=== PATIENT | female | born 1950 | race Caucasian/White ===

== ENCOUNTER 2017-01-15 17:04 | Inpatient (IN) | payer MEDICARE ==
[~2017-01-15] VITALS: Ht 152.4 cm; Wt 102.1 kg
[~2017-01-15 17:04] MED LIST: ALBU0.632 IH; ALPR0.5T PO; ASPI81TA57 PO; CALC-671 PO; CARV6.252 PO; CITA20TA12 PO; CRAN250C PO; ENAL20TA PO; FURO40TA PO; HYDR-3720 PO; INSU100I14 SQ; INSU100V5 SQ; MAGN400T6 PO; MELO-195 PO; METF-380 PO; MONT10TA21 PO; MULT-166 PO; NITR-65 PO; OMEG-12 PO; OMEG1CAP PO; POTA10TA36 PO; POTASSIUM GLUCONATE PO; RT-ALBUINH IH; SENN-75 PO; SIMV40TA PO
--- OUTSIDE RECORDS SUMMARY | 2017-01-15 17:08 | XMS REPORT ---
Author Author HERACLIO MCBRIDE [facility] eClinicalWorks Address Unknown Phone Unavailable Care Team Providers Care Power Equipment Technology Instructor Name Role Phone HERACLIO MCBRIDE CP Unavailable Allergies No Known Allergies Problems Problem Type Condition ICD-9 Code Onset Dates Condition Status Problem Memory loss 780.93 Active Problem Depressive disorder, not elsewhere classified 311 Active Problem Other and unspecified hyperlipidemia 272.4 Active Problem Hyperlipemia 272.4 Active Problem Diabetes mellitus 250.00 Active Problem Hypertension 401.9 Active Problem Essential hypertension, benign 401.1 Active Problem Diabetes mellitus without mention of complication, type II or unspecified type, not stated as uncontrolled 250.00 Active Problem Need for prophylactic vaccination and inoculation, Influenza V04.81 Active Problem Routine general medical examination at health care facility V70.0 Active Assessment Hyperthyroidism, subclinical 242.90 Active Problem Unspecified vitamin D deficiency 268.9 Active Problem Anxiety state, unspecified 300.00 Active Problem Obstructive sleep apnea (adult) (pediatric) 327.23 Active Problem Asthma, unspecified, unspecified status 493.90 Active Problem Thyrotoxicosis without mention of goiter or other cause, without mention of thyrotoxic crisis or storm 242.90 Active Problem Unspecified myalgia and myositis 729.1 Active Medications No Known Medications Procedures Procedure Coding System Code Date VENIPUNCT, ROUTINE* CPT-4 68986 Feb 21, 2015 [facility] NOBLL Feb 21, 2015 Results Name Result Date Reference Range Unit Abnormality Flag ROUTINE VENIPUNCTURE TSH Summary Purpose eClinicalWorks Submission
--- OUTSIDE RECORDS SUMMARY | 2017-01-15 17:08 | XMS REPORT ---
Author Author HERACLIO MCBRIDE [facility] eClinicalWorks Address Unknown Phone Unavailable Care Team Providers Care Parts Salesman Name Role Phone HERACLIO MCBRIDE Unavailable Allergies No Known Allergies Problems Problem [...] Coding System Code Date VENIPUNCT, ROUTINE* CPT-4 16861 Mar 23, 2015 [facility] NOBLL Mar 23, 2015 Results No Known Results Summary Purpose Career ElementinicalWorks Submission
--- OUTSIDE RECORDS SUMMARY | 2017-01-15 17:09 | XMS REPORT ---
Author Author HERACLIO MCBRIDE eClinicalWorks Address Unknown Phone Unavailable Care Team Providers Care Primer And Powder Canning Leader Name Role Phone HERACLIO MCBRIDE CP Unavailable Allergies No Known Allergies Problems Problem Type Condition Code Onset Dates Condition Status Problem Vitamin D deficiency E55.9 Active Problem Moderate persistent asthma without complication J45.40 Active Problem Anxiety F41.9 Active Problem Chronic prescription opiate use Z79.899 Active Problem Chronic prescription benzodiazepine use Z79.899 Active Problem Chronic pain syndrome G89.4 Active Problem Major depressive disorder, recurrent episode, unspecified severity F33.9 Active Problem Hyperlipidemia, unspecified hyperlipidemia E78.5 Active Problem Type 2 diabetes mellitus with peripheral neuropathy E11.42 Active Problem Essential hypertension I10 Active Problem Takotsubo cardiomyopathy I51.81 Active Problem Obstructive sleep apnea G47.33 Active Problem Other specified hypothyroidism E03.8 Active Medications No Known Medications Results No Known Results Summary Purpose eClinicalWorks Submission
--- OUTSIDE RECORDS SUMMARY | 2017-01-15 17:09 | XMS REPORT ---
Author Author HERACLIO MCBRIDE [facility] [place] eClinicalWorks Address Unknown Phone Unavailable Care Team Providers Care Rice Field Worker Name Role Phone HERACLIO MCBRIDE CP Unavailable Allergies No Known Allergies Problems Problem Type Condition Code Onset Dates Condition Status Problem Anxiety F41.9 Active Problem Hyperlipidemia, unspecified hyperlipidemia E78.5 Active Problem Moderate persistent asthma without complication J45.40 Active Problem Chronic prescription opiate use Z79.899 Active Problem Chronic prescription benzodiazepine use Z79.899 Active Problem Chronic pain syndrome G89.4 Active Problem Type 2 diabetes mellitus without complication E11.9 Active Problem Major depressive disorder, recurrent episode, unspecified severity F33.9 Active Problem Type 2 diabetes mellitus with peripheral neuropathy E11.42 Active Problem Essential hypertension I10 Active Problem Takotsubo cardiomyopathy I51.81 Active Problem Obstructive sleep apnea G47.33 Active Assessment Hyperlipidemia, unspecified hyperlipidemia E78.5 Active Problem Other specified hypothyroidism E03.8 Active Assessment History of radioactive iodine thyroid ablation Z92.3 Active Problem Vitamin D deficiency E55.9 Active Medications No Known Medications Procedures Procedure Coding System Code Date VENIPUNCT, ROUTINE* CPT-4 72455 Mar 05, 2016 [facility] NOBLL Mar 05, 2016 Results No Known Results Summary Purpose eClinicalWorks Submission
--- OUTSIDE RECORDS SUMMARY | 2017-01-15 17:09 | XMS REPORT ---
Author Author HERACLIO MCBRIDE eClinicalWorks Address Unknown Phone Unavailable Care Team Providers Care Milieu Counselor Name Role Phone HERACLIO MCBRIDE Unavailable Allergies No Known Allergies Problems Problem Type Condition Code Onset Dates Condition Status Problem Takotsubo cardiomyopathy I51.81 Active Problem Other specified hypothyroidism E03.8 Active Problem Obstructive sleep apnea G47.33 Active Problem Type 2 diabetes mellitus without complication E11.9 Active Problem Major depressive disorder, recurrent episode, unspecified severity F33.9 Active Problem Essential hypertension I10 Active Problem Anxiety F41.9 Active Problem Vitamin D deficiency E55.9 Active Problem Hyperlipidemia, unspecified hyperlipidemia E78.5 Active Problem Moderate persistent asthma without complication J45.40 Active Medications No Known Medications Results No Known Results Summary Purpose eClinicalWorks Submission
--- OUTSIDE RECORDS SUMMARY | 2017-01-15 17:09 | XMS REPORT ---
Author Author HERACLIO MCBRIDE eClinicalWorks Address Unknown Phone Unavailable Care Team Providers Care Animal Trainer Supervisor Name Role Phone HERACLIO MCBRIDE Unavailable Allergies [...]
--- OUTSIDE RECORDS SUMMARY | 2017-01-15 17:09 | XMS REPORT ---
Author Author HERACLIO MCBRIDE eClinicalWorks Address Unknown Phone Unavailable Care Team Providers Care Transmission Superintendent Name Role Phone HERACLIO MCBRIDE Unavailable Allergies [...] persistent asthma without complication J45.40 Active Medications Medication Code System Code Instructions Start Date End Date Status Dosage Hydrocodone-Acetaminophen [facility] [address]-49 10-325 MG September 14, 2014 take 1 tablet by Oral route every 6 hours as needed for pain PRN Results No Known Results Summary Purpose eClinicalWorks Submission
--- OUTSIDE RECORDS SUMMARY | 2017-01-15 17:09 | XMS REPORT ---
Author Author HERACLIO MCBRIDE eClinicalWorks Address Unknown Phone Unavailable Care Team Providers Care Directory Compiler Name Role Phone HERACLIO MCBRIDE Unavailable Allergies [...]
--- OUTSIDE RECORDS SUMMARY | 2017-01-15 17:09 | XMS REPORT ---
Author Author HERACLIO MCBRIDE eClinicalWorks Address Unknown Phone Unavailable Care Team Providers Care Gas Leak Inspector Name Role Phone HERACLIO MCBRIDE Unavailable Allergies, Adverse Reactions, Alerts Substance Reaction Event Type Erythromycin Base Info Not Available Drug Allergy Problems Problem Type Condition Code Onset Dates [...] Moderate persistent asthma without complication J45.40 Active Assessment Hyperlipidemia, unspecified hyperlipidemia E78.5 Active Assessment Osteoarthritis 715.90 Active Assessment Hyperthyroidism, subclinical 242.90 Active Assessment Anxiety F41.9 Active Assessment Moderate persistent asthma without complication J45.40 Active Assessment Encounter for immunization Z23 Active Assessment Essential hypertension I10 Active Assessment Takotsubo cardiomyopathy I51.81 Active Assessment Type 2 diabetes mellitus without complication E11.9 Active Medications Medication Code System Code Instructions Start Date End Date Status Dosage Qvar [facility] [address]-32 40 mcg/actuation Inhalation Twice daily October 21, 2013 2 puffs Xanax [facility] [address]-93 0.5 MG September 14, 2014 take 1 tablet by Oral route 3 times per day PRN Klor-Con M10 [facility] [address]-46 10 MEQ Orally Twice a day 1 tablet Calcium ND 0 Oral 1 tab Atorvastatin Calcium [facility] 93055737602 80 MG oral daily 1 tablet at bedtime [place]-3 [facility] [address] 1,050-1,200 mg Jun 14, 2013 2 Capsule 1 time per day Carvedilol [facility] [address]-68 25 MG oral twice daily one tablet Citalopram Hydrobromide [facility] 42845427274 40 MG oral daily 1 tablet Ventolin HFA [facility] 66748865604 108 (90 Base) MCG/ACT inhalation q4 hours prn shortness of breath 1 puff Vitamin D (Cholecalciferol) [facility] [address]-64 1000 UNIT Orally Once a day 1 tablet Metamucil [facility] [address]36 0.52 gram Jun 14, 2013 1 Capsule 1 time per day Nystatin [facility] [address]-25 100,000 unit/gram Jun 14, 2013 apply to the affected area(s) by Topical route 1 time per day Albuterol Sulfate [facility] [address]-68 2.5 mg /3 mL (0.083 %) Jun 14, 2013 inhale 3 milliliters (2.5 mg) by nebulization route 4 times per day as needed Enalapril Maleate [facility] 08975182173 20 MG oral daily one tablet Vitamin B-12 [facility] [address] 1,000 mcg December 27, 2013 1 Tablet every day Cinnamon [facility] [address]-57 500 MG Orally not defined Aspirin [facility] [address]-38 81 mg Jun 14, 2013 take 1 tablet (81 mg ) by oral route once daily Levemir Flexpen [facility] 0 100 UNIT/ML Subcutaneous 2 times a day 20 units Hydrocodone-Acetaminophen [facility] [address]-75 10-325 MG September 14, 2014 take 1 tablet by Oral route every 6 hours as needed for pain PRN Furosemide [facility] [address]-13 40 MG Orally Once a day Apr 25, 2015 1 tablet NovoLog Flexpen [facility] [address]-99 100 UNIT/ML Subcutaneous 3 times a day 20 units plus sliding scale Procedures Procedure Coding System Code Date FLUZONE TRIV HIGH DOSE (65 & UP)-SANOFI PASTEUR-2014 CPT-4 54926 Apr 25, 2015 SINGLE IMMUNIZATION ADMIN CPT-4 77614 Apr 25, 2015 GLYCATED HEMOGLOBIN TEST CPT-4 79823 Apr 25, 2015 [facility] VISIT ESTABLISHED PATIENT CPT-4 G0467 Apr 25, 2015 [facility] NOBLL Apr 25, 2015 VENIPUNCT, ROUTINE* CPT-4 34852 Apr 25, 2015 Office Visit, Est Pt., Level 4 CPT-4 03202 Apr 25, 2015 Vital Signs Date/Time: Apr 25, 2015 Temperature 97.8 F Weight 208.3 lbs Height 61 in BMI 39.35 Index Blood Pressure Diastolic 80 mmHg Blood Pressure Systolic 126 mmHg Cardiac Monitoring Heart Rate 86 bpm Results Name Result Date Reference Range Unit Abnormality Flag A1C (IN HOUSE) Immunizations Vaccine Administration Date FLUZONE TRIV HIGH DOSE (65 & UP)-SANOFI PASTEUR-2014Apr 25, 2015 Summary Purpose eClinicalWorks Submission
--- OUTSIDE RECORDS SUMMARY | 2017-01-15 17:09 | XMS REPORT ---
Author Author HERACLIO MCBRIDE eClinicalWorks Address Unknown Phone Unavailable Care Team Providers Care Us Marketing Director Name Role Phone HERACLIO MCBRIDE CP Unavailable [...] Problem Other specified hypothyroidism E03.8 Active Problem Vitamin D deficiency E55.9 Active Medications No Known Medications Results No Known Results Summary Purpose eClinicalWorks Submission
--- OUTSIDE RECORDS SUMMARY | 2017-01-15 17:09 | XMS REPORT ---
Author Author HERACLIO MCBRIDE [facility] eClinicalWorks Address Unknown Phone Unavailable Care Team Providers Care Underwriter Solicitation Director Name Role Phone HERACLIO MCBRIDE Unavailable Allergies [...] examination at health care facility V70.0 Active Problem Unspecified vitamin D deficiency 268.9 Active Problem Anxiety state, unspecified 300.00 Active Problem Obstructive sleep apnea (adult) (pediatric) 327.23 Active Problem Asthma, unspecified, unspecified status 493.90 Active Problem Thyrotoxicosis without mention of goiter or other cause, without mention of thyrotoxic crisis or storm 242.90 Active Problem Unspecified myalgia and myositis 729.1 Active Medications No Known Medications Results No Known Results Summary Purpose eClinicalWorks Submission
--- OUTSIDE RECORDS SUMMARY | 2017-01-15 17:09 | XMS REPORT ---
Author Author CHARLY TEE [facility] eClinicalWorks Address Unknown Phone Unavailable Care Team Providers Care Professor Sculpture Name Role Phone CHARLY TEE CP Unavailable Allergies, Adverse Reactions, Alerts Substance Reaction [...] Problem Obstructive sleep apnea G47.33 Active Assessment Pharyngitis J02.9 Active Problem Other specified hypothyroidism E03.8 Active Assessment Sore throat J02.9 Active Problem Vitamin D deficiency E55.9 Active Medications Medication Code System Code Instructions Start Date End Date Status Dosage Cinnamon [facility] [address]-11 500 MG Orally not defined Levemir Flexpen [facility] 0 100 UNIT/ML Subcutaneous 2 times a day 20 units Amoxicillin [facility] [address]-33 500 MG Orally Three times a day October 17, 2015 October 27, 2015 1 capsule Metamucil [facility] [address]406 0.52 gram Jun 14, 2013 1 Capsule 1 time per day Atorvastatin Calcium [facility] [address]-40 80 MG oral daily 1 tablet at bedtime Accu-Chek Jodee SmartView [facility] [address]-67 w/Device Jun 15, 2015 as directed Albuterol Sulfate [facility] [address]-13 2.5 mg /3 mL (0.083 %) Jun 14, 2013 inhale 3 milliliters (2.5 mg) by nebulization route 4 times per day as needed NovoLog Flexpen [facility] [address]-15 100 UNIT/ML Subcutaneous 3 times a day 20 units plus sliding scale Vitamin B-12 [facility] [address] 1,000 mcg December 27, 2013 1 Tablet every day Qvar [facility] [address]-43 40 mcg/actuation Inhalation Twice daily October 21, 2013 2 puffs Furosemide [facility] [address]-50 40 MG Orally Once a day Apr 25, 2015 1 tablet Carvedilol [facility] [address]-22 25 MG oral 2 times a day one tablet Accu-Chek SmartView ND 0 Test Strips 4 times a day Jun 15, 2015 as directed Citalopram Hydrobromide [facility] 94479128175 40 MG oral daily 1 tablet Vitamin D (Cholecalciferol) [facility] [address]-46 1000 UNIT Orally Once a day 1 tablet Calcium ND 0 Oral 1 tab Montelukast Sodium [facility] [address]-69 10 MG Orally Once a day September 17, 2015 1 tablet in the evening [place]-3 [facility] [address] 1,050-1,200 mg Jun 14, 2013 2 Capsule 1 time per day Nystatin [facility] [address]-88 100,000 unit/gram Jun 14, 2013 apply to the affected area(s) by Topical route 1 time per day Gabapentin [facility] [address]-68 300 MG Orally Three times a day (start once daily at nightx 1wk, then twice pubbwu1rq, then 3x daily) October 12, 2015 1 capsule Xanax [facility] [address]-98 0.5 MG September 14, 2014 take 1 tablet by Oral route 3 times per day PRN Aspirin [facility] [address]-14 81 mg Jun 14, 2013 take 1 tablet (81 mg ) by oral route once daily Klor-Con M10 [facility] [address]-95 10 MEQ Orally Twice a day December 12, 2015 1 tablet Ventolin HFA [facility] 83530184030 108 (90 Base) MCG/ACT inhalation q4 hours prn shortness of breath 1 puff Hydrocodone-Acetaminophen [facility] [address]-96 10-325 MG September 14, 2014 take 1 tablet by Oral route every 6 hours as needed for pain PRN Enalapril Maleate [facility] [address]-17 20 mg oral daily one tablet Procedures Procedure Coding System Code Date Office Visit, Est Pt., Level 3 CPT-4 43190 October 17, 2015 STREP A ASSAY W/OPTIC CPT-4 62581 October 17, 2015 Vital Signs Date/Time: October 17, 2015 Temperature 97.3 F Weight 223.6 lbs Height 61 in BMI 42.24 Index Cardiac Monitoring Heart Rate 62 bpm Results Name Result Date Reference Range Unit Abnormality Flag STREP A (IN HOUSE) ----STREP A positive [id number] ----Control + [id number] ----Lot # [id number] ----Exp date [id number] Summary Purpose eClinicalWorks Submission
--- OUTSIDE RECORDS SUMMARY | 2017-01-15 17:10 | XMS REPORT ---
Author Author HERACLIO MCBRIDE [facility] eClinicalWorks Address Unknown Phone Unavailable Care Team Providers Care Civil Engineering Director Name Role Phone HERACLIO MCBRIDE Unavailable [...] Unspecified myalgia and myositis 729.1 Active Medications Medication Code System Code Instructions Start Date End Date Status Dosage Carvedilol [facility] [address]-00 25 MG TAKE ONE TABLET BY MOUTH TWICE DAILY Results No Known Results Summary Purpose eClinicalWorks Submission
--- OUTSIDE RECORDS SUMMARY | 2017-01-15 17:10 | XMS REPORT ---
Author Author HERACLIO MCBRIDE eClinicalWorks Address Unknown Phone Unavailable Care Team Providers Care Huc Name Role Phone HERACLIO MCBRIDE Unavailable Allergies [...] Instructions Start Date End Date Status Dosage Atorvastatin Calcium [facility] [address]-01 80 MG oral daily 1 tablet at bedtime Furosemide [facility] [address]-68 40 MG Orally Once a day Apr 25, 2015 1 tablet Accu-Chek Jodee SmartView [facility] [address]-03 w/Device Jun 15, 2015 as directed Carvedilol [facility] [address]-37 25 MG oral 2 times a day one tablet Xanax [facility] [address]-13 0.5 MG September 14, 2014 take 1 tablet by Oral route 3 times per day PRN Accu-Chek SmartView NDC 0 Test Strips 4 times a day Jun 15, 2015 as directed Klor-Con M10 [facility] [address]-34 10 MEQ Orally Twice a day December 12, 2015 1 tablet Results No Known Results Summary Purpose eClinicalWorks Submission
--- OUTSIDE RECORDS SUMMARY | 2017-01-15 17:10 | XMS REPORT ---
Author Author HERACLIO MCBRIDE eClinicalWorks Address Unknown Phone Unavailable Care Team Providers Care Electron Beam Photo Mask Technician Name Role Phone HERACLIO MCBRIDE Unavailable Allergies [...] Instructions Start Date End Date Status Dosage Furosemide [facility] [address]-14 40 MG Orally Once a day Apr 25, 2015 1 tablet Results No Known Results Summary Purpose eClinicalWorks Submission
--- OUTSIDE RECORDS SUMMARY | 2017-01-15 17:10 | XMS REPORT ---
Author Author HERACLIO MCBRIDE eClinicalWorks Address Unknown Phone Unavailable Care Team Providers Care Cooker Sulfate Name Role Phone HERACLIO MCBRIDE Unavailable Allergies [...]
--- OUTSIDE RECORDS SUMMARY | 2017-01-15 17:10 | XMS REPORT ---
Author Author HERACLIO MCBRIDE eClinicalWorks Address Unknown Phone Unavailable Care Team Providers Care Automatic Buffer Name Role Phone HERACLIO MCBRIDE Unavailable Allergies [...]
--- OUTSIDE RECORDS SUMMARY | 2017-01-15 17:10 | XMS REPORT ---
Author Author RAE HERACLIO Organization [facility] Address [address] [place] [address] Care Team Providers Care Cast Iron Dipper Name Role Phone LOUISE MCBRIDEHANY Unavailable PROBLEMS Type Condition ICD9-CM Code KXY81-LF Code Onset Dates Condition Status SNOMED Code Problem Anxiety F41.9 Active 13542180 Problem Hyperlipidemia, unspecified hyperlipidemia E78.5 Active 19759170 Problem Moderate persistent asthma without complication J45.40 Active 864268203 Problem Chronic pain syndrome G89.4 Active 287738566 Problem Chronic prescription opiate use Z79.899 Active 118941491 Problem Essential hypertension I10 Active 23122928 Problem Major depressive disorder, recurrent episode, unspecified severity F33.9 Active 60304844 Problem Chronic prescription benzodiazepine use Z79.899 Active 034634692 Problem Type 2 diabetes mellitus with peripheral neuropathy E11.42 Active 9146615687399 Assessment Bradycardia R00.1 Mar, Active 38647581 Assessment Memory loss R41.3 Mar, Active 85763336 Assessment Decreased GFR R94.4 Mar, Active 30601339 Problem Takotsubo cardiomyopathy I51.81 Active 669305856 Problem Obstructive sleep apnea G47.33 Active 88768463 Assessment Chest pain, unspecified type R07.9 Mar, Active 57088836 Problem Other specified hypothyroidism E03.8 Active 135379014 Assessment Type 2 diabetes mellitus with peripheral neuropathy E11.42 Mar, Active 4748202740788 Problem Vitamin D deficiency E55.9 Active 09081184 ALLERGIES Substance Reaction Event Type Date Status Erythromycin Base Unknown Drug Allergy Mar, Active SOCIAL HISTORY No smoking Hx information available PLAN OF CARE VITAL SIGNS Height 61 in 2016-03-18 Weight 229.0 lbs 2016-03-18 Heart Rate 44 bpm 2016-03-18 BMI 43.26 kg/m2 2016-03-18 Blood pressure systolic 140 mmHg 2016-03-18 Blood pressure diastolic 78 mmHg 2016-03-18 MEDICATIONS Medication Instructions Dosage Frequency Start Date End Date Duration Status Vitamin B-12 1,000 mcg 1 Tablet every day 24 Dec, 2013 Active Enalapril Maleate 20 mg Orally Once a day 1 tablet 24h 90 days Active Citalopram Hydrobromide 40 MG Orally Once a day 1 tablet 24h 90 days Active Qvar 40 mcg/actuation Inhalation Twice daily 2 puffs Oct, Active Accu-Chek Jodee SmartView w/Device as directed Jun, Active Vitamin D (Cholecalciferol) 1000 UNIT Orally Once a day 1 tablet 24h Active Calcium 1 tab Active Xanax 0.5 MG take 1 tablet by Oral route 3 times per day PRN Sep, Active [place]-3 1,050-1,200 mg 2 Capsule 1 time per day Jun, Active NovoLog Flexpen 100 UNIT/ML Subcutaneous 3 times a day 20 units plus sliding scale 8h Active Albuterol Sulfate 2.5 mg /3 mL (0.083 %) inhale 3 milliliters (2.5 mg) by nebulization route 4 times per day as needed Jun, Active Levemir Flexpen 100 UNIT/ML Subcutaneous 2 times a day 20 units 12h Active Furosemide 40 mg Orally Once a day 1 tablet 24h 90 days Active Montelukast Sodium 10 mg Orally Once a day 1 tablet in the evening 24h Sep, 90 days Active Accu-Chek SmartView Test Strips as directed 6h Jun, 90 days Active Aspirin 81 mg take 1 tablet (81 mg) by oral route once daily Jun, Active Levothyroxine Sodium 150 MCG Orally Once a day 1 tablet on an empty stomach in the morning 24h 13 Mar, 2016 90 days Active Ventolin HFA 108 (90 Base) MCG/ACT inhalation q4 hours prn shortness of breath 1 puff Active Metamucil 0.52 gram 1 Capsule 1 time per day Jun, Active Potassium Chloride Lela ER 10 MEQ Orally Twice a day 1 tablet with food 12h Sep, 90 days Active Carvedilol 25 MG Orally 2 times a day 1/2 tablet 12h 90 days Active Atorvastatin Calcium 80 MG Orally Once a day 1 tablet 24h 90 days Active Lyrica 50 mg Orally Three times a day 1 capsule 8h 15 Mar, 2016 30 days Active Hydrocodone-Acetaminophen 10-325 MG take 1 tablet by Oral route every 6 hours as needed for pain PRN Sep, Active RESULTS Name Result Date Reference Range A1C (IN HOUSE) 2016-03-18 A1C IN HOUSE 6.6 4.3 - 5.6 % Previous A1c 6.3 Lot 0620 Exp date PROCEDURES Procedure Date Ordered Related Diagnosis Body Site EKG, TRACING (IN-HOUSE) 2016-03-18 N/A GLYCATED HEMOGLOBIN TEST Mar 18, 2016 [facility] VISIT ESTABLISHED PATIENT Mar 18, 2016 ELECTROCARDIOGRAM, TRACING Mar 18, 2016 Office Visit, Est Pt., Level 4 Mar 18, 2016 IMMUNIZATIONS No Known Immunizations
--- OUTSIDE RECORDS SUMMARY | 2017-01-15 17:10 | XMS REPORT ---
Author Author HERACLIO MCBRIDE [facility] eClinicalWorks Address Unknown Phone Unavailable Care Team Providers Care Living Advisor Name Role Phone HERACLIO MCBRIDE Unavailable Allergies [...]
--- OUTSIDE RECORDS SUMMARY | 2017-01-15 17:10 | XMS REPORT ---
Author Author HERACLIO MCBRIDE [facility] eClinicalWorks Address Unknown Phone Unavailable Care Team Providers Care Residential Aide Name Role Phone HERACLIO MCBRIDE Unavailable Allergies [...]
--- OUTSIDE RECORDS SUMMARY | 2017-01-15 17:10 | XMS REPORT ---
Author Author HERACLIO MCBRIDE [employer] Address Unknown Phone Unavailable Care Team Providers Care Fire Eater Name Role Phone HERACLIO MCBRIDE Unavailable Allergies [...]
--- OUTSIDE RECORDS SUMMARY | 2017-01-15 17:10 | XMS REPORT ---
Author Author HERACLIO MCBRIDE [employer] Address Unknown Phone Unavailable Care Team Providers Care Seeing Eye Dog Trainer Name Role Phone HERACLIO MCBRIDE Unavailable Allergies [...]
--- OUTSIDE RECORDS SUMMARY | 2017-01-15 17:11 | XMS REPORT ---
Author Author HERACLIO MCBRIDE [employer] Address Unknown Phone Unavailable Care Team Providers Care Theater Education Teacher Name Role Phone HERACLIO MCBRIDE Unavailable Allergies [...]
--- OUTSIDE RECORDS SUMMARY | 2017-01-15 17:11 | XMS REPORT | Continuity of Care Document ---
Author Author [facility] Address Unknown Phone Unavailable Allergies Active Description Code Type Severity Reaction Onset Reported/Identified Relationship to Patient Clinical Status Yes Erythromycin Base Drug Allergy N/A N/A 06/14/2013 Yes amoxicillin [id number] Drug Allergy Unknown N/A 10/03/2014 Yes erythromycin base [id number] Drug Allergy Severe RASH 10/03/2014 Medications Problems Date Dx Coded Attending Type Code Diagnosis Diagnosed By 06/14/2013 HERACLIO MCBRIDE MD N 250.00 DIABETES II CONTROLLED (UNCOMPLICATED) 06/14/2013 HERACLIO MCBRIDE MD N 272.4 HYPERLIPIDEMIA 06/14/2013 HERACLIO MCBRIDE MD N 300.00 AN ANXIETY UNSPEC 06/14/2013 HERACLIO MCBRIDE MD N 311 DEPRESSIVE DISORDER NOT ELSEWHERE CLASSIFIED 06/14/2013 HERACLIO MCBRIDE MD N 401.1 HYPERTENSION, BENIGN ESSENTIAL 06/14/2013 HERACLIO MCBRIDE MD N 493.90 ASTHMA UNSPECIFIED 06/14/2013 HERACLIO MCBRIDE MD N 729.1 MYALGIA AND MYOSITIS UNSPECIFIED 06/14/2013 HERACLIO MCBRIDE MD N 780.93 MEMORY LOSS 06/14/2013 HERACLIO MCBRIDE MD N V04.81 FLU SHOT 06/14/2013 HERACLIO MCBRIDE MD N V70.0 EXAM - ROUTINE H&P 06/14/2013 HERACLIO MCBRIDE MD N 250.00 DIABETES II CONTROLLED (UNCOMPLICATED) 06/14/2013 HERACLIO MCBRIDE MD N 272.4 HYPERLIPIDEMIA 06/14/2013 HERACLIO MCBRIDE MD N 300.00 AN ANXIETY UNSPEC 06/14/2013 HERACLIO MCBRIDE MD N 311 DEPRESSIVE DISORDER NOT ELSEWHERE CLASSIFIED 06/14/2013 HERACLIO MCBRIDE MD N 401.1 HYPERTENSION, BENIGN ESSENTIAL 06/14/2013 HERACLIO MCBRIDE MD N 493.90 ASTHMA UNSPECIFIED 06/14/2013 HERACLIO MCBRIDE MD N 729.1 MYALGIA AND MYOSITIS UNSPECIFIED 06/14/2013 HERACLIO MCBRIDE MD N 780.93 MEMORY LOSS 06/14/2013 HERACLIO MCBRIDE MD N V04.81 FLU SHOT 06/14/2013 HERACLIO MCBRIDE MD V70.0 EXAM - ROUTINE H&P 06/14/2013 HERACLIO MCBRIDE MD N 250.00 DIABETES II CONTROLLED (UNCOMPLICATED) 06/14/2013 HERACLIO MCBRIDE MD N 272.4 HYPERLIPIDEMIA 06/14/2013 HERACLIO MCBRIDE MD N 300.00 AN ANXIETY UNSPEC 06/14/2013 HERACLIO MCBRIDE MD N 311 DEPRESSIVE DISORDER NOT ELSEWHERE CLASSIFIED 06/14/2013 HERACLIO MCBRIDE MD N 401.1 HYPERTENSION, BENIGN ESSENTIAL 06/14/2013 HERACLIO MCBRIDE MD N 493.90 ASTHMA UNSPECIFIED 06/14/2013 HERACLIO MCBRIDE MD N 729.1 MYALGIA AND MYOSITIS UNSPECIFIED 06/14/2013 HERACLIO MCBRIDE MD N 780.93 MEMORY LOSS 06/14/2013 HERACLIO MCBRIDE MD N V04.81 FLU SHOT 06/14/2013 HERACLIO MCBRIDE MD N V70.0 EXAM - ROUTINE H&P 06/14/2013 HERACLIO MCBRIDE MD N 250.00 DIABETES II CONTROLLED (UNCOMPLICATED) 06/14/2013 HERACLIO MCBRIDE MD N 272.4 HYPERLIPIDEMIA 06/14/2013 HERACLIO MCBRIDE MD N 300.00 AN ANXIETY UNSPEC 06/14/2013 HERACLIO MCBRIDE MD N 311 DEPRESSIVE DISORDER NOT ELSEWHERE CLASSIFIED 06/14/2013 HERACLIO MCBRIDE MD N 401.1 HYPERTENSION, BENIGN ESSENTIAL 06/14/2013 HERACLIO MCBRIDE MD N 493.90 ASTHMA UNSPECIFIED 06/14/2013 HERACLIO MCBRIDE MD N 729.1 MYALGIA AND MYOSITIS UNSPECIFIED 06/14/2013 HERACLIO MCBRIDE MD N 780.93 MEMORY LOSS 06/14/2013 HERACLIO MCBRIDE MD N V04.81 FLU SHOT 06/14/2013 HERACLIO MCBRIDE MD N V70.0 EXAM - ROUTINE H&P 06/14/2013 HERACLIO MCBRIDE MD N 250.00 DIABETES II CONTROLLED (UNCOMPLICATED) 06/14/2013 HERACLIO MCBRIDE MD N 272.4 HYPERLIPIDEMIA 06/14/2013 HERACLIO MCBRIDE MD N 300.00 AN ANXIETY UNSPEC 06/14/2013 HERACLIO MCBRIDE MD N 311 DEPRESSIVE DISORDER NOT ELSEWHERE CLASSIFIED 06/14/2013 HERACLIO MCBRIDE MD N 401.1 HYPERTENSION, BENIGN ESSENTIAL 06/14/2013 HERACLIO MCBRIDE MD N 493.90 ASTHMA UNSPECIFIED 06/14/2013 HERACLIO MCBRIDE MD N 729.1 MYALGIA AND MYOSITIS UNSPECIFIED 06/14/2013 HERACLIO MCBRIDE MD N 780.93 MEMORY LOSS 06/14/2013 HERACLIO MCBRIDE MD N V04.81 FLU SHOT 06/14/2013 HERACLIO MCBRIDE MD N V70.0 EXAM - ROUTINE H&P 06/14/2013 HERACLIO MCBRIDE MD N 250.00 DIABETES II CONTROLLED (UNCOMPLICATED) 06/14/2013 HERACLIO MCBRIDE MD N 272.4 HYPERLIPIDEMIA 06/14/2013 HERACLIO MCBRIDE MD N 300.00 AN ANXIETY UNSPEC 06/14/2013 HERACLIO MCBRIDE MD N 311 DEPRESSIVE DISORDER NOT ELSEWHERE CLASSIFIED 06/14/2013 HERACLIO MCBRIDE MD N 401.1 HYPERTENSION, BENIGN ESSENTIAL 06/14/2013 HERACLIO MCBRIDE MD N 493.90 ASTHMA UNSPECIFIED 06/14/2013 HERACLIO MCBRIDE MD N 729.1 MYALGIA AND MYOSITIS UNSPECIFIED 06/14/2013 HERACLIO MCBRIDE MD N 780.93 MEMORY LOSS 06/14/2013 HERACLIO MCBRIDE MD N V04.81 FLU SHOT 06/14/2013 HERACLIO MCBRIDE MD N V70.0 EXAM - ROUTINE H&P 06/14/2013 HERACLIO MCBRIDE MD N 250.00 DIABETES II CONTROLLED (UNCOMPLICATED) 06/14/2013 HERACLIO MCBRIDE MD N 272.4 HYPERLIPIDEMIA 06/14/2013 HERACLIO MCBRIDE MD N 300.00 AN ANXIETY UNSPEC 06/14/2013 HERACLIO MCBRIDE MD N 311 DEPRESSIVE DISORDER NOT ELSEWHERE CLASSIFIED 06/14/2013 HERACLIO MCBRIDE MD N 401.1 HYPERTENSION, BENIGN ESSENTIAL 06/14/2013 HERACLIO MCBRIDE MD N 493.90 ASTHMA UNSPECIFIED 06/14/2013 HERACLIO MCBRIDE MD N 729.1 MYALGIA AND MYOSITIS UNSPECIFIED 06/14/2013 HERACLIO MCBRIDE MD N 780.93 MEMORY LOSS 06/14/2013 HERACLIO MCBRIDE MD N V04.81 FLU SHOT 06/14/2013 HERACLIO MCBRIDE MD N V70.0 EXAM - ROUTINE H&P 06/14/2013 HERACLIO MCBRIDE MD N 250.00 DIABETES II CONTROLLED (UNCOMPLICATED) 06/14/2013 HERACLIO MCBRIDE MD N 272.4 HYPERLIPIDEMIA 06/14/2013 HERACLIO MCBRIDE MD N 300.00 AN ANXIETY UNSPEC 06/14/2013 HERACLIO MCBRIDE MD N 311 DEPRESSIVE DISORDER NOT ELSEWHERE CLASSIFIED 06/14/2013 HERACLIO MCBRIDE MD 401.1 HYPERTENSION, BENIGN ESSENTIAL 06/14/2013 HERACLIO MCBRIDE MD N 493.90 ASTHMA UNSPECIFIED 06/14/2013 HERACLIO MCBRIDE MD N 729.1 MYALGIA AND MYOSITIS UNSPECIFIED 06/14/2013 HERACLIO MCBRIDE MD N 780.93 MEMORY LOSS 06/14/2013 HERACLIO MCBRIDE MD N V04.81 FLU SHOT 06/14/2013 HERACLIO MCBRIDE MD V70.0 EXAM - ROUTINE H&P 06/14/2013 ROXANA NORRIS MD 250.00 DIABETES II CONTROLLED (UNCOMPLICATED) 06/14/2013 ROXANA NORRIS MD 272.4 HYPERLIPIDEMIA 06/14/2013 ROXANA NORRIS MD 300.00 AN ANXIETY UNSPEC 06/14/2013 ROXANA NORRIS MD 311 DEPRESSIVE DISORDER NOT ELSEWHERE CLASSIFIED 06/14/2013 ROXANA NORRIS MD 401.1 HYPERTENSION, BENIGN ESSENTIAL 06/14/2013 ROXANA NORRIS MD 493.90 ASTHMA UNSPECIFIED 06/14/2013 ROXANA NORRIS MD 729.1 MYALGIA AND MYOSITIS UNSPECIFIED 06/14/2013 ROXANA NORRIS MD 780.93 MEMORY LOSS 06/14/2013 ROXANA NORRIS MD V04.81 FLU SHOT 06/14/2013 ROXANA NORRIS MD V70.0 EXAM - ROUTINE H&P 06/14/2013 HERACLIO MCBRIDE MD N 250.00 DIABETES II CONTROLLED (UNCOMPLICATED) 06/14/2013 RAE MD, HERACLIO N 272.4 HYPERLIPIDEMIA 06/14/2013 HERACLIO MCBRIDE MD N 300.00 AN ANXIETY UNSPEC 06/14/2013 HERACLIO MCBRIDE MD N 311 DEPRESSIVE DISORDER NOT ELSEWHERE CLASSIFIED 06/14/2013 HERACLIO MCBRIDE MD N 401.1 HYPERTENSION, BENIGN ESSENTIAL 06/14/2013 HERACLIO MCBRIDE MD N 493.90 ASTHMA UNSPECIFIED 06/14/2013 HERACLIO MCBRIDE MD 729.1 MYALGIA AND MYOSITIS UNSPECIFIED 06/14/2013 HERACLIO MCBRIDE MD N 780.93 MEMORY LOSS 06/14/2013 HERACLIO MCBRIDE MD N V04.81 FLU SHOT 06/14/2013 HERACLIO MCBRIDE MD V70.0 EXAM - ROUTINE H&P 09/14/2013 HERACLIO MCBRIDE MD N 268.9 VITAMIN D DEFICIENCY 09/14/2013 HERACLIO MCBRIDE MD N 268.9 VITAMIN D DEFICIENCY 09/14/2013 HERACLIO MCBRIDE MD N 268.9 VITAMIN D DEFICIENCY 09/14/2013 HERACLIO MCBRIDE MD N 268.9 VITAMIN D DEFICIENCY 09/14/2013 HERACLIO MCBRIDE MD N 268.9 VITAMIN D DEFICIENCY 09/14/2013 HERACLIO MCBRIDE MD N 268.9 VITAMIN D DEFICIENCY 09/14/2013 HERACLIO MCBRIDE MD N 268.9 VITAMIN D DEFICIENCY 09/14/2013 ROXANA NORRIS MD 268.9 VITAMIN D DEFICIENCY 09/14/2013 HERACLIO MCBRIDE MD N 268.9 VITAMIN D DEFICIENCY 09/22/2013 HERACLIO MCBRIDE MD N 242.90 HYPERTHYROIDISM 09/22/2013 HERACLIO MCBRIDE MD N 242.90 HYPERTHYROIDISM 09/22/2013 HERACLIO MCBRIDE MD N 242.90 HYPERTHYROIDISM 09/22/2013 HERACLIO MCBRIDE MD N 242.90 HYPERTHYROIDISM 09/22/2013 HERACLIO MCBRIDE MD N 242.90 HYPERTHYROIDISM 09/22/2013 HERACLIO MCBRIDE MD N 242.90 HYPERTHYROIDISM 09/22/2013 HERACLIO MCBRIDE MD N 242.90 HYPERTHYROIDISM 09/22/2013 ROXANA NORRIS MD 242.90 HYPERTHYROIDISM 09/22/2013 HERACLIO MCBRIDE MD N 242.90 HYPERTHYROIDISM 12/27/2013 RAE MD, HERACLIO N 327.23 OBSTRUCTIVE SLEEP APNEA (ADULT) (PEDIATRIC ) 12/27/2013 HERACLIO MCBRIDE MD N 327.23 OBSTRUCTIVE SLEEP APNEA (ADULT) (PEDIATRIC ) 12/27/2013 HERACLIO MCBRIDE MD N 327.23 OBSTRUCTIVE SLEEP APNEA (ADULT) (PEDIATRIC ) 12/27/2013 HERACLIO MCBRIDE MD N 327.23 OBSTRUCTIVE SLEEP APNEA (ADULT) (PEDIATRIC ) 12/27/2013 HERACLIO MCBRIDE MD N 327.23 OBSTRUCTIVE SLEEP APNEA (ADULT) (PEDIATRIC ) 12/27/2013 ROXANA NORRIS MD 327.23 OBSTRUCTIVE SLEEP APNEA (ADULT) (PEDIATRIC) 12/27/2013 HERACLIO MCBRIDE MD 327.23 OBSTRUCTIVE SLEEP APNEA (ADULT) (PEDIATRIC ) 08/04/2014 HERACLIO MCBRIDE MD N Ot 242.90 08/04/2014 HERACLIO MCBRIDE MD N Ot 733.90 08/04/2014 HERACLIO MCBRIDE MD N Ot V82.81 08/15/2014 HERACLIO MCBRIDE MD N Ot 242.90 08/15/2014 UVALDO MCBRIDE MDY N Ot 733.90 08/15/2014 UVALDO MCBRIDE MDY N Ot V82.81 08/15/2014 HERACLIO MCBRIDE MD N Ot 242.90 10/03/2014 HERACLIO MCBRIDE MD N 429.83 TAKOTSUBO SYNDROME 10/03/2014 ROXANA NORRIS MD 429.83 TAKOTSUBO SYNDROME 10/03/2014 HERACLIO MCBRIDE MD N 429.83 TAKOTSUBO SYNDROME 10/03/2014 KERA ALVES L Ot 250.80 10/03/2014 KERA ALVES L Ot 275.2 10/03/2014 KERA ALVES L Ot 276.8 10/03/2014 KERA ALVES L Ot 599.0 10/03/2014 KERA ALVES L Ot 780.79 10/03/2014 KERA ALVES L Ot V58.67 10/03/2014 KERA ALVES L Ot V58.69 10/13/2014 ROXANA NORRIS MD 410.90 MO, UNSPECIFIED 10/13/2014 ROXANA NORRIS MD 428.0 CONGESTIVE HEART FAILURE, UNSPECIFIED 10/13/2014 RAE BYRNE, HERACLIO N 410.90 MO, UNSPECIFIED 10/13/2014 RAE BYRNE, HERACLIO N 428.0 CONGESTIVE HEART FAILURE, UNSPECIFIED 10/25/2014 RAE BYRNE, HERACLIO N Ot 242.90 10/25/2014 RAE BYRNE, HERACLIO Napoles Ot 242.90 10/25/2014 RAE BYRNE, HERACLIO N Ot 733.90 10/25/2014 RAE BYRNE, HERACLIO [place] Ot V82.81 10/27/2014 BAER-DINORAH PA, LEANNE K Ot 272.4 10/27/2014 BAER-DINORAH PA, LEANNE K Ot 401.1 10/27/2014 BAER-DINORAH PA, LEANNE K Ot 410.90 10/27/2014 BAER-DINORAH PA, LEANNE K Ot 428.0 12/18/2014 BAER-DINORAH PA, LEANNE K Ot 272.4 12/18/2014 BAER-DINORAH PA, LEANNE K Ot 401.1 12/18/2014 BAER-DINORAH PA, LEANNE K Ot 410.90 12/18/2014 BAER-DINORAH PA, LEANNE K Ot 428.0 01/01/2015 BAER-DINORAH PA, LEANNE K Ot 272.4 01/01/2015 BAER-DINORAH PA, LEANNE K Ot 401.9 01/01/2015 BAER-DINORAH PA, LEANNE K Ot 429.83 01/10/2015 MAGO DELEON DO Ot 242.90 01/10/2015 BAER-DINORAH PA, LEANNE K Ot 272.4 01/10/2015 BAER-DINORAH PA, LEANNE K Ot 401.9 01/10/2015 BAER-DINORAH PA, LEANNE K Ot 429.83 01/15/2016 RAE BYRNE, HERACLIO [place] Ot G47.33 OBSTRUCTIVE SLEEP APNEA (ADULT) (PEDIATR 01/15/2016 RAE BYRNE, HERACLIO Napoles Ot G47.33 OBSTRUCTIVE SLEEP APNEA (ADULT) (PEDIATR 01/16/2016 RAE BYRNE, HERACLIO Napoles Ot G47.10 HYPERSOMNIA, UNSPECIFIED 01/16/2016 RAE BYRNE, HERACLIO Napoles Ot G47.33 OBSTRUCTIVE SLEEP APNEA (ADULT) (PEDIATR 01/16/2016 HERACLIO MCBRIDE MD Ot R06.83 SNORING 01/23/2016 HERACLIO MCBRIDE MD Ot G47.10 HYPERSOMNIA, UNSPECIFIED 01/23/2016 HERACLIO MCBRIDE MD Ot R06.83 SNORING Procedures Code Description [place] [address] ROUTINE VENIPUNCTURE 09/14/2013 20797 LIPID PANEL 09/14 95575 VITAMIN D I-25 DIHYDROXY 09/14/2013 79926 TSH 09/14/2013 33811 A1C (IN-HOUSE) 35693 ROUTINE VENIPUNCTURE 09/27/2013 18834 T4 FREE 2013 63350 T3 TOTAL 2013 16101 ROUTINE VENIPUNCTURE 12/27/2013 35368 A1C (IN-HOUSE) 92654 MICRO ALBUMIN-IN HOUSE 12/27/2013 15854 CMP 12/27/2013 51635 LIPID PANEL 12/27 56576 VITAMIN D 25-HYDROXY (D2,D3, TOTAL) 12/27/2013 76755 TSH 12/27/2013 66939 SLEEP STUDY ([facility]) 12/27/2013 82577 ROUTINE VENIPUNCTURE 05/24/2014 81764 T4 FREE 2013 06209 TSH 05/24/2014 64725 T3 TOTAL 2013 82710 BONE DENSITY, DEXA 05/24/2014 54807 THYROID IMAGING WITH UPTAKE 05/24/2014 09543 A1C (IN-HOUSE) 8313415 GFR CALC (RESULT ONLY) 05/24/2014 57112 CMP 05/24/2014 02677 ROUTINE VENIPUNCTURE 10/03/2014 24384 T4 FREE 2014 81005 TSH 10/03/2014 44784 T3 TOTAL 2014 Cardiolog Roxana Norris 10/03/2014 Endocrino Mago Deleon 10/03/2014 04393 A1C (IN-HOUSE) 43283 LIPID PANEL 10/03 06207 ECHO 2D 2014 Results Encounters ACCT No. Visit Date/Time Discharge Status Pt. Type Provider Facility Loc./Unit Complaint [id number] 10/13/2014 07:36:00 10/13/2014 23: 59:59 CLS Outpatient ROXANA NORRIS MD [id number] 10/03/2014 07:37:00 10/03/2014 23: 59:59 CLS Outpatient HERACLIO MCBRIDE MD [id number] 10/03/2014 07:37:00 10/03/2014 23: 59:59 CLS Outpatient HERACLIO MCBRIDE MD [id number] 05/24/2014 11:03:00 05/24/2014 23: 59:59 CLS Outpatient HERACLIO MCBRIDE MD [id number] 05/24/2014 11:03:00 05/24/2014 23: 59:59 CLS Outpatient HERACLIO MCBRIDE MD [id number] 12/27/2013 10:15:00 12/27/2013 23: 59:59 CLS Outpatient HERACLIO MCBRIDE MD [id number] 12/27/2013 10:15:00 12/27/2013 23: 59:59 CLS Outpatient HERACLIO MCBRIDE MD [id number] 09/27/2013 15:21:00 09/27/2013 23: 59:59 CLS Outpatient HERACLIO MCBRIDE MD [id number] 09/14/2013 09:09:00 09/14/2013 23: 59:59 CLS Outpatient HERACLIO MCBRIDE MD [id number] 06/14/2013 08:27:00 06/14/2013 23: 59:59 CLS Outpatient HERACLIO MCBRIDE MD
--- OUTSIDE RECORDS SUMMARY | 2017-01-15 17:11 | XMS REPORT ---
Author Author HERACLIO MCBRIDE [facility] eClinicalWorks Address Unknown Phone Unavailable Care Team Providers Care Ingredient Scaler Name Role Phone HERACLIO MCBRIDE Unavailable Allergies [...] Start Date End Date Status Dosage Hydrocodone-Acetaminophen [facility] [address]-44 10-325 MG September 14, 2014 take 1 tablet by Oral route every 6 hours as needed for pain PRN Results No Known Results Summary Purpose eClinicalWorks Submission
[2017-01-15 17:36] LABS: BASOPHILS # (AUTO) 0.1 10^3/uL (0.0-0.1); BASOPHILS % (AUTO) 1 % (0-10); EOSINOPHILS # (AUTO) 0.1 10^3/uL (0.0-0.3); EOSINOPHILS % (AUTO) 1 % (0-10); LYMPHOCYTES # (AUTO) 1.2 X 10^3 (1.0-4.0); LYMPHOCYTES % (AUTO) 13 % (12-44); MEAN CORPUSCULAR HEMOGLOBIN 32 PG (25-34); MEAN CORPUSCULAR HGB CONC 33 G/DL (32-36); MEAN CORPUSCULAR VOLUME 95 FL (80-99); MEAN PLATELET VOLUME 10.3 FL (7.4-10.4); MONOCYTES # (AUTO) 0.8 X 10^3 (0.0-1.0); MONOCYTES % (AUTO) 9 % (0-12); NEUTROPHILS # (AUTO) 7.4 X 10^3 (1.8-7.8); NEUTROPHILS % (AUTO) 78 % (42-75); PLATELET COUNT 254 10^3/uL (130-400); RED CELL DISTRIBUTION WIDTH 13.4 % (10.0-14.5); WHITE BLOOD COUNT 9.6 10^3/uL (4.3-11.0)
--- NOTE | 2017-01-15 17:40 | ED Respiratory ---
General Chief Complaint: Respiratory Problems Stated Complaint: SOA Nursing Triage Note: PT STATES CHEST PAIN EARLIER, SOB "PROBLEMS WITH BREATHING THIS MORNING." Source: patient, family Exam Limitations: no limitations History of Present Illness Time seen by provider: 17:35 Initial Comments The patient is a 66-year-old white female who presents with complaints of shortness of breath. Initial respiratory rate was reported at 50. Her son states that she has asthma. She is also stated to have had a myocardial infarct 3 years ago. She has not been seen by a local health support specialist. She states that she was sent to [place] was not happy about that. She does not know her ejection fraction. She states that she is not particularly physically active. She is also known to be a diabetic. She is a nonsmoker. Timing/Duration: this afternoon Prior Episodes/Possible Cause: occasional episodes Associated Symptoms: chest pain/soreness, shortness of breath Allergies and Home Medications Allergies Coded Allergies: erythromycin base (Unverified Allergy, Severe, RASH, 10/03/14) Home Medications Albuterol Sulfate 0.63 Mg/3 Ml Vial.neb, 1 EACH IH Q 4 - 6 HRS PRN PRN for SHORTNESS OF BREATH, (Reported) Albuterol Sulfate 1 Puff Puff, 2 PUFF IH, (Reported) MDI Alprazolam 0.5 Mg Tablet, 0.5 MG PO TID PRN for ANXIETY, (Reported) Aspirin 81 Mg Tablet.dr, 81 MG PO DAILY, (Reported) Calcium Carbonate/Vitamin D3 1 Each Tablet, 1 EACH PO DAILY, (Reported) Carvedilol 6.25 Mg Tablet, 6.25 MG PO BID, (Reported) Citalopram Hydrobromide 20 Mg Tablet, 20 MG PO DAILY, (Reported) Cranberry Extract 250 Mg Capsule, 250 MG PO DAILY, (Reported) Enalapril Maleate 20 Mg Tablet, 20 MG PO DAILY, (Reported) Furosemide 40 Mg Tablet, 40 MG PO DAILY, (Reported) Hydrocodone Bit/Acetaminophen 1 Tab Tablet, 1 TAB PO Q4H PRN for PAIN, (Reported ) Insulin Aspart 100 Unit/1 Ml Insuln.pen, 25 UNITS SQ BID, (Reported) Insulin Detemir 100 U/Ml Vial, 20 U SQ BID, (Reported) Magnesium Oxide 400 Mg Tablet, 400 MG PO BID, #10 Ref 0 Prescribed by: KERA BRAVO on 10/03/142040 Meloxicam 15 Mg Tablet, 15 MG PO DAILY, (Reported) Metformin Hcl 1,000 Mg Tablet, 1,000 MG PO BID WITH MEALS, (Reported) Montelukast Sodium 10 Mg Tablet, 10 MG PO HS, (Reported) Multivitamins W-Minerals 1 Each Tablet, 1 EACH PO DAILY, (Reported) Nitrofurantoin/Nitrofuran Mac 100 Mg Capsule, 1 EACH PO BID, #20 Ref 0 Prescribed by: KERA BRAVO on 10/03/142040 [place]-3 Acid Ethyl Esters 1 Gm Capsule, 2 GM PO BID, (Reported) [place]-3/Dha/Epa/Fish Oil 1 Each Capsule.dr, 2,000 MG PO BID, (Reported) Potassium Chloride 10 Meq Tab.prt.sr, 20 MEQ PO DAILY, (Reported) Sennosides/Docusate Sodium 1 Each Tablet, 1 EACH PO DAILY, (Reported) Simvastatin 40 Mg Tablet, 80 MG PO DAILY, (Reported) [Potassium Gluconate] , 595 MG PO DAILY, (Reported) Constitutional: see HPI EENTM: no symptoms reported Respiratory: short of breath, wheezing Cardiovascular: no symptoms reported Gastrointestinal: no symptoms reported Genitourinary: no symptoms reported Musculoskeletal: no symptoms reported Skin: no symptoms reported Psychiatric/Neurological: No Symptoms Reported Hematologic/Lymphatic: No Symptoms Reported Immunological/Allergic: no symptoms reported Past Izlyicl-Aidpfu-Uyqtyl Hx Patient Social History Alcohol Use: Denies Use Recreational Drug Use: No Smoking Status: Former Smoker Type Used: Cigarettes Recent Foreign Travel: No Contact w/Someone Who Travel: No Recent Infectious Disease Expo: No Recent Hopitalizations: No Immunizations Up To Date Tetanus Booster (TDap): Unknown Date of Influenza Vaccine: Jun 05, 2014 Seasonal Allergies Seasonal Allergies: Yes Surgeries HX Surgeries: Yes Surgeries: Gallbladder, Hysterectomy, Oophorectomy, Tubal Ligation Respiratory Hx Respiratory Disorders: Yes Respiratory Disorders: Asthma, Pneumonia Cardiovascular Hx Cardiac Disorders: Yes (HEART CATH) Cardiac Disorders: Heart Attack, Hypertension Genitourinary Hx Genitourinary Disorders: Yes Genitourinary Disorders: UTI-Chronic Gastrointestinal Hx Gastrointestinal Disorders: No Musculoskeletal Hx Musculoskeletal Disorders: Yes Musculoskeletal Disorders: Arthritis Endocrine Hx Endocrine Disorders: Yes Endocrine Disorders: Diabetes, Insulin dep Cancer Hx Cancer: No Psychosocial Hx Psychiatric Problems: Yes Behavioral Health Disorders: Anxiety, Depression Physical Exam Vital Signs Vital Sign - Last 12Hours 01/15/17 17:07 Temp 100.0 Pulse 50 Resp 20 Pulse Ox 97 O2 Delivery Nasal Cannula O2 Flow Rate 2.00 Capillary Refill : Less Than 3 Seconds General Appearance: mild distress, moderate distress HEENT: normal ENT inspection Neck: non-tender, full range of motion, supple, normal inspection, carotid bruit Respiratory: chest non-tender, lungs clear, no respiratory distress, no accessory muscle use, decreased breath sounds ( distant distant) Cardiovascular: normal peripheral pulses, regular rate, rhythm, no edema, no gallop, no JVD, no murmur Gastrointestinal: normal bowel sounds, non tender, soft, no organomegaly, no pulsatile mass, other (obese) Extremities: swelling (2+ pretibial edema) Neurologic/Psychiatric: chancellor II-XII nml as tested Lymphatic: no adenopathy, axilla node tender (R), axilla node tender (L), inguinal node tender (R), inguinal node tender (L) Progress/Results/Core Measures Results/Orders Lab Results Laboratory Tests Test 01/15/17 17:25 Range/Units White Blood Count 9.6 4.3-11.0 10^3/uL Red Blood Count 4.40 4.35-5.85 10^6/uL Hemoglobin 13.9 11.5-16.0 G/DL Hematocrit 42 35-52 % Mean Corpuscular Volume 95 80-99 FL Mean Corpuscular Hemoglobin 32 25-34 PG Mean Corpuscular Hemoglobin Concent 33 32-36 G/DL Red Cell Distribution Width 13.4 10.0-14.5 % Platelet Count 254 130-400 10^3/uL Mean Platelet Volume 10.3 7.4-10.4 FL Neutrophils (%) (Auto) 78 H 42-75 % Lymphocytes (%) (Auto) 13 12-44 % Monocytes (%) (Auto) 9 0-12 % Eosinophils (%) (Auto) 1 0-10 % Basophils (%) (Auto) 1 0-10 % Neutrophils # (Auto) 7.4 1.8-7.8 X 10^3 Lymphocytes # (Auto) 1.2 1.0-4.0 X 10^3 Monocytes # (Auto) 0.8 0.0-1.0 X 10^3 Eosinophils # (Auto) 0.1 0.0-0.3 10^3/uL Basophils # (Auto) 0.1 0.0-0.1 10^3/uL Sodium Level 137 135-145 MMOL/L Potassium Level 4.6 3.6-5.0 MMOL/L Chloride Level 101 98-107 MMOL/L Carbon Dioxide Level 25 21-32 MMOL/L Anion Gap 11 5-14 MMOL/L Blood Urea Nitrogen 23 H 7-18 MG/DL Creatinine 1.17 0.60-1.30 MG/DL Estimat Glomerular Filtration Rate 46 BUN/Creatinine Ratio 20 Glucose Level 129 H 70-105 MG/DL Calcium Level 9.0 8.5-10.1 MG/DL Total Bilirubin 0.6 0.1-1.0 MG/DL Aspartate Amino Transf (AST/SGOT) 16 5-34 U/L Alanine Aminotransferase (ALT/SGPT) 18 0-55 U/L Alkaline Phosphatase 93 40-136 U/L Troponin I < 0.30 <0.30 NG/ML Total Protein 7.2 6.4-8.2 GM/DL Albumin 3.7 3.2-4.5 GM/DL My Orders Orders - MARYSOL SNOW MD Cbc With Automated Diff (01/15/17 17:26) Comprehensive Metabolic Panel (01/15/17 17:26) Troponin I (01/15/17 17:26) Ekg Tracing (01/15/17 17:26) Chest 1 View, Ap/Pa Only (01/15/17 17:26) BNP (01/15/17 18:17) Vital Signs/I&O Vital Sign - Last 12Hours 01/15/17 17:07 Temp 100.0 Pulse 50 Resp 20 B/P (MAP) Pulse Ox 97 O2 Delivery Nasal Cannula O2 Flow Rate 2.00 Departure Impression Impression: Primary Impression: CHF Disposition: ADMITTED INPATIENT Condition: Stable/Unchanged Decision to Admit/Date: Jan 15, 2017 Time/Decision to Admit Time: 18:19 Departure-Patient Inst. Referrals: HERACLIO MCBRIDE MD (PCP/Family) Primary Care Physician MARYSOL SNOW MD Jan 15, 2017 17:40
[2017-01-15 17:55] LABS: ALANINE AMINOTRANSFERASE 18 U/L (0-55); ALBUMIN 3.7 GM/DL (3.2-4.5); ANION GAP 11 MMOL/L (5-14); ASPARTATE AMINO TRANSFERASE 16 U/L (5-34); BILIRUBIN,TOTAL 0.6 MG/DL (0.1-1.0); BLOOD UREA NITROGEN 23 MG/DL (7-18); BUN/CREATININE RATIO 20; CARBON DIOXIDE 25 MMOL/L (21-32); CHLORIDE 101 MMOL/L (98-107); CREATININE SERUM 1.17 MG/DL (0.60-1.30); GFR ESTIMATED 46; GLUCOSE 129 MG/DL (70-105); POTASSIUM 4.6 MMOL/L (3.6-5.0); SODIUM 137 MMOL/L (135-145); TOTAL PROTEIN 7.2 GM/DL (6.4-8.2)
[2017-01-15 18:01] LABS: TROPONIN I < 0.30 NG/ML (<0.30)
--- NOTE | 2017-01-15 18:05 | Diagnostic Imaging Report ---
INDICATION: Chest pain and short of breath. COMPARISON: Prior examination from 10/03/14. FINDINGS: There is cardiomegaly. There is some venous congestion. There is no pleural effusion or pneumothorax. The mediastinum is unremarkable. IMPRESSION: Cardiomegaly and mild central pulmonary venous congestion. Dictated by: Dictated on workstation # [id number]
--- OUTSIDE RECORDS SUMMARY | 2017-01-15 19:06 | XMS REPORT | Continuity of Care Document ---
Author Author [facility] Address Unknown Phone Unavailable Allergies Active Description Code Type Severity Reaction Onset Reported/Identified Relationship to Patient Clinical Status Yes Erythromycin Base Drug Allergy N/A N/A 06/14/2013 Yes amoxicillin [id number] Drug Allergy Unknown N/A 10/03/2014 Yes erythromycin base [id number] Drug Allergy Severe RASH 10/03/2014 Medications Problems [...] DEPRESSIVE DISORDER NOT ELSEWHERE CLASSIFIED 06/14/2013 HERACLIO CMBRIDE MD N 401.1 HYPERTENSION, BENIGN ESSENTIAL 06/14/2013 [...] N 268.9 VITAMIN D DEFICIENCY 09/14/2013 HERACLIO CMBRIDE MD N 268.9 VITAMIN D DEFICIENCY 09/14/2013 [...] Ot V58.69 10/13/2014 ROXANA NORRIS MD 410.90 MD, UNSPECIFIED 10/13/2014 ROXANA NORRIS MD 428.0 CONGESTIVE HEART FAILURE, UNSPECIFIED 10/13/2014 RAE BYRNE, HERACLIO N 410.90 MD, UNSPECIFIED 10/13/2014 RAE BYRNE, HERACLIO N 428.0 [...] 01/10/2015 MAGO DELEON DO Ot 242.90 01/10/2015 BAER-IDNORAH PA, LEANNE K Ot 272.4 01/10/2015 BAER-DINORAH [...] Procedures Code [place] [address] ROUTINE VENIPUNCTURE 09/14/2013 37726 LIPID PANEL 09/14 72781 VITAMIN D I-25 DIHYDROXY 09/14/2013 87378 TSH 09/14/2013 73698 A1C (IN-HOUSE) 74475 ROUTINE VENIPUNCTURE 09/27/2013 45281 T4 FREE 2013 64452 T3 TOTAL 2013 39051 ROUTINE VENIPUNCTURE 12/27/2013 97866 A1C (IN-HOUSE) 66707 MICRO ALBUMIN-IN HOUSE 12/27/2013 94372 CMP 12/27/2013 62036 LIPID PANEL 12/27 32721 VITAMIN D 25-HYDROXY (D2,D3, TOTAL) 12/27/2013 02192 TSH 12/27/2013 04199 SLEEP STUDY ([facility]- SLEEP STUDY) 12/27/2013 56855 ROUTINE VENIPUNCTURE 05/24/2014 25093 T4 FREE 2013 29262 TSH 05/24/2014 80712 T3 TOTAL 2013 88361 BONE DENSITY, DEXA 05/24/2014 83145 THYROID IMAGING WITH UPTAKE 05/24/2014 11984 A1C (IN-HOUSE) [id number] GFR CALC (RESULT ONLY) 05/24/2014 37836 CMP 05/24/2014 36270 ROUTINE VENIPUNCTURE 10/03/2014 83021 T4 FREE 2014 44944 TSH 10/03/2014 91495 T3 TOTAL 2014 Cardiolog Roxana Norris 10/03/2014 Endocrino Mago Deleon 10/03/2014 37623 A1C (IN-HOUSE) 24909 LIPID PANEL 10/03 58444 ECHO 2D 2014 Results Test Result Range Complete blood count (CBC) with automated white blood cell (WBC) differential - 01/15/17 17:25 Blood leukocytes automated count (number/volume) 9.6 10*3/ uL 4.3-11.0 Blood erythrocytes automated count (number/volume) 4.40 10*6 /uL 4.35-5.85 Venous blood hemoglobin measurement (mass/volume) 13.9 g/dL 11.5-16.0 Blood hematocrit (volume fraction) 42 % 35-52 Automated erythrocyte mean corpuscular volume 95 [foz_us] 80-99 Automated erythrocyte mean corpuscular hemoglobin (mass per erythrocyte) 32 pg 25-34 Automated erythrocyte mean corpuscular hemoglobin concentration measurement ( mass/volume) 33 g/dL 32-36 Automated erythrocyte distribution width ratio 13.4 % 10.0-14.5 Automated blood platelet count (count/volume) 254 10*3/uL 130-400 Automated blood platelet mean volume measurement 10.3 [foz_ us] 7.4-10.4 Automated blood neutrophils/100 leukocytes 78 % 42-75 Automated blood lymphocytes/100 leukocytes 13 % 12-44 Blood monocytes/100 leukocytes 9 % 0-12 Automated blood eosinophils/100 leukocytes 1 % 0-10 Automated blood basophils/100 leukocytes 1 % 0-10 Blood neutrophils automated count (number/volume) 7.4 10*3 1.8-7.8 Blood lymphocytes automated count (number/volume) 1.2 10*3 1.0-4.0 Blood monocytes automated count (number/volume) 0.8 10*3 0.0-1.0 Automated eosinophil count 0.1 10*3/uL 0.0-0.3 Automated blood basophil count (count/volume) 0.1 10*3/uL 0.0-0.1 Comprehensive metabolic panel - 01/15/17 17:25 Serum or plasma sodium measurement (moles/volume) 137 mmol/ L 135-145 Serum or plasma potassium measurement (moles/volume) 4.6 mmol/L 3.6-5.0 Serum or plasma chloride measurement (moles/volume) 101 mmol /L 98-107 Carbon dioxide 25 mmol/L 21-32 Serum or plasma anion gap determination (moles/volume) 11 mmol/L 5-14 Serum or plasma urea nitrogen measurement (mass/volume) 23 mg/dL 7-18 Serum or plasma creatinine measurement (mass/volume) 1.17 mg /dL 0.60-1.30 Serum or plasma urea nitrogen/creatinine mass ratio 20 NRG Serum or plasma creatinine measurement with calculation of estimated glomerular filtration rate 46 NRG Serum or plasma glucose measurement (mass/volume) 129 mg/dL 70-105 Serum or plasma calcium measurement (mass/volume) 9.0 mg/dL 8.5-10.1 Serum or plasma total bilirubin measurement (mass/volume) 0.6 mg/dL 0.1-1.0 Serum or plasma alkaline phosphatase measurement (enzymatic activity/volume) 93 U/L 40-136 Serum or plasma aspartate aminotransferase measurement (enzymatic activity/ volume) 16 U/L 5-34 Serum or plasma alanine aminotransferase measurement (enzymatic activity/volume ) 18 U/L 0-55 Serum or plasma protein measurement (mass/volume) 7.2 g/dL 6.4-8.2 Serum or plasma albumin measurement (mass/volume) 3.7 g/dL 3.2-4.5 Serum or plasma troponin i.cardiac measurement (mass/volume) - 01/15/17 17:25 Serum or plasma troponin i.cardiac measurement (mass/volume) < ng/mL <0.30 Serum or plasma lithium measurement (moles/volume) - 01/15/17 17:25 BNP level 389.0 pg/mL <100.0 Encounters ACCT No. Visit Date/Time Discharge Status Pt. Type Provider Facility Loc./Unit Complaint [id number] 10/13/2014 07:36:00 10/13/2014 23: 59:59 CLS Outpatient ROXANA NORRIS MD [id number] 10/03/2014 07:37:00 10/03/2014 23: 59:59 CLS Outpatient HERACLIO MCBRIDE MD N [id number] 10/03/2014 07:37:00 10/03/2014 23: 59:59 CLS Outpatient HERACLIO MCBRIDE MD [id number] 05/24/2014 11:03:00 05/24/2014 23: 59:59 CLS Outpatient HERACLIO MCBRIDE MD [id number] 05/24/2014 11:03:00 05/24/2014 23: 59:59 CLS Outpatient HERACLIO MCBRIDE MD [id number] 12/27/2013 10:15:00 12/27/2013 23: 59:59 CLS Outpatient HERACLIO MCBRIDE MD [id number] 12/27/2013 10:15:00 12/27/2013 23: 59:59 CLS Outpatient HEARCLIO MCBRIDE MD [id number] 09/27/2013 15:21:00 09/27/2013 23: 59:59 CLS Outpatient HERACLIO MCBRIDE MD [id number] 09/14/2013 09:09:00 09/14/2013 23: 59:59 CLS Outpatient HERACLIO MCBRIDE MD [id number] 06/14/2013 08:27:00 06/14/2013 23: 59:59 CLS Outpatient HERACLIO MCBRIDE MD
[2017-01-15 19:30] VITALS: BP 102/58
[2017-01-15] MEDS ORDERED: FUROSEMIDE 40 MG/4 ML INJ (LASIX) IV NR (19:34)
[2017-01-15] MEDS ORDERED: CATHETER FLUSH 10 ML SYR IV PRN (19:45)
[2017-01-15 19:48] LABS: BILIRUBIN,URINE NEGATIVE (NEGATIVE); KETONES,URINE NEGATIVE (NEGATIVE); LEUKOCYTE ESTERASE ,URINE 1+ (NEGATIVE); NITRITE,URINE NEGATIVE (NEGATIVE); PH,URINE 6.5 (5-9); PROTEIN,URINE NEGATIVE (NEGATIVE); UROBILINOGEN,URINE NORMAL (NORMAL)
[2017-01-15 20:04] LABS: WBC,URINE 0-2 /HPF
[2017-01-15] MEDS: CATHETER FLUSH 10 ML SYR IV SCH (21:13)
[2017-01-15] MEDS ORDERED: inSUlin (REGULAR) HUMAN 1 UNIT/0.01 ML (CHARGE PER UNIT) ONE (21:32)
[2017-01-15] MEDS ORDERED: inSUlin DETERMIR 1 UNIT/0.01 ML (LEVEMIR) CHARGE PER UNIT SQ ONE (22:26)
[2017-01-16] VITALS (7 sets, daily range): BP systolic 107–147; BP diastolic 56–79
[2017-01-16 05:22] LABS: CALCIUM 8.8 MG/DL (8.5-10.1); CREATININE SERUM 1.12 MG/DL (0.60-1.30); POTASSIUM 3.9 MMOL/L (3.6-5.0)
[2017-01-16] MEDS: LEVOTHYROXINE 25 MCG (LEVOTHROID) TAB PO SCH (06:14)
[2017-01-16] MEDS: CATHETER FLUSH 10 ML SYR IV SCH ×3 (06:14→22:50)
[2017-01-16] MEDS: inSUlin (REGULAR) HUMAN 1 UNIT/0.01 ML (CHARGE PER UNIT) SC SCH ×4 (06:14→22:35)
[2017-01-16] MEDS ORDERED: FUROSEMIDE 40 MG/4 ML INJ (LASIX) IV SCH (07:00)
[2017-01-16] MEDS: inSUlin DETERMIR 1 UNIT/0.01 ML (LEVEMIR) CHARGE PER UNIT SQ SCH ×2 (10:39→22:44)
[2017-01-16] MEDS ORDERED: VITA1TAB17 PO (11:08)
[2017-01-16] MEDS ORDERED: ENAL20TA PO (11:08)
[2017-01-16] MEDS ORDERED: ALBU2.5V4 IH (11:08)
[2017-01-16] MEDS ORDERED: MONT10TA24 PO (11:08)
[2017-01-16] MEDS ORDERED: FURO40TA4 PO (11:08)
[2017-01-16] MEDS ORDERED: CINNAMON PO (11:08)
[2017-01-16] MEDS ORDERED: INSU100I29 SQ (11:08)
[2017-01-16] MEDS ORDERED: UBID30CA9 PO (11:08)
[2017-01-16] MEDS ORDERED: CALC625T14 PO (11:08)
[2017-01-16] MEDS ORDERED: CARV6.252 PO (11:08)
[2017-01-16] MEDS ORDERED: LEVO125T6 PO (11:08)
[2017-01-16] MEDS ORDERED: CITA40TA11 PO (11:08)
[2017-01-16] MEDS ORDERED: INSU100I14 SQ (11:08)
[2017-01-16] MEDS ORDERED: PREG50CA2 PO (11:08)
[2017-01-16] MEDS ORDERED: ATOR80TA76 PO (11:08)
[2017-01-16] MEDS ORDERED: POTA10TA36 PO (11:08)
[2017-01-16 11:16] LABS: BASOPHILS % (AUTO) 0 % (0-10); EOSINOPHILS % (AUTO) 0 % (0-10); LYMPHOCYTES # (AUTO) 1.1 X 10^3 (1.0-4.0); LYMPHOCYTES % (AUTO) 9 % (12-44); MEAN CORPUSCULAR HEMOGLOBIN 32 PG (25-34); MEAN CORPUSCULAR HGB CONC 33 G/DL (32-36); MEAN CORPUSCULAR VOLUME 95 FL (80-99); MEAN PLATELET VOLUME 10.4 FL (7.4-10.4); MONOCYTES % (AUTO) 9 % (0-12); NEUTROPHILS % (AUTO) 83 % (42-75); PLATELET COUNT 240 10^3/uL (130-400); RED BLOOD COUNT 4.16 10^6/uL (4.35-5.85); RED CELL DISTRIBUTION WIDTH 13.1 % (10.0-14.5); WHITE BLOOD COUNT 12.1 10^3/uL (4.3-11.0)
[2017-01-16 11:39] LABS: BAND NEUTROPHILS 1 %; LYMPHOCYTES % (MANUAL) 7 %; NEUTROPHILS % (MANUAL) 87 %
[2017-01-16 11:40] LABS: BASOPHILS % (MANUAL) 0 %; EOSINOPHILS % (MANUAL) 0 %
[2017-01-16 11:41] LABS: CALCIUM 8.7 MG/DL (8.5-10.1); CREATININE SERUM 1.14 MG/DL (0.60-1.30)
[2017-01-16] MEDS: inSUlin ASPART (NovoLOG) 1 UNIT/0.01 ML (CHARGE PER UNIT) SC SCH ×2 (13:00→17:34)
[2017-01-16] MEDS: PREGABALIN 50 MG (LYRICA) CAP PO SCH ×2 (13:00→22:43)
--- NOTE | 2017-01-16 16:13 | Consultation-Cardiology ---
HPI-Cardiology Cardiology Consultation: Date of Consultation 01/16/17 Date of Admission Attending Physician Yessi Vigil MD Admitting Physician Valerie Blancas MD Consulting Physician Karla SÁNCHEZ MD HPI: Time Seen by Provider: 16:13 Chief Complaint: Shortness of breath This is a 66-year-old lady with history of hypertension. She presents with shortness of breath and lower extremity swelling. Worsening for the last one month. She does take by mouth Lasix at home. She was admitted yesterday and received IV Lasix 40 mg with significant improvement in lower extremity swelling as well as shortness of breath. She denies any chest pain. Review of Systems-Cardiology Review of Systems Constitutional: No As described under HPI, No no symptoms reported, No chills, No fever, No lightheadedness, No malaise, No tiredness, No weight loss, No weight gain, No other Eyes: No As described under HPI, No no symptoms reported, No blindness, No blurred vision, No contact lenses, No drainage, No decreased acuity, No foreign body sensation, No glasses, No inflammation, No pain, No photophobia, No previous injury, No shadows, No tunnel vision, No other, No vision change Ears/Nose/Throat: No As described under HPI, No no symptoms reported, No chronic hearing loss, No epistaxis, No ear discharge, No ear pain, No loose teeth, No mouth pain, No mouth swelling, No nasal drainage, No nose pain, No recent hearing loss, No throat pain, No throat swelling, No ulcerations, No other Respiratory: shortness of breath Cardiovascular: edema Gastrointestinal: No no symptoms reported, No As described under HPI, No abdomen distended, No abdominal pain, No blood streaked bowels, No constipation , No diarrhea, No difficulty swallowing, No nausea, No poor appetite, No poor fluid intake, No rectal bleeding, No vomiting, No other, No nausea/vomiting/ diarrhea, No stool coloration changes Genitourinary: No no symptoms reported, No As described under HPI, No burning, No dysuria, No discharge, No frequency, No flank pain, No hematuria, No incontinence, No pain, No urgency, No other, No urine frequency changes, No urine coloration changes Musculoskeletal: No no symptoms reported, No As describe under HPI, No back pain, No gout, No joint pain, No joint swelling, No muscle pain, No muscle stiffness, No neck pain, No other Skin: No no symptoms reported, No As described under HPI, No change in color, No change in hair/nails, No dryness, No lesions, No lumps, No rash, No other, No skin related problems, No ulcerations, No rash on exposed areas, No ulcerations on exposed areas Psychiatric/Neurological: No As described under HPI, No anxiety, No depression , No emotional problems, No focal weakness, No headache, No no symptoms reported , No numbness, No other, No pre-existing deficit, No seizure, No syncope, No tingling, No tremors, No weakness Hematologic: No no symptoms reported, No As described under HPI, No anemia, No blood clots, No easy bleeding, No easy bruising, No swollen glands, No other, No bleeding abnormalities JUK-Ynlpqo-Uyapya Hx Patient Social History Alcohol Use: Denies Use Recreational Drug Use: No Smoking Status: Former Smoker Type Used: Cigarettes Recent Foreign Travel: No Recent Infectious Disease Expo: No Physical Abuse Screen: No Sexual Abuse: No Immunizations Up To Date Tetanus Booster (TDap): Unknown Date of Pneumonia Vaccine: Sep 15, 2016 Date of Influenza Vaccine: Jun 05, 2014 Past Medical History PMH As described under Assessment. Family Medical History Family History: CVA 19 FATHER, Onset:Unknown FH: breast cancer 19 FATHER, Onset:Unknown FH: colon cancer 19 MOTHER, Onset:Unknown FHx: irritable bowel syndrome 19 MOTHER, Onset:Unknown Kidney stone 19 FATHER, Onset:Unknown Allergies and Home Medications Allergies Coded Allergies: erythromycin base (Unverified Allergy, Severe, RASH, 10/03/14) Home Medications Albuterol Sulfate 2.5 Mg/3 Ml Vial.neb, 2.5 MG IH Q6H PRN for SHORTNESS OF BREATH, (Reported) Aspirin 81 Mg Tablet.dr, 81 MG PO DAILY, (Reported) Atorvastatin Calcium 80 Mg Tablet, 80 MG PO HS, (Reported) LAST FILLED 08/26/16 #90 Calcium Carbonate/Vitamin D3 1 Each Tablet, 1 TAB PO DAILY, (Reported) Calcium Polycarbophil 625 Mg Tablet, 625 MG PO DAILY, (Reported) Carvedilol 6.25 Mg Tablet, 6.25 MG PO BID, (Reported) Citalopram Hydrobromide 40 Mg Tablet, 40 MG PO DAILY, (Reported) Enalapril Maleate 20 Mg Tablet, 20 MG PO DAILY, (Reported) Furosemide 40 Mg Tablet, 40 MG PO DAILY, (Reported) Insulin Aspart 300 Units/3 Ml Solution, 20 UNITS SQ AC, (Reported) Insulin Detemir 100 Unit/1 Ml Insuln.pen, 20 UNITS SQ BID, (Reported) Levothyroxine Sodium 125 Mcg Tablet, 125 MCG PO DAILY, (Reported) Montelukast Sodium 10 Mg Tablet, 10 MG PO HS, (Reported) Multivitamins W-Minerals 1 Each Tablet, 1 TAB PO DAILY, (Reported) [place]-3/Dha/Epa/Fish Oil 1 Each Capsule.dr, 2,000 MG PO DAILY, (Reported) TAKES 2 (1,000 MG) CAPSULES Potassium Chloride 10 Meq Tab.er.prt, 20 MEQ PO DAILY, (Reported) Pregabalin 50 Mg Capsule, 50 MG PO TID, (Reported) Sennosides/Docusate Sodium 1 Each Tablet, 1 TAB PO DAILY, (Reported) Ubidecarenone 30 Mg Capsule, 30 MG PO DAILY, (Reported) Vitamin B Complex 1 Each Tablet, 1 TAB PO DAILY, (Reported) [Cinnamon 1000] , 2,000 MG PO DAILY, (Reported) Physical Exam-Cardiology Physical Exam Vital Signs/I&O Vital Sign - Last 12Hours 01/16/17 01/16/17 01/16/17 01/16/17 07:00 08:45 09:00 12:50 Temp 96.6 96.9 Pulse 62 57 62 Resp 18 18 B/P (MAP) 128/79 132/76 Pulse Ox 96 96 96 O2 Delivery Nasal Cannula Nasal Cannula Nasal Cannula O2 Flow Rate 3.00 3.00 3.00 01/16/17 01/16/17 13:00 16:25 Pulse 58 O2 Delivery Nasal Cannula O2 Flow Rate 2.00 Intake and Output 01/16/17 00:00 Intake Total 740 ml Output Total 900 ml Balance -160 ml Capillary Refill : Less Than 3 Seconds Constitutional: No appears stated age, No AAO x 3, No apparent distress, No PERRL, No well-developed, No well-nourished, No other HEENT: No PERRL, No normal ENT inspection, No TMs normal, No pharynx normal, No scleral icterus (R), No scleral icterus (L), No pale conjunctivae (R), No pale conjunctivae (L), No photophobia, No TM abnormal (R), No TM abnormal (L), No pharyngeal erythema, No tonsillar exudate, No other, No discharge, No EOMI, No hearing is well preserved, No hard of hearing, No oral hygience is good, No ulceration, No xanthelasmas are seen Neck: No non-tender, No full range of motion, No supple, No normal inspection, No carotid bruit, No limited range of motion, No lymphadenopathy (R), No lymphadenopathy (L), No tender lateral, No tender midline, No thyromegaly, No other, No carotid pulses are 2 + bilaterally, No with good upstrokes Respiratory: No accessory muscle use, No respiratory distress, No chest tender , No chest expansion is symmetric, No chest is bilaterally symmetric, No lungs clear to percussion, No lungs clear to auscultation, No crackles, No rhonchi, No rales, No stridor, No wheezing, No pleural rub, No other Cardiovascular: No regular rate-rhythm, No irregularly irregular, No extra beats, No parasternal heave is noted, No JVD, edema, No bradycardia, No tachycardia, No point of maximal impulse, No cardiac thrills are palpable, No S1 and S2, No gallop/S3, No gallop/S4, No diastolic murmur, No systolic murmur, No friction rub, No click, No other Gastrointestinal: No tender, No soft, No round, No distended, No pulsatile mass , No organomegaly, No guarding, No rebound, No tenderness, No hernia, No mass, No audible bowel sounds, No abnormal bowel sounds, No abdominal bruits, No spleenomegaly, No other Rectal: deferred Extremities: No normal range of motion, No non-tender, No normal inspection, pedal edema, No calf tenderness, No normal capillary refill, No pelvis stable, No calf tenderness, No inflammation, No pedal edema, No slow capillary refill, No swelling, No other, No abrasion, No clubbing, No cyanosis, No ecchymosis, No laceration, No no lower extremity edema bilateral, No significant edema, No tenderness, No wound Neurologic/Psychiatric: No coal or ore controller II-XII nml as tested, No no motor/sensory deficits, No alert, No normal mood/affect, No oriented x 3, No abnormal cerebellar tests, No abnormal coal or ore controller II-XII, No abnormal gait, No aphasia, No EOM palsy, No facial droop, No motor weakness, No sensory deficit, No depressed affect, No disoriented x 3, No other, No grossly intact, No power is 5/5 both on sides Skin: No normal color, No warm/dry, No cyanosis, No cool, No diaphoresis, No damp, No ecchymosis, No jaundice, No mottled, No pallor, No rash, No tattoos/ piercings, No ulcerations, No rash on exposed areas, No ulcerations on exposed areas, No other Lymphatic: no adenopathy, axilla node tender (R), axilla node tender (L), inguinal node tender (R), inguinal node tender (L) Data Review Labs Laboratory Tests 01/15/17 17:25: White Blood Count 9.6, Red Blood Count 4.40, Hemoglobin 13.9, Hematocrit 42, Mean Corpuscular Volume 95, Mean Corpuscular Hemoglobin 32, Mean Corpuscular Hemoglobin Concent 33, Red Cell Distribution Width 13.4, Platelet Count 254, Mean Platelet Volume 10.3, Neutrophils (%) (Auto) 78H, Lymphocytes (%) (Auto) 13 , Monocytes (%) (Auto) 9, Eosinophils (%) (Auto) 1, Basophils (%) (Auto) 1, Neutrophils # (Auto) 7.4, Lymphocytes # (Auto) 1.2, Monocytes # (Auto) 0.8, Eosinophils # (Auto) 0.1, Basophils # (Auto) 0.1, Sodium Level 137, Potassium Level 4.6, Chloride Level 101, Carbon Dioxide Level 25, Anion Gap 11, Blood Urea Nitrogen 23H, Creatinine 1.17, Estimat Glomerular Filtration Rate 46, BUN/ Creatinine Ratio 20, Glucose Level 129H, Calcium Level 9.0, Total Bilirubin 0.6 , Aspartate Amino Transf (AST/SGOT) 16, Alanine Aminotransferase (ALT/SGPT) 18, Alkaline Phosphatase 93, Troponin I < 0.30, B-Type Natriuretic Peptide 389.0H, Total Protein 7.2, Albumin 3.7 01/15/17 18:25: Urine Color YELLOW, Urine Clarity CLEAR, Urine pH 6.5, Urine Specific [place] 1.010L, Urine Protein NEGATIVE, Urine Glucose (UA) NEGATIVE, Urine Ketones NEGATIVE, Urine Nitrite NEGATIVE, Urine Bilirubin NEGATIVE, Urine Urobilinogen NORMAL, Urine Leukocyte Esterase 1+H, Urine RBC (Auto) NEGATIVE, Urine RBC NONE , Urine WBC 0-2, Urine Squamous Epithelial Cells 5-10, Urine Crystals NONE, Urine Bacteria TRACE, Urine Casts NONE, Urine Mucus NEGATIVE, Urine Culture Indicated NO 01/15/17 21:26: Glucometer 227H 01/15/17 23:18: Troponin I < 0.30 01/16/17 04:37: Sodium Level 137, Potassium Level 3.9, Chloride Level 101, Carbon Dioxide Level 22, Anion Gap 14, Blood Urea Nitrogen 29H, Creatinine 1.12, Estimat Glomerular Filtration Rate 48, BUN/Creatinine Ratio 26, Glucose Level 246H, Calcium Level 8.8 01/16/17 10:26: Glucometer 362H 01/16/17 11:07: Sodium Level 135, Potassium Level 4.0, Chloride Level 99, Carbon Dioxide Level 26, Anion Gap 10, Blood Urea Nitrogen 30H, Creatinine 1.14, Estimat Glomerular Filtration Rate 47, BUN/Creatinine Ratio 26, Glucose Level 348H, Calcium Level 8.7, White Blood Count 12.1H, Red Blood Count 4.16L, Hemoglobin 13.1, Hematocrit 39, Mean Corpuscular Volume 95, Mean Corpuscular Hemoglobin 32, Mean Corpuscular Hemoglobin Concent 33, Red Cell Distribution Width 13.1, Platelet Count 240, Mean Platelet Volume 10.4, Neutrophils (%) (Auto) 83H, Lymphocytes (% ) (Auto) 9L, Monocytes (%) (Auto) 9, Eosinophils (%) (Auto) 0, Basophils (%) ( Auto) 0, Neutrophils # (Auto) 10.0H, Lymphocytes # (Auto) 1.1, Monocytes # (Auto ) 1.0, Eosinophils # (Auto) 0.0, Basophils # (Auto) 0.0, Neutrophils % (Manual) 87, Lymphocytes % (Manual) 7, Monocytes % (Manual) 5, Eosinophils % (Manual) 0, Basophils % (Manual) 0, Band Neutrophils 1, Blood Morphology Comment NORMAL 01/16/17 14:06: Glucometer 267H A/P-Cardiology Assessment/Admission Diagnosis Shortness of breath, lower extremity swelling, Acute on chronic Diastolic heart failure Plan Hypertensive heart disease with acute on chronic diastolic heart failure. Agree with IV Lasix 40 mg every day. On discharge she should go home on 80 mg Lasix in the morning. Potassium supplementation as well. The patient is already on SUZY inhibitor and beta juanis. Vitals are well controlled. Salt restriction is recommended. She'll follow-up with Dr. Norris as an outpatient. Thank you for your consultation. Please call me if you have any questions. Katelyn Sánchez MD, FACP, FACC, FSCAI, FHRS, CCDS Interventional Cardiology Cardiac Electrophysiology Vascular Medicine and Endovascular Interventions Clinical Quality Measures DVT/VTE Risk/Contraindication: Risk Factor Score Per Nursin RFS Level Per Nursing on Admit: 4+=Very High Karla SÁNCHEZ MD Jan 16, 2017 4:13 pm
[2017-01-16] MEDS: RT-ALBUTEROL SULF 2.5 MG/3 ML PRE-MIX VIAL IH PRN (18:17)
[2017-01-16] MEDS ORDERED: inSUlin (REGULAR) HUMAN 1 UNIT/0.01 ML (CHARGE PER UNIT) SC SCH (19:30)
[2017-01-16] MEDS ORDERED: inSUlin DETERMIR 1 UNIT/0.01 ML (LEVEMIR) CHARGE PER UNIT SQ SCH (21:00)
--- NOTE | 2017-01-16 21:06 | History & Physicial (CHS) ---
HPI History of Present Illness: 66yo woman presented to clinic yesterday with complaints of increasing swelling and fatigue for the past week. She states her legs were much more swollen than usual despite taking her usual regimen of medicaiton. Slight cough, no fever. No chest pain, some SOB when moving around. In clinic, she was found to have a RA O2 sat of 90% and a left sided pleural effusion, so she was sent for evaluation in the ER where it was determined that she did have volume overload. Source: patient, family Exam Limitations: no limitations Date seen by provider: Jan 16, 2017 Time Seen by Provider: 11:30 Attending Physician Yessi Vigil MD PCP Heraclio Blancas MD Consult Date of Admission Jan 16, 2017 at 12:04 pm Home Medications Home Medications Reviewed patient Home Medication Reconciliation Form Allergies Coded Allergies: erythromycin base (Unverified Allergy, Severe, RASH, 10/03/14) ZZA-Cwtuog-Gzacgx Hx Patient Social History Alcohol Use: Denies Use Recreational Drug Use: No Smoking Status: Former Smoker Type Used: Cigarettes Recent Foreign Travel: No Contact w/other who traveled: No Recent Hopitalizations: No Recent Infectious Disease Expo: No Physical Abuse Screen: No Sexual Abuse: No Immunizations Up To Date Tetanus Booster (TDap): Unknown Date of Pneumonia Vaccine: Sep 15, 2016 Date of Influenza Vaccine: Jun 05, 2014 Family Medical History Family History: CVA 19 FATHER, Onset:Unknown FH: breast cancer 19 FATHER, Onset:Unknown FH: colon cancer 19 MOTHER, Onset:Unknown FHx: irritable bowel syndrome 19 MOTHER, Onset:Unknown Kidney stone 19 FATHER, Onset:Unknown Review of Systems (CHC) Constitutional: no symptoms reported All Other Systems Reviewed Negative Unless Noted: Yes (Negative excepted noted.) Reviewed Test Results Reviewed Test Results Lab Laboratory Tests Test 01/15/17 17:25 01/15/17 18:25 01/15/17 21:26 01/15/17 23:18 Range/Units White Blood Count 9.6 4.3-11.0 10^3/uL Red Blood Count 4.40 4.35-5.85 10^6/uL Hemoglobin 13.9 11.5-16.0 G/DL Hematocrit 42 35-52 % Mean Corpuscular Volume 95 80-99 FL Mean Corpuscular Hemoglobin 32 25-34 PG Mean Corpuscular Hemoglobin Concent 33 32-36 G/DL Red Cell Distribution Width 13.4 10.0-14.5 % Platelet Count 254 130-400 10^3/uL Mean Platelet Volume 10.3 7.4-10.4 FL Neutrophils (%) (Auto) 78 H 42-75 % Lymphocytes (%) (Auto) 13 12-44 % Monocytes (%) (Auto) 9 0-12 % Eosinophils (%) (Auto) 1 0-10 % Basophils (%) (Auto) 1 0-10 % Neutrophils # (Auto) 7.4 1.8-7.8 X 10^3 Lymphocytes # (Auto) 1.2 1.0-4.0 X 10^3 Monocytes # (Auto) 0.8 0.0-1.0 X 10^3 Eosinophils # (Auto) 0.1 0.0-0.3 10^3/uL Basophils # (Auto) 0.1 0.0-0.1 10^3/uL Sodium Level 137 135-145 MMOL/L Potassium Level 4.6 3.6-5.0 MMOL/L Chloride Level 101 98-107 MMOL/L Carbon Dioxide Level 25 21-32 MMOL/L Anion Gap 11 5-14 MMOL/L Blood Urea Nitrogen 23 H 7-18 MG/DL Creatinine 1.17 0.60-1.30 MG/DL Estimat Glomerular Filtration Rate 46 BUN/Creatinine Ratio 20 Glucose Level 129 H 70-105 MG/DL Calcium Level 9.0 8.5-10.1 MG/DL Total Bilirubin 0.6 0.1-1.0 MG/DL Aspartate Amino Transf (AST/SGOT) 16 5-34 U/L Alanine Aminotransferase (ALT/SGPT) 18 0-55 U/L Alkaline Phosphatase 93 40-136 U/L Troponin I < 0.30 < 0.30 <0.30 NG/ML B-Type Natriuretic Peptide 389.0 H <100.0 PG/ML Total Protein 7.2 6.4-8.2 GM/DL Albumin 3.7 3.2-4.5 GM/DL Urine Color YELLOW Urine Clarity CLEAR Urine pH 6.5 5-9 Urine Specific [place] 1.010 L 1.016-1.022 Urine Protein NEGATIVE NEGATIVE Urine Glucose (UA) NEGATIVE NEGATIVE Urine Ketones NEGATIVE NEGATIVE Urine Nitrite NEGATIVE NEGATIVE Urine Bilirubin NEGATIVE NEGATIVE Urine Urobilinogen NORMAL NORMAL MG/DL Urine Leukocyte Esterase 1+ H NEGATIVE Urine RBC (Auto) NEGATIVE NEGATIVE Urine RBC NONE /HPF Urine WBC 0-2 /HPF Urine Squamous Epithelial Cells 5-10 /HPF Urine Crystals NONE /LPF Urine Bacteria TRACE /HPF Urine Casts NONE /LPF Urine Mucus NEGATIVE /LPF Urine Culture Indicated NO Glucometer 227 H 70-110 MG/DL Test 01/16/17 04:37 01/16/17 10:26 01/16/17 11:07 01/16/17 14:06 Range/Units Sodium Level 137 135 135-145 MMOL/L Potassium Level 3.9 4.0 3.6-5.0 MMOL/L Chloride Level 101 99 98-107 MMOL/L Carbon Dioxide Level 22 26 21-32 MMOL/L Anion Gap 14 10 5-14 MMOL/L Blood Urea Nitrogen 29 H 30 H 7-18 MG/DL Creatinine 1.12 1.14 0.60-1.30 MG/DL Estimat Glomerular Filtration Rate 48 47 BUN/Creatinine Ratio 26 26 Glucose Level 246 H 348 H 70-105 MG/DL Calcium Level 8.8 8.7 8.5-10.1 MG/DL Glucometer 362 H 267 H 70-110 MG/DL White Blood Count 12.1 H 4.3-11.0 10^3/uL Red Blood Count 4.16 L 4.35-5.85 10^6/uL Hemoglobin 13.1 11.5-16.0 G/DL Hematocrit 39 35-52 % Mean Corpuscular Volume 95 80-99 FL Mean Corpuscular Hemoglobin 32 25-34 PG Mean Corpuscular Hemoglobin Concent 33 32-36 G/DL Red Cell Distribution Width 13.1 10.0-14.5 % Platelet Count 240 130-400 10^3/uL Mean Platelet Volume 10.4 7.4-10.4 FL Neutrophils (%) (Auto) 83 H 42-75 % Lymphocytes (%) (Auto) 9 L 12-44 % Monocytes (%) (Auto) 9 0-12 % Eosinophils (%) (Auto) 0 0-10 % Basophils (%) (Auto) 0 0-10 % Neutrophils # (Auto) 10.0 H 1.8-7.8 X 10^3 Lymphocytes # (Auto) 1.1 1.0-4.0 X 10^3 Monocytes # (Auto) 1.0 0.0-1.0 X 10^3 Eosinophils # (Auto) 0.0 0.0-0.3 10^3/uL Basophils # (Auto) 0.0 0.0-0.1 10^3/uL Neutrophils % (Manual) 87 % Lymphocytes % (Manual) 7 % Monocytes % (Manual) 5 % Eosinophils % (Manual) 0 % Basophils % (Manual) 0 % Band Neutrophils 1 % Blood Morphology Comment NORMAL Radiology Date of Exam: 01/15/17 CHEST 1 VIEW, AP/PA ONLY INDICATION: Chest pain and short of breath. COMPARISON: Prior examination from 10/03/14. FINDINGS: There is cardiomegaly. There is some venous congestion. There is no pleural effusion or pneumothorax. The mediastinum is unremarkable. IMPRESSION: Cardiomegaly and mild central pulmonary venous congestion. Physical Exam-(CHC) Physical Exam Vital Signs VS - Last 72 Hours, by Label 01/15/17 01/15/17 01/15/17 01/15/17 17:07 19:16 19:30 19:30 Temp 100.0 99.6 98.8 Pulse 50 69 63 Resp 20 20 14 B/P (MAP) 102/58 Pulse Ox 97 97 97 97 O2 Delivery Nasal Cannula Nasal Cannula Nasal Cannula Nasal Cannula O2 Flow Rate 2.00 2.00 3.00 3.00 01/15/17 01/15/17 01/16/17 01/16/17 21:19 22:11 00:00 01:00 Temp 97.2 Pulse 65 62 57 Resp 18 B/P (MAP) 121/59 Pulse Ox 95 O2 Delivery Nasal Cannula Nasal Cannula O2 Flow Rate 2.00 2.00 01/16/17 01/16/17 01/16/17 01/16/17 04:50 07:00 08:45 09:00 Temp 96.7 96.6 Pulse 61 62 57 Resp 20 18 B/P (MAP) 107/56 128/79 Pulse Ox 96 96 96 O2 Delivery Nasal Cannula Nasal Cannula Nasal Cannula O2 Flow Rate 3.00 3.00 3.00 01/16/17 01/16/17 01/16/17 01/16/17 12:50 13:00 15:45 16:25 Temp 96.9 97.0 Pulse 62 58 52 Resp 18 20 B/P (MAP) 132/76 123/58 Pulse Ox 96 94 O2 Delivery Nasal Cannula Nasal Cannula Nasal Cannula O2 Flow Rate 3.00 3.00 2.00 01/16/17 01/16/17 18:17 19:00 Pulse 60 O2 Delivery Nasal Cannula O2 Flow Rate 2.00 Capillary Refill : Less Than 3 Seconds General Appearance: WD/WN, no apparent distress HEENT: PERRL/EOMI, normal ENT inspection, pharynx normal Neck: non-tender, full range of motion, supple, normal inspection Respiratory: lungs clear, normal breath sounds, no respiratory distress, no accessory muscle use Cardiovascular: regular rate, rhythm, no edema, no gallop, no JVD, no murmur Gastrointestinal: normal bowel sounds, non tender, soft, no organomegaly Extremities: normal range of motion, non-tender, normal inspection, no pedal edema, no calf tenderness, normal capillary refill 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 states she wants to stay one additional day which is reasonable as she is still on oxygen this morning as I round. she does nto have any edema this morning, which is encouraging. will plan for dc tomorrow. already on appropriate medical regimen - acei, BB. echo results pending. Dr Sánchez kindly consulted and recommended lasix 80mg po daily and potassium supplementation at discharge. TYPE 2 DIABETES MELLITUS MCFP INSULIN USE ADM - restart home insulin regimen, 1800kcal diet. HTN ADM - restart home regimen. DVT PROPH: encourage ambulation, SCDs while in bed Diagnosis/Problems: Clinical Quality Measures DVT/VTE Risk/Contraindication: Risk Factor Score Per Nursin RFS Level Per Nursing on Admit: 4+=Very High Copy Copies To 1: HERACLIO BLANCAS MD, JULIE A MD Jan 16, 2017 9:06 pm
[2017-01-16] MEDS ORDERED: CHLORASEPTIC SPRAY 177 ML LIQUID MC ONE (22:20)
[2017-01-16] MEDS: MONTELUKAST 10 MG (SINGULAIR) TAB PO SCH (22:43)
[2017-01-16] MEDS: ATORVASTATIN 80 MG (LIPITOR) TABLET PO SCH (22:43)
[2017-01-16] MEDS: CHLORASEPTIC SPRAY 177 ML LIQUID MC PRN (22:46)
[2017-01-16] MEDS: CARVEDILOL 6.25 MG (COREG) TAB PO SCH (22:48)
[2017-01-17] VITALS (8 sets, daily range): BP systolic 82–132; BP diastolic 48–80
[2017-01-17] MEDS: inSUlin (REGULAR) HUMAN 1 UNIT/0.01 ML (CHARGE PER UNIT) SC SCH ×4 (06:17→19:23)
[2017-01-17] MEDS: MULTIVIT W/MINERALS TAB (THERAGRAN M) PO SCH (06:56)
[2017-01-17] MEDS: OMEGA 3 (FISH OIL) 1000 MG CAP PO SCH (06:56)
[2017-01-17] MEDS: KCL 20 MEQ TAB (K-DUR) PO SCH (06:56)
[2017-01-17] MEDS: CALCIUM CARB + VIT D 600 MG (CALCARB + D) TAB PO SCH (06:57)
[2017-01-17] MEDS: LEVOTHYROXINE 125 MCG (LEVOTHROID) TABLET PO SCH (06:57)
[2017-01-17] MEDS: LEVOTHYROXINE 25 MCG (LEVOTHROID) TAB PO SCH (06:58)
[2017-01-17] MEDS: CATHETER FLUSH 10 ML SYR IV SCH ×3 (06:58→22:03)
[2017-01-17 07:09] LABS: MEAN PLATELET VOLUME 10.8 FL (7.4-10.4); RED BLOOD COUNT 4.39 10^6/uL (4.35-5.85); RED CELL DISTRIBUTION WIDTH 13.4 % (10.0-14.5); WHITE BLOOD COUNT 12.3 10^3/uL (4.3-11.0)
[2017-01-17 07:33] LABS: CALCIUM 8.7 MG/DL (8.5-10.1); CREATININE SERUM 0.95 MG/DL (0.60-1.30); POTASSIUM 3.6 MMOL/L (3.6-5.0)
[2017-01-17] MEDS: CHLORASEPTIC SPRAY 177 ML LIQUID MC PRN (08:09)
[2017-01-17] MEDS: inSUlin ASPART (NovoLOG) 1 UNIT/0.01 ML (CHARGE PER UNIT) SC SCH ×3 (08:16→16:00)
[2017-01-17] MEDS ORDERED: NON-FORMULARY MEDICATION 1 EA EA (Vitamin B Complex 1 TAB) PO SCH (09:00)
[2017-01-17] MEDS ORDERED: UBIDECARENONE 30 MG PO SCH (09:00)
[2017-01-17] MEDS: SENNA W/DOCUSATE (SENOKOT S) TABLET PO SCH (09:20)
[2017-01-17] MEDS: ENALAPRIL 10 MG (VASOTEC) TAB PO SCH (09:21)
[2017-01-17] MEDS: ASPIRIN E.C. 81 MG (ECOTRIN) TAB PO SCH (09:21)
[2017-01-17] MEDS: FUROSEMIDE 40 MG/4 ML INJ (LASIX) IVP SCH (09:23)
[2017-01-17] MEDS: inSUlin DETERMIR 1 UNIT/0.01 ML (LEVEMIR) CHARGE PER UNIT SQ SCH ×2 (09:23→20:34)
[2017-01-17] MEDS: PREGABALIN 50 MG (LYRICA) CAP PO SCH ×3 (09:27→20:34)
[2017-01-17] MEDS: CAL. POLYCARBOPHIL 625 MG (FIBERCON) TAB PO SCH (09:32)
[2017-01-17] MEDS: CARVEDILOL 6.25 MG (COREG) TAB PO SCH (09:33)
--- NOTE | 2017-01-17 12:05 | Cardiology Progress Note ---
Cardiology SOAP Progress Note Subjective: Complained of fever and cough overnight Objective: I&O/Vital Signs Vital Sign - Last 12Hours 01/17/17 01/17/17 01/17/17 01/17/17 01:00 04:00 07:00 08:00 Temp 98.6 100.5 Pulse 55 68 71 68 Resp 18 22 B/P (MAP) 131/79 132/80 Pulse Ox 96 98 O2 Delivery Nasal Cannula Nasal Cannula O2 Flow Rate 3.00 3.00 01/17/17 09:00 O2 Delivery Nasal Cannula O2 Flow Rate 3.00 Intake and Output 01/17/17 00:00 Intake Total 1850 ml Output Total 1565 ml Balance 285 ml Weight (Pounds): 224 Weight (Ounces): 9.0 Weight (Calculated Kilograms): 101.112196 Constitutional: No appears stated age, No AAO x 3, No apparent distress, No PERRL, No well-developed, No well-nourished, No other Respiratory: No accessory muscle use, No respiratory distress, No chest tender , No chest expansion is symmetric, No chest is bilaterally symmetric, No lungs clear to percussion, No lungs clear to auscultation, No crackles, No rhonchi, No rales, No stridor, No wheezing, No pleural rub, No other Cardiovascular: No regular rate-rhythm, No irregularly irregular, No extra beats, No parasternal heave is noted, No JVD, edema, No bradycardia, No tachycardia, No point of maximal impulse, No cardiac thrills are palpable, No S1 and S2, No gallop/S3, No gallop/S4, No diastolic murmur, No systolic murmur, No friction rub, No click, No other Gastrointestional: No tender, No soft, No round, No distended, No pulsatile mass, No organomegaly, No guarding, No rebound, No tenderness, No hernia, No mass, No audible bowel sounds, No abnormal bowel sounds, No abdominal bruits, No spleenomegaly, No other Extremities: No normal range of motion, No non-tender, No normal inspection, pedal edema, No calf tenderness, No normal capillary refill, No pelvis stable, No calf tenderness, No inflammation, No pedal edema, No slow capillary refill, No swelling, No other, No abrasion, No clubbing, No cyanosis, No ecchymosis, No laceration, No no lower extremity edema bilateral, No significant edema, No tenderness, No wound Neurologic/Psychiatric: 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, No no motor/sensory deficits, No alert, No normal mood/affect, No oriented x 3, No abnormal cerebellar tests, No abnormal 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, No abnormal gait, No aphasia, No EOM palsy, No facial droop, No motor weakness, No sensory deficit, No depressed affect, No disoriented x 3, No other, No grossly intact, No power is 5/5 both on sides Skin: No normal color, No warm/dry, No cyanosis, No cool, No diaphoresis, No damp, No ecchymosis, No jaundice, No mottled, No pallor, No rash, No tattoos/ piercings, No ulcerations, No rash on exposed areas, No ulcerations on exposed areas, No other Results/Procedures: Labs Laboratory Tests 01/16/17 14:06: Glucometer 267H 01/16/17 22:01: Glucometer 107 01/17/17 06:10: Glucometer 92 01/17/17 06:11: White Blood Count 12.3H, Red Blood Count 4.39, Hemoglobin 13.7, Hematocrit 42, Mean Corpuscular Volume 95, Mean Corpuscular Hemoglobin 31, Mean Corpuscular Hemoglobin Concent 33, Red Cell Distribution Width 13.4, Platelet Count 245, Mean Platelet Volume 10.8H, Sodium Level 140, Potassium Level 3.6, Chloride Level 101, Carbon Dioxide Level 27, Anion Gap 12, Blood Urea Nitrogen 27H, Creatinine 0.95, Estimat Glomerular Filtration Rate 58, BUN/Creatinine Ratio 28 , Glucose Level 88, Calcium Level 8.7 01/17/17 10:00: Glucometer 153H A/P: Assessment/Dx: Shortness of breath, lower extremity swelling, Acute on chronic Diastolic heart failure Cough and fever overnight Plan: Hypertensive heart disease with acute on chronic diastolic heart failure - much improved. Agree with IV Lasix 40 mg every day. On discharge she should go home on 80 mg Lasix in the morning. Potassium supplementation as well. The patient is already on SUZY inhibitor and beta juanis. Vitals are well controlled. Salt restriction is recommended. Cough and fever overnight: Deferred to primary team for further management. She'll follow-up with Dr. Norris as an outpatient. Thank you for your consultation. Please call me if you have any questions. Katelyn Sánchez MD, FACP, FACC, FSCAI, FHRS, CCDS Interventional Cardiology Cardiac Electrophysiology Vascular Medicine and Endovascular Interventions Karla SÁNCHEZ MD Jan 17, 2017 12:05 pm
--- NOTE | 2017-01-17 15:39 | Progress Note (SOAP) ---
Subjective Subjective/Events-last exam Complains of cough and sore throat overnight. States that overall she is feeling better. Walked with PT this AM and states she is still having shortness of breath with ambulation. Denies chest pain, palpitations, N/V or abd pain. Review of Systems Time Seen by Provider: 10:35 General: No Chills HEENT: Head Aches Pulmonary: Dyspnea, Cough Cardiovascular: No: Chest Pain, Palpitations Gastrointestinal: No: Abdominal Pain, Nausea, Vomiting Objective Exam Last Set of Vital Signs Vital Signs Date Time Temp Pulse Resp B/P (MAP) Pulse Ox O2 Delivery O2 Flow Rate FiO2 01/17/17 13:11 Nasal Cannula 2.00 01/17/17 13:00 57 01/17/17 12:30 98.2 14 113/68 98 Capillary Refill : Less Than 3 Seconds I&O Intake and Output 01/17/17 00:00 Intake Total 2150 ml Output Total 2315 ml Balance -165 ml Intake Oral 2150 ml Output Urine Total 2315 ml # Voids 3 # Bowel Movements 1 General: Alert, Oriented X3, Cooperative, No Acute Distress, Other (Obese adult female) HEENT: Other (dry MM) Lungs: Clear to Auscultation, Normal Air Movement Heart: Regular Rate, No Murmurs Abdomen: Normal Bowel Sounds, Soft, No Tenderness Extremities: Other (1+ pitting edema, no tenderness to palpation) Neuro: Normal Speech, Sensation Intact Results/Procedures Lab Laboratory Tests 01/16/17 22:01: Glucometer 107 01/17/17 06:10: Glucometer 92 01/17/17 06:11: White Blood Count 12.3H, Red Blood Count 4.39, Hemoglobin 13.7, Hematocrit 42, Mean Corpuscular Volume 95, Mean Corpuscular Hemoglobin 31, Mean Corpuscular Hemoglobin Concent 33, Red Cell Distribution Width 13.4, Platelet Count 245, Mean Platelet Volume 10.8H, Sodium Level 140, Potassium Level 3.6, Chloride Level 101, Carbon Dioxide Level 27, Anion Gap 12, Blood Urea Nitrogen 27H, Creatinine 0.95, Estimat Glomerular Filtration Rate 58, BUN/Creatinine Ratio 28 , Glucose Level 88, Calcium Level 8.7 01/17/17 10:00: Glucometer 153H 01/17/17 14:28: Glucometer 53*L 01/17/17 15:15: Glucometer 126H Radiology Date of Exam: 01/15/17 CHEST 1 VIEW, AP/PA ONLY INDICATION: Chest pain and short of breath. COMPARISON: Prior examination from 10/03/14. FINDINGS: There is cardiomegaly. There is some venous congestion. There is no pleural effusion or pneumothorax. The mediastinum is unremarkable. IMPRESSION: Cardiomegaly and mild central pulmonary venous congestion. Assessment/Plan Assessment/Plan Plan ACUTE ON CHRONIC DIASTOLIC HEART FAILURE ADM - pt has responded well to lasix 40mg IV. states she wants to stay one additional day which is reasonable as she is still on oxygen this morning as I round. she does nto have any edema this morning, which is encouraging. will plan for dc tomorrow. already on appropriate medical regimen - acei, BB. echo results pending. Dr Sánchez kindly consulted and recommended lasix 80mg po daily and potassium supplementation at discharge. 01/17 - Not feeling well overall and is concerned about going home too soon, Tolerating diet, remains on oxygen, titrate off today, encouraged patient to ambulated in the halls at least 3 times today TYPE 2 DIABETES MELLITUS INTERMEDIATE INSULIN USE ADM - restart home insulin regimen, 1800kcal diet. 01/17 - Will get A1c, patient does not seem to be eating much and had a low blood sugar today, will continue to monitor closely HTN ADM - restart home regimen. 01/17 - BP well controlled Sore Throat 01/17 - Likely from oxgyen, will get humidified air and titrate patient off oxygen today, Throat spray in room DVT PROPH: encourage ambulation, SCDs while in bed FEN: Low salt, DM diet Dispo: Plan for home tomorrow Diagnosis/Problems: Clinical Quality Measures DVT/VTE Risk/Contraindication: Risk Factor Score Per Nursin RFS Level Per Nursing on Admit: 4+=Very High PILAR PATTERSON MD Jan 17, 2017 15:39
[2017-01-17] MEDS ORDERED: NS IV 500 ML 500 ML IV ONE (16:30)
[2017-01-17] MEDS: ATORVASTATIN 80 MG (LIPITOR) TABLET PO SCH (20:34)
[2017-01-17] MEDS: MONTELUKAST 10 MG (SINGULAIR) TAB PO SCH (20:34)
[2017-01-18] VITALS (7 sets, daily range): BP systolic 109–128; BP diastolic 58–88
[2017-01-18] MEDS: CHLORASEPTIC SPRAY 177 ML LIQUID MC PRN ×3 (00:45→23:41)
[2017-01-18] MEDS: ACETAMINOPHEN 325 MG TABLET/CAPLET (TYLENOL) PO PRN ×4 (04:34→23:39)
[2017-01-18 05:16] LABS: ALBUMIN 3.3 GM/DL (3.2-4.5); BILIRUBIN,TOTAL 0.5 MG/DL (0.1-1.0); CALCIUM 8.7 MG/DL (8.5-10.1); CREATININE SERUM 0.96 MG/DL (0.60-1.30); POTASSIUM 4.3 MMOL/L (3.6-5.0); TOTAL PROTEIN 6.7 GM/DL (6.4-8.2)
[2017-01-18] MEDS: inSUlin (REGULAR) HUMAN 1 UNIT/0.01 ML (CHARGE PER UNIT) SC SCH ×4 (05:27→20:13)
[2017-01-18] MEDS: CATHETER FLUSH 10 ML SYR IV SCH ×3 (05:27→20:41)
[2017-01-18] MEDS: MULTIVIT W/MINERALS TAB (THERAGRAN M) PO SCH (05:36)
[2017-01-18] MEDS: OMEGA 3 (FISH OIL) 1000 MG CAP PO SCH (05:37)
[2017-01-18] MEDS: CALCIUM CARB + VIT D 600 MG (CALCARB + D) TAB PO SCH (05:37)
[2017-01-18] MEDS: LEVOTHYROXINE 125 MCG (LEVOTHROID) TABLET PO SCH (05:37)
[2017-01-18] MEDS: KCL 20 MEQ TAB (K-DUR) PO SCH (05:37)
[2017-01-18] MEDS: ASPIRIN E.C. 81 MG (ECOTRIN) TAB PO SCH (10:04)
[2017-01-18] MEDS: PREGABALIN 50 MG (LYRICA) CAP PO SCH ×3 (10:04→20:40)
[2017-01-18] MEDS: CARVEDILOL 6.25 MG (COREG) TAB PO SCH ×2 (10:04→20:40)
[2017-01-18] MEDS: SENNA W/DOCUSATE (SENOKOT S) TABLET PO SCH (10:05)
[2017-01-18] MEDS: ENALAPRIL 10 MG (VASOTEC) TAB PO SCH (10:05)
[2017-01-18] MEDS: CAL. POLYCARBOPHIL 625 MG (FIBERCON) TAB PO SCH (10:06)
[2017-01-18] MEDS: inSUlin DETERMIR 1 UNIT/0.01 ML (LEVEMIR) CHARGE PER UNIT SQ SCH ×2 (10:06→21:57)
[2017-01-18] MEDS: FUROSEMIDE 40 MG/4 ML INJ (LASIX) IVP SCH (10:06)
[2017-01-18] MEDS: inSUlin ASPART (NovoLOG) 1 UNIT/0.01 ML (CHARGE PER UNIT) SC SCH ×2 (12:56→17:28)
--- NOTE | 2017-01-18 15:16 | Cardiology Progress Note ---
Cardiology SOAP Progress Note Subjective: complains of being feverish and cough Objective: I&O/Vital Signs Vital Sign - Last 12Hours 01/18/17 01/18/17 01/18/17 01/18/17 04:00 07:00 08:00 10:45 Temp 98.4 98.7 98.4 Pulse 72 60 69 Resp 20 20 B/P (MAP) 123/82 128/88 Pulse Ox 95 95 O2 Delivery Nasal Cannula Room Air O2 Flow Rate 2.00 01/18/17 01/18/17 12:00 13:00 Temp 98.4 Pulse 69 61 Resp 20 B/P (MAP) 109/69 Pulse Ox 93 O2 Delivery Room Air Intake and Output 01/18/17 00:00 Intake Total 1340 ml Output Total 1900 ml Balance -560 ml Weight (Pounds): 224 Weight (Ounces): 9.0 Weight (Calculated Kilograms): 101.550688 Constitutional: No appears stated age, No AAO x 3, No apparent distress, No PERRL, No well-developed, No well-nourished, No other Respiratory: No accessory muscle use, No respiratory distress, No chest tender , No chest expansion is symmetric, No chest is bilaterally symmetric, No lungs clear to percussion, No lungs clear to auscultation, No crackles, No rhonchi, No rales, No stridor, No wheezing, No pleural rub, No other Cardiovascular: No regular rate-rhythm, No irregularly irregular, No extra beats, No parasternal heave is noted, No JVD, edema, No bradycardia, No tachycardia, No point of maximal impulse, No cardiac thrills are palpable, No S1 and S2, No gallop/S3, No gallop/S4, No diastolic murmur, No systolic murmur, No friction rub, No click, No other Gastrointestional: No tender, No soft, No round, No distended, No pulsatile mass, No organomegaly, No guarding, No rebound, No tenderness, No hernia, No mass, No audible bowel sounds, No abnormal bowel sounds, No abdominal bruits, No spleenomegaly, No other Extremities: No normal range of motion, No non-tender, No normal inspection, pedal edema, No calf tenderness, No normal capillary refill, No pelvis stable, No calf tenderness, No inflammation, No pedal edema, No slow capillary refill, No swelling, No other, No abrasion, No clubbing, No cyanosis, No ecchymosis, No laceration, No no lower extremity edema bilateral, No significant edema, No tenderness, No wound Neurologic/Psychiatric: 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, No no motor/sensory deficits, No alert, No normal mood/affect, No oriented x 3, No abnormal cerebellar tests, 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, No abnormal gait, No aphasia, No EOM palsy, No facial droop, No motor weakness, No sensory deficit, No depressed affect, No disoriented x 3, No other, No grossly intact, No power is 5/5 both on sides Skin: No normal color, No warm/dry, No cyanosis, No cool, No diaphoresis, No damp, No ecchymosis, No jaundice, No mottled, No pallor, No rash, No tattoos/ piercings, No ulcerations, No rash on exposed areas, No ulcerations on exposed areas, No other Results/Procedures: Labs Laboratory Tests 01/17/17 18:37: Glucometer 282H 01/17/17 20:19: Glucometer 255H 01/18/17 04:18: Sodium Level 136, Potassium Level 4.3, Chloride Level 100, Carbon Dioxide Level 25, Anion Gap 11, Blood Urea Nitrogen 21H, Creatinine 0.96, Estimat Glomerular Filtration Rate 58, BUN/Creatinine Ratio 22, Glucose Level 149H, Hemoglobin A1c 5.8, Calcium Level 8.7, Total Bilirubin 0.5, Aspartate Amino Transf (AST/SGOT) 14, Alanine Aminotransferase (ALT/SGPT) 16, Alkaline Phosphatase 79, Total Protein 6.7, Albumin 3.3 Microbiology 01/17/17 Urine Culture - Preliminary, Resulted A/P: Assessment/Dx: Shortness of breath, lower extremity swelling, Acute on chronic Diastolic heart failure Cough and fever overnight Plan: Hypertensive heart disease with acute on chronic diastolic heart failure - much improved. Agree with IV Lasix 40 mg every day. we can transition to by mouth Lasix. She can go home on 80 mg of Lasix for the first week with potassium supplementation. Hopefully after one week she can go back to her regular dose of 40 mg a day. The patient is already on SUZY inhibitor and beta juanis. Vitals are well controlled. Salt restriction is recommended. Cough and fever overnight: Deferred to primary team for further management. She'll follow-up with Dr. Norris as an outpatient. Thank you for your consultation. Please call me if you have any questions. Katelyn Sánchez MD, FACP, FACC, FSCAI, FHRS, CCDS Interventional Cardiology Cardiac Electrophysiology Vascular Medicine and Endovascular Interventions Karla SÁNCHEZ MD Jan 18, 2017 3:16 pm
--- NOTE | 2017-01-18 16:24 | Progress Note (SOAP) ---
Subjective Subjective/Events-last exam Patient still feels weak and worried about going home as everyone at home is sick. Breathing has improved. Fluid status stable. Tolerating PO diet. Ambulating to bathroom with assistance. States that she has 1 stair in her house. Sore throat has improved but she has lost her voice this AM. Review of Systems Date Seen by Provider: Jan 18, 2017 Time Seen by Provider: 10:05 General: No Chills, Fatigue Pulmonary: Cough Cardiovascular: No: Chest Pain Gastrointestinal: No: Abdominal Pain, Nausea, Vomiting Genitourinary: No Dysuria Neurological: Weakness Objective Exam Last Set of Vital Signs Vital Signs Date Time Temp Pulse Resp B/P (MAP) Pulse Ox O2 Delivery O2 Flow Rate FiO2 01/18/17 13:00 61 01/18/17 12:00 98.4 20 109/69 93 Room Air 01/18/17 09:00 2.00 Capillary Refill : Less Than 3 Seconds I&O Intake and Output 01/18/17 00:00 Intake Total 1640 ml Output Total 2700 ml Balance -1060 ml Intake Oral 1640 ml Output Urine Total 2700 ml # Voids 5 # Bowel Movements 1 General: Alert, Oriented X3, Cooperative, No Acute Distress Lungs: Clear to Auscultation, Normal Air Movement Heart: Regular Rate, No Murmurs Abdomen: Normal Bowel Sounds, Soft, No Tenderness Extremities: No Tenderness/Swelling, Other (trace edema present bilaterally) Neuro: Normal Speech, Strength at 5/5 X4 Ext, Sensation Intact, Cranial Nerves 3-12 NL Psych/Mental Status: Mental Status NL, Mood NL Results/Procedures Lab Laboratory Tests 01/17/17 18:37: Glucometer 282H 01/17/17 20:19: Glucometer 255H 01/18/17 04:18: Sodium Level 136, Potassium Level 4.3, Chloride Level 100, Carbon Dioxide Level 25, Anion Gap 11, Blood Urea Nitrogen 21H, Creatinine 0.96, Estimat Glomerular Filtration Rate 58, BUN/Creatinine Ratio 22, Glucose Level 149H, Hemoglobin A1c 5.8, Calcium Level 8.7, Total Bilirubin 0.5, Aspartate Amino Transf (AST/SGOT) 14, Alanine Aminotransferase (ALT/SGPT) 16, Alkaline Phosphatase 79, Total Protein 6.7, Albumin 3.3 Microbiology 01/17/17 Urine Culture - Preliminary, Resulted Radiology Date of Exam: 01/15/17 CHEST 1 VIEW, AP/PA ONLY INDICATION: Chest pain and short of breath. COMPARISON: Prior examination from 10/03/14. FINDINGS: There is cardiomegaly. There is some venous congestion. There is no pleural effusion or pneumothorax. The mediastinum is unremarkable. IMPRESSION: Cardiomegaly and mild central pulmonary venous congestion. Assessment/Plan Assessment/Plan Plan ACUTE ON CHRONIC DIASTOLIC HEART FAILURE ADM - pt has responded well to lasix 40mg IV. states she wants to stay one additional day which is reasonable as she is still on oxygen this morning as I round. she does nto have any edema this morning, which is encouraging. will plan for dc tomorrow. already on appropriate medical regimen - acei, BB. echo results pending. Dr Sánchez kindly consulted and recommended lasix 80mg po daily and potassium supplementation at discharge. 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 01/17 - Will get A1c, patient does not seem to be eating much and had a low blood sugar today, will continue to monitor closely HTN ADM - restart home regimen. 01/17 - BP well controlled Sore Throat 01/17 - Likely from oxgyen, will get humidified air and titrate patient off oxygen today, Throat spray in room 01/18 - improved some but now lost her voice, likely due to oxygen or viral in nature Debility 01/18 - PT to see patient in AM, evaluate for need for walker at home DVT PROPH: encourage ambulation, SCDs while in bed FEN: Low salt, DM diet Dispo: Plan for home tomorrow Diagnosis/Problems: Clinical Quality Measures DVT/VTE Risk/Contraindication: Risk Factor Score Per Nursin RFS Level Per Nursing on Admit: 4+=Very High PILAR PATTERSON MD Jan 18, 2017 16:24
[2017-01-18] MEDS: ATORVASTATIN 80 MG (LIPITOR) TABLET PO SCH (20:40)
[2017-01-18] MEDS: MONTELUKAST 10 MG (SINGULAIR) TAB PO SCH (20:41)
[2017-01-19] MEDS: RT-ALBUTEROL SULF 2.5 MG/3 ML PRE-MIX VIAL IH PRN (01:53)
[2017-01-19 04:55] VITALS: BP 148/70
[2017-01-19] MEDS: inSUlin (REGULAR) HUMAN 1 UNIT/0.01 ML (CHARGE PER UNIT) SC SCH ×2 (06:03→10:30)
[2017-01-19] MEDS: CATHETER FLUSH 10 ML SYR IV SCH (06:03)
[2017-01-19] MEDS: MULTIVIT W/MINERALS TAB (THERAGRAN M) PO SCH (06:04)
[2017-01-19] MEDS: CALCIUM CARB + VIT D 600 MG (CALCARB + D) TAB PO SCH (06:04)
[2017-01-19] MEDS: OMEGA 3 (FISH OIL) 1000 MG CAP PO SCH (06:04)
[2017-01-19] MEDS: LEVOTHYROXINE 125 MCG (LEVOTHROID) TABLET PO SCH (06:04)
[2017-01-19] MEDS: ACETAMINOPHEN 325 MG TABLET/CAPLET (TYLENOL) PO PRN (06:04)
[2017-01-19] MEDS: KCL 20 MEQ TAB (K-DUR) PO SCH (06:04)
[2017-01-19 06:18] LABS: ANION GAP 11 MMOL/L (5-14); BLOOD UREA NITROGEN 23 MG/DL (7-18); BUN/CREATININE RATIO 25; CALCIUM 8.4 MG/DL (8.5-10.1); CARBON DIOXIDE 27 MMOL/L (21-32); CHLORIDE 98 MMOL/L (98-107); CREATININE SERUM 0.91 MG/DL (0.60-1.30); GFR ESTIMATED > 60; GLUCOSE 135 MG/DL (70-105); POTASSIUM 4.2 MMOL/L (3.6-5.0); SODIUM 136 MMOL/L (135-145)
[2017-01-19] MEDS: FUROSEMIDE 40 MG/4 ML INJ (LASIX) IVP SCH (08:30)
[2017-01-19] MEDS: ENALAPRIL 10 MG (VASOTEC) TAB PO SCH (08:30)
[2017-01-19] MEDS: CARVEDILOL 6.25 MG (COREG) TAB PO SCH (08:30)
[2017-01-19] MEDS: ASPIRIN E.C. 81 MG (ECOTRIN) TAB PO SCH (08:30)
[2017-01-19] MEDS: PREGABALIN 50 MG (LYRICA) CAP PO SCH ×2 (08:30→13:30)
[2017-01-19] MEDS: inSUlin ASPART (NovoLOG) 1 UNIT/0.01 ML (CHARGE PER UNIT) SC SCH ×2 (08:31→13:30)
[2017-01-19] MEDS: inSUlin DETERMIR 1 UNIT/0.01 ML (LEVEMIR) CHARGE PER UNIT SQ SCH (08:31)
[2017-01-19] MEDS: CAL. POLYCARBOPHIL 625 MG (FIBERCON) TAB PO SCH (08:32)
[2017-01-19] MEDS: SENNA W/DOCUSATE (SENOKOT S) TABLET PO SCH (08:33)
[2017-01-19 08:39] VITALS: BP 122/79
--- NOTE | 2017-01-19 09:25 | Physical Therapy Evaluation ---
PT Evaluation-General Medical Diagnosis Admission Date Jan 16, 2017 at 12:04 Medical Diagnosis: CHF Onset Date: Jan 16, 2017 Therapy Diagnosis Therapy Diagnosis: debility Height/Weight Height (Feet): 5 Height (Inches): 0.00 Weight (Pounds): 225 Weight (Ounces): 9.0 Precautions Precautions/Isolations: Fall Prevention, Standard Precautions Referral Physician: Kaden Reason for Referral: Evaluation/Treatment Medical History Pertinent Medical History: DM, HTN, [place] Additional Medical History obesity Current History increase SOA at home with family; inactive PLOF per patient report Reviewed History: Yes Social History Home: Single Level Current Living Status: Children Entry Into Home: Stairs With Railing PT Steps Into Home: 3 Prior/Core FIM Prior Level of Function Functional Early Measure 0=Not Assessed/NA 4=Minimal Assistance 1=Total Assistance 5=Supervision or Setup 2=Maximal Assistance 6=Modified Early 3=Moderate Assistance 7=Complete Early Bed Mobility: 6 Transfers (B,C,W/C) (FIM): 6 Gait: 6 uses cane PRN at home PLOF PT Evaluation-Current Subjective Patient agrees to PT. Pain Numeric Pain Scale: 0-No Pain Location: No Pain Reported Objective Patient Orientation: Normal For Age Problem Solving: Good Attachments: Oxygen ROM/Strength ROM Lower Extremities bilateral LE WNL Strenght Lower Extremities bilateral LE WNL Integumentary/Posture Integumentary refer to nursing notes Bowel Incontinence: No Bladder Incontinence: No Posture WNL Neuromuscular (Tone, Coordination, Reflexes) grossly intact Sensory Vision: Wears Glasses Hearing: Functional Sensation Right Lower Extremit: Impaired Sensation Left Lower Extremity: Impaired Transfers Functional Early Measure 0=Not Assessed/NA 4=Minimal Assistance 1=Total Assistance 5=Supervision or Setup 2=Maximal Assistance 6=Modified Early 3=Moderate Assistance 7=Complete Early Transfers (B, C, W/C) (FIM): 5 Scootin Rollin Supine to/from Sit: 5 Sit to/from Stand: 5 Gait Mode of Locomotion: Walk Anticipated Mode of Locomotion: Walk Gait (FIM): 5 Distance (FIM): 3=150 ft Distance: 150' Gait Level of Assist: 5 Gait Assistive Device: FWW Comments/Gait Description Patient is safe and functional with FWW Balance Sitting Static: Normal Sitting Dynamic: Normal Standing Static: Normal Standing Dynamic: Normal Assessment/Needs 66 y.o. female, will benefit from short term skilled PT to address functional mobility with use of assistive device. Per patient, she is inactive PLOF, however, reports she desires to be out in community. From a PT stand point, patient would benefit from 4WW to allow increase in independence in community with ability to rest PRN with use of 4WW. Rehab Potential: Good PT Senior Care Goals Senior Care Goals PT Senior Care Goals Time Frame: Jan 30, 2017 Transfers (B,C,W/C) (FIM): 6 Gait (FIM): 6 Gait distance (FIM): 3=150 ft Gait Level of Assist: 6 Gait Assistive Device: Walker 4 Wheeled, FWW PT Plan Treatment/Plan Treatment Plan: Continue Plan of Care Treatment Plan: Education, Functional Activity Maxi, Functional Strength, Gait , Safety, Therapeutic Exercise, Transfers Treatment Duration: Jan 30, 2017 Frequency: 6 times per week Estimated Hrs Per Day: .25 hour per day Patient and/or Family Agrees t: Yes Discharge Recommendations Equpiment Recommendations-D/C: Other, Please Explain (4WW) Time/GCodes Time In: 842 Time Out: 857 Total Billed Treatment Time: 15 Total Billed Treatment 1 visit EVLowC 15 min G Codes Necessary: No KERRI GERARD PT Jan 19, 2017 09:25
--- NOTE | 2017-01-19 11:08 | Discharge Summary ---
Diagnosis/Chief Complaint Date of Admission Jan 16, 2017 at 12:04 Date of Discharge January 19, 2017 Admission Diagnosis Admission Diagnosis Acute on Chronic Diastolic CHF with preserved EF IDDM HTN Sore Throat Debility Discharge Diagnosis Acute on Chronic Diastolic CHF with preserved EF: Cardiology was consulted and Echo showed preserved systolic function. Patient was diuresed with IV lasix and fluid status improved. She was continued on BB, ACEI and lasix at this time. Discussed in depth the importance of a low salt diet and daily weights. She was instructed to call the clinic if she noticed >5 lbs weight gain so that adjustments could be made to her medications prior to her ending up in the hospital. IDDM: Home insulin with SSI was continued while admitted. A1c during admission was 5.8 which shows that her DM is well controlled. HTN: Controlled during admission. Home meds were continued. Sore Throat: Likely 2/2 oxygen or viral. Will resolved on its own Debility: Patient was evaluated by PT during admission and it was recommended that she use a walker for ambulation. Encouraged patient to get up and walk around as much as she can to improve her strength. Chief Complaint/HPI Chief Complaint/HPI 66yo woman presented to clinic yesterday with complaints of increasing swelling and fatigue for the past week. She states her legs were much more swollen than usual despite taking her usual regimen of medicaiton. Slight cough, no fever. No chest pain, some SOB when moving around. In clinic, she was found to have a RA O2 sat of 90% and a left sided pleural effusion, so she was sent for evaluation in the ER where it was determined that she did have volume overload. Discharge Summary-Simple/Stand Procedures Echo Consultations Discharge Physical Examination Allergies: Coded Allergies: erythromycin base (Unverified Allergy, Severe, RASH, 10/03/14) Vitals & I&Os Vital Sign - Last 12Hours Date Time Temp Pulse Resp B/P (MAP) Pulse Ox O2 Delivery O2 Flow Rate FiO2 01/19/17 09:00 97 Nasal Cannula 2.00 01/19/17 08:39 98.4 64 20 122/79 Intake and Output 01/19/17 00:00 Intake Total 2280 ml Output Total 1250 ml Balance 1030 ml General Appearance: Alert, Oriented X3, Cooperative, No Acute Distress HEENT: Mucous Memb Moist/Lamy Respiratory: Clear to Auscultation, Normal Air Movement Cardiovascular: Regular Rate, No Murmurs Abdominal: Normal Bowel Sounds, Soft, No Tenderness Extremities: Other (trace swelling present, no ttp) Skin: No Rashes Neuro: Normal Gait, Normal Speech, Strength at 5/5 X4 Ext, Sensation Intact, Cranial Nerves 3-12 NL Psych/Mental Status: Mental Status NL, Mood NL Hospital Course See final discharge diagnosis. Radiology Reviewed Date of Exam: 01/15/17 CHEST 1 VIEW, AP/PA ONLY INDICATION: Chest pain and short of breath. COMPARISON: Prior examination from 10/03/14. FINDINGS: There is cardiomegaly. There is some venous congestion. There is no pleural effusion or pneumothorax. The mediastinum is unremarkable. IMPRESSION: Cardiomegaly and mild central pulmonary venous congestion. Discussion & Recommendations See D/c Diagnosis Discharge Condition at discharge Stable Instructions to patient/family Please see electonic discharge instructions given to patient. Discharge Medications Reviewed and agree with Discharge Medication list on patient's Discharge Instruction sheet Clinical Quality Measures DVT/VTE Risk/Contraindication: Risk Factor Score Per Nursin RFS Level Per Nursing on Admit: 4+=Very High Copy Copies To 1: HERACLIO MCBRIDE MD, HOLLY R MD Jan 19, 2017 11:08
[2017-01-19] MEDS ORDERED: FURO40TA4 PO (11:12)
--- NOTE | 2017-01-19 11:18 | Discharge Instructions ---
Discharge [facility] Discharge Medications New, Converted or Re-Newed RX: Call to Patients Pharmacy Changed Medications: Furosemide (Furosemide) 40 Mg Tablet 80 MG PO DAILY, #30 (Changed from: 40 MG) Take in the AM Continued Medications: Albuterol Sulfate (Albuterol Sulfate) 2.5 Mg/3 Ml Vial.neb 2.5 MG IH Q6H PRN for SHORTNESS OF BREATH Aspirin (Aspir-Low) 81 Mg Tablet.dr 81 MG PO DAILY, TAB Atorvastatin Calcium (Atorvastatin Calcium) 80 Mg Tablet 80 MG PO HS LAST FILLED 08/26/16 #90 Calcium Carbonate/Vitamin D3 (Calcium + D 600 Mg Tablet) 1 Each Tablet 1 TAB PO DAILY, TAB Calcium Polycarbophil (Fiber) 625 Mg Tablet 625 MG PO DAILY, TAB Carvedilol (Carvedilol) 6.25 Mg Tablet 6.25 MG PO BID Citalopram Hydrobromide (Citalopram HBr) 40 Mg Tablet 40 MG PO DAILY Enalapril Maleate (Enalapril Maleate) 20 Mg Tablet 20 MG PO DAILY Insulin Aspart (Novolog Flexpen) 300 Units/3 Ml Solution 20 UNITS SQ AC Insulin Detemir (Levemir Flextouch) 100 Unit/1 Ml Insuln.pen 20 UNITS SQ BID Levothyroxine Sodium (Levothyroxine Sodium) 125 Mcg Tablet 125 MCG PO DAILY Montelukast Sodium (Montelukast Sodium) 10 Mg Tablet 10 MG PO HS Multivitamins W-Minerals (Daily Multivitamin-Minerals) 1 Each Tablet 1 TAB PO DAILY, TAB [place]-3/Dha/Epa/Fish Oil (Fish Oil 1,000 Mg Ec Softgel) 1 Each Capsule.dr 2000 MG PO DAILY, CAP TAKES 2 (1,000 MG) CAPSULES Potassium Chloride (Potassium Chloride) 10 Meq Tab.er.prt 20 MEQ PO DAILY Pregabalin (Lyrica) 50 Mg Capsule 50 MG PO TID Sennosides/Docusate Sodium (Stool Softener Tablet) 1 Each Tablet 1 TAB PO DAILY, TAB Ubidecarenone (Co Q-10) 30 Mg Capsule 30 MG PO DAILY, CAP Vitamin B Complex (Vitamin B Complex) 1 Each Tablet 1 TAB PO DAILY, TAB [Cinnamon 1000] () 2000 MG PO DAILY Patient Instructions Goal/Follow Up Appt: Follow up appt with Dr Foster on January 23 @ 120PM for hospital follow up appt - You will then continue to see Dr Blancas Patient Instructions: - Make sure you weight yourself every morning and keep a log and bring to your appt - Discussed the importance of eating a low sodium diet Return to The [facility] For: - Increasing shortness of breath - Chest pain - Swelling in lower legs Activity & Diet Discharge Diet: Low Sodium Diet, ADA Diet Activity as Tolerated: Yes Copy Copies To 1: HERACLIO BLANCAS MD, HOLLY R MD Jan 19, 2017 11:18
[2017-01-19 12:00] VITALS: BP 98/59
[2017-01-19 14:52] VITALS: BP 98/59
== END 2017-01-19 14:52 | disposition home or self-care (01) | DRG 293 ==
LOC: EDUNIT# 17:04 → ER 17:05 → UNDOADMOB 19:00 → 4TH 19:00 → INTOOBSV 01-16 12:04 → OBSVTOIN 01-16 12:04 → UNDODISIN 01-19 14:52
PROVIDERS: ADMIT Pediatrics; ATTEND Pediatrics
DX: I11.0 Hypertensive heart disease with heart failure (principal); I50.33 Acute on chronic diastolic (congestive) heart failure; E11.9 Type 2 diabetes mellitus without complications; J45.909 Unspecified asthma, uncomplicated; F41.9 Anxiety disorder, unspecified; F32.9 Major depressive disorder, single episode, unspecified; M19.91 Primary osteoarthritis, unspecified site; J02.9 Acute pharyngitis, unspecified; R53.81 Other malaise; I25.2 Old myocardial infarction; Z87.891 Personal history of nicotine dependence; Z79.84 Long term (current) use of oral hypoglycemic drugs; Z79.4 Long term (current) use of insulin
CPT/HCPCS: 36415; 71010; 80048; 80053; 81000; 82962; 83036; 83880; 84484; 85007; 85025; 85027; 87040; 87088; 93005; 93306; 94640; 94760; G0378

== ENCOUNTER → 2017-05-04 | Outpatient (CLI) | payer MEDICARE ==
[~2017-05-04] VITALS: Ht 152.4 cm; Wt 103.4 kg
[~2017-05-04] MED LIST changes: +ALBU2.5V4 IH; +ATOR80TA76 PO; +CALC625T14 PO; +CATHETER FLUSH 10 ML SYR IV PRN; +CINNAMON PO; +CITA40TA11 PO; +FURO40TA4 PO; +INSU100I29 SQ; +LEVO125T6 PO; +MONT10TA24 PO; +PREG50CA2 PO; +REGADENOSON 0.4 MG/5 ML SYR (LEXISCAN) IV ONE; +UBID30CA9 PO; +VITA1TAB17 PO
[2017-05-04 09:48] VITALS: BP 144/73
[2017-05-04 09:50] VITALS: BP 152/72
[2017-05-04 09:52] VITALS: BP 137/71
--- NOTE | 2017-05-04 16:25 | STRESS TEST ---
DATE OF SERVICE: 05/04/2017 LEXISCAN MYOVIEW STRESS TEST REPORT REFERRING PHYSICIAN: Valerie Blancas M.D. Baseline heart rate is 62. Baseline blood pressure 124/73. Baseline EKG is sinus rhythm with no ischemic changes. In summary, the patient was injected with 10.84 mCi of technetium-99 Myoview and the resting images were obtained and the patient received 0.4 mg of Lexiscan followed by 29.9 mCi of technetium-99 Myoview. Throughout the test, there were no EKG changes. The resting and stress images were reviewed and compared in the short axis, horizontal long axis and vertical long axis views. Review of the images showed breast attenuation with typical female pattern, no significant ischemia or infarction was noted. SSS is 4. SDS 2. TID value 1.03. On the gated images, the left ventricle appeared to be normal size with normal contractility. Calculated ejection fraction 82%. CONCLUSION: 1. The patient tolerated Lexiscan well. 2. Breast attenuation with no significant ischemia or infarction on SPECT images. 4. Normal left ventricular size with normal contractility. Calculated ejection fraction 82%. Job ID: [id number] DocumentID: [id number] Dictated Date: 05/04/2017 12:04:21 Ob Gyn Physician Assistant Date: 05/04/2017 15:01:21 Dictated By: GUEVARA GONZALEZ MD
== END ==
LOC: CARD 07:44
PROVIDERS: ATTEND Internal Medicine Cardiovascular Disease
DX: I51.81 Takotsubo syndrome (principal)
CPT/HCPCS: 78452; 93017

== ENCOUNTER 2018-10-13 03:14 | Emergency (ER) | payer MEDICARE ==
[~2018-10-13] VITALS: Ht 152.4 cm; Wt 103.4 kg
[~2018-10-13 03:14] MED LIST changes: -CATHETER FLUSH 10 ML SYR IV PRN; -REGADENOSON 0.4 MG/5 ML SYR (LEXISCAN) IV ONE
[2018-10-13] MEDS ORDERED: RT-ALBUTEROL/IPRATROPIUM 3 ML (DUONEB) VIAL INH ONE (03:45)
[2018-10-13 03:46] LABS: BASOPHILS # (AUTO) 0.1 10^3/uL (0.0-0.1); BASOPHILS % (AUTO) 1 % (0-10); EOSINOPHILS # (AUTO) 0.2 10^3/uL (0.0-0.3); EOSINOPHILS % (AUTO) 3 % (0-10); HEMATOCRIT 41 % (35-52); HEMOGLOBIN 14.1 G/DL (11.5-16.0); LYMPHOCYTES # (AUTO) 2.3 X 10^3 (1.0-4.0); LYMPHOCYTES % (AUTO) 26 % (12-44); MEAN CORPUSCULAR HEMOGLOBIN 33 PG (25-34); MEAN CORPUSCULAR HGB CONC 34 G/DL (32-36); MEAN CORPUSCULAR VOLUME 97 FL (80-99); MEAN PLATELET VOLUME 9.8 FL (7.4-10.4); MONOCYTES # (AUTO) 0.9 X 10^3 (0.0-1.0); MONOCYTES % (AUTO) 10 % (0-12); NEUTROPHILS # (AUTO) 5.3 X 10^3 (1.8-7.8); NEUTROPHILS % (AUTO) 60 % (42-75); PLATELET COUNT 300 10^3/uL (130-400); RED CELL DISTRIBUTION WIDTH 13.2 % (10.0-14.5); WHITE BLOOD COUNT 8.7 10^3/uL (4.3-11.0)
[2018-10-13 04:09] LABS: BILIRUBIN,TOTAL 0.4 MG/DL (0.1-1.0); CALCIUM 9.5 MG/DL (8.5-10.1); CREATININE SERUM 0.94 MG/DL (0.60-1.30); MAGNESIUM 2.2 MG/DL (1.8-2.4); POTASSIUM 4.3 MMOL/L (3.6-5.0); TOTAL PROTEIN 7.3 GM/DL (6.4-8.2)
[2018-10-13] MEDS ORDERED: fentaNYL INJECTION 100 MCG/2 ML AMP IVP ONE ×2 (04:15→05:15)
[2018-10-13 04:26] LABS: BILIRUBIN,URINE NEGATIVE (NEGATIVE); CLARITY,URINE SLIGHTLY CLOUDY; COLOR,URINE YELLOW; GLUCOSE, URINE (UA) NEGATIVE (NEGATIVE); KETONES,URINE NEGATIVE (NEGATIVE); LEUKOCYTE ESTERASE ,URINE 3+ (NEGATIVE); NITRITE,URINE NEGATIVE (NEGATIVE); PH,URINE 5 (5-9); PROTEIN,URINE 1+ (NEGATIVE); UROBILINOGEN,URINE NORMAL (NORMAL)
[2018-10-13 04:36] LABS: BACTERIA,URINE MODERATE /HPF; RBC,URINE 0-2 /HPF; WBC,URINE 50-100 /HPF
[2018-10-13 04:55] LABS: FREE T4 (FREE THYROXINE) 0.97 NG/DL (0.70-1.48)
[2018-10-13] MEDS ORDERED: cefTRIAXone FOR IV USE 1,000 MG in WATER (STERILE) FOR INJECTION 10 ML IV ONE (05:00)
[2018-10-13] MEDS ORDERED: KETOROLAC 30 MG/ML VIAL IVP ONE (05:45)
--- NOTE | 2018-10-13 05:46 | ED Fall/Injury ---
General Chief Complaint: Trauma-Non Activation Stated Complaint: SOB,RT SIDE RIB PAIN,FALL ON 10-11-18 Nursing Triage Note: PT STATES SHE FELL FROM A STANDING POSITION TWO DAYS AGO, STATES SHE HAS HAD INCREASED PAIN AND DIFFICULTY WITH TAKING A DEEP BREATHE SINCE THEN. PT STATES SHE IS UNABLE TO LAY SUPINE AT NIGHT SINCE THE INCIDENT Source: patient Exam Limitations: no limitations History of Present Illness Date Seen by Provider: Oct 13, 2018 Time Seen by Provider: 03:25 Initial Comments This 68-year-old woman presents to the emergency room with complaints of pain in the right chest beneath the right breast. She has had multiple falls recently. Most recently she fell on October 11. She has had escalating pain in the right chest since then. Pain is worse with breathing and with palpation of the chest wall. She has not taken medications for the pain. She has pain radiating into the right shoulder but no tenderness in the shoulder on exam. Allergies and Home Medications Allergies Coded Allergies: erythromycin base (Unverified Allergy, Severe, RASH, 10/03/14) Home Medications Albuterol Sulfate 2.5 Mg/3 Ml Vial.neb, 2.5 MG IH Q6H PRN for SHORTNESS OF BREATH, (Reported) Aspirin 81 Mg Tablet.dr, 81 MG PO DAILY, (Reported) Atorvastatin Calcium 80 Mg Tablet, 80 MG PO HS, (Reported) LAST FILLED 08/26/16 #90 Calcium Carbonate/Vitamin D3 1 Each Tablet, 1 TAB PO DAILY, (Reported) Calcium Polycarbophil 625 Mg Tablet, 625 MG PO DAILY, (Reported) Carvedilol 6.25 Mg Tablet, 6.25 MG PO BID, (Reported) Cephalexin 500 Mg Capsule, 500 MG PO TID Prescribed by: ERIN BHAKTA on 10/13/18 0615 Citalopram Hydrobromide 40 Mg Tablet, 40 MG PO DAILY, (Reported) Enalapril Maleate 20 Mg Tablet, 20 MG PO DAILY, (Reported) Furosemide 40 Mg Tablet, 80 MG PO DAILY Take in the AM Prescribed by: PILAR PATTERSON on 01/19/17 1112 Insulin Aspart 300 Units/3 Ml Solution, 20 UNITS SQ AC, (Reported) Insulin Detemir 100 Unit/1 Ml Insuln.pen, 20 UNITS SQ BID, (Reported) Levothyroxine Sodium 125 Mcg Tablet, 125 MCG PO DAILY, (Reported) Montelukast Sodium 10 Mg Tablet, 10 MG PO HS, (Reported) Multivitamins W-Minerals 1 Each Tablet, 1 TAB PO DAILY, (Reported) [place]-3/Dha/Epa/Fish Oil 1 Each Capsule.dr, 2,000 MG PO DAILY, (Reported) TAKES 2 (1,000 MG) CAPSULES Oxycodone HCl/Acetaminophen 1 Each Tablet, 1-2 TAB PO Q6H Prescribed by: ERIN BHKATA on 10/13/18 0610 Potassium Chloride 10 Meq Tab.er.prt, 20 MEQ PO DAILY, (Reported) Pregabalin 50 Mg Capsule, 50 MG PO TID, (Reported) Sennosides/Docusate Sodium 1 Each Tablet, 1 TAB PO DAILY, (Reported) Ubidecarenone 30 Mg Capsule, 30 MG PO DAILY, (Reported) Vitamin B Complex 1 Each Tablet, 1 TAB PO DAILY, (Reported) [Cinnamon 1000] , 2,000 MG PO DAILY, (Reported) Patient Home Medication List Home Medication List Reviewed: Yes Review of Systems Review of Systems Constitutional: no symptoms reported Eyes: No Symptoms Reported Ears, Nose, Mouth, Throat: no symptoms reported Respiratory: see HPI Cardiovascular: no symptoms reported Gastrointestinal: no symptoms reported Genitourinary: no symptoms reported : No Musculoskeletal: see HPI Skin: no symptoms reported Psychiatric/Neurological: No Symptoms Reported Past Utauqtz-Sklrgs-Toxldj Hx Past Med/Social Hx: Reviewed Nursing Past Med/Soc Hx Patient Social History Type Used: Cigarettes Former Smoker, Quit: Jan 03, 1977 Recent Foreign Travel: No Contact w/Someone Who Travel: No Recent Infectious Disease Expo: No Recent Hopitalizations: No Immunizations Up To Date Tetanus Booster (TDap): Unknown Date of Pneumonia Vaccine: Sep 15, 2016 Date of Influenza Vaccine: Jun 05, 2014 Seasonal Allergies Seasonal Allergies: Yes Past Medical History Surgeries: Yes (tubal preg) Gallbladder, Hysterectomy, Oophorectomy, Tubal Ligation Respiratory: Yes Asthma, Pneumonia Cardiac: Yes (HEART CATH) Heart Attack, Hypertension : No Female Reproductive Disorders: Denies [employer] WORK[employer] History: Hysterectomy Sexually Transmitted Disease: No HIV/AIDS: No Genitourinary: Yes (dribbling) UTI-Chronic Gastrointestinal: Yes Chronic Diarrhea Musculoskeletal: Yes Arthritis, Fibromyalgia Endocrine: Yes Diabetes, Insulin dep, Hypothyroidsim HEENT: Yes Cataract Hearing Impairment: Hard of Hearing Cancer: No Psychosocial: Yes Anxiety, Depression Integumentary: No Blood Disorders: No Adverse Reaction/Blood Tranf: No Family Medical History CVA 19 FATHER, Onset:Unknown FH: breast cancer 19 FATHER, Onset:Unknown FH: colon cancer 19 MOTHER, Onset:Unknown FHx: irritable bowel syndrome 19 MOTHER, Onset:Unknown Kidney stone 19 FATHER, Onset:Unknown Physical Exam Vital Signs Vital Signs - First Documented 10/13/18 03:24 Temp 95.9 Pulse 61 Resp 24 B/P (MAP) 137/116 (123) Pulse Ox 96 O2 Delivery Room Air Capillary Refill : Less Than 3 Seconds Height, Weight, BMI Height: 5'0.00" Weight: 228lbs. 0.0oz. 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, no motor/sensory deficits, alert, normal mood/affect, oriented x 3 Skin: normal color, warm/dry, other (mild intertrigo under the breasts) Pinon Coma Score Best Eye Response: (4) Open Spontaneously Best Verbal Response: (5) Oriented Best Motor Response: (6) Obeys Commands Jd Total: 15 Progress/Results/Core Measures Results/Orders Lab Results Laboratory Tests Test 10/13/18 03:31 10/13/18 04:13 Range/Units White Blood Count 8.7 4.3-11.0 10^3/uL Red Blood Count 4.29 L 4.35-5.85 10^6/uL Hemoglobin 14.1 11.5-16.0 G/DL Hematocrit 41 35-52 % Mean Corpuscular Volume 97 80-99 FL Mean Corpuscular Hemoglobin 33 25-34 PG Mean Corpuscular Hemoglobin Concent 34 32-36 G/DL Red Cell Distribution Width 13.2 10.0-14.5 % Platelet Count 300 130-400 10^3/uL Mean Platelet Volume 9.8 7.4-10.4 FL Neutrophils (%) (Auto) 60 42-75 % Lymphocytes (%) (Auto) 26 12-44 % Monocytes (%) (Auto) 10 0-12 % Eosinophils (%) (Auto) 3 0-10 % Basophils (%) (Auto) 1 0-10 % Neutrophils # (Auto) 5.3 1.8-7.8 X 10^3 Lymphocytes # (Auto) 2.3 1.0-4.0 X 10^3 Monocytes # (Auto) 0.9 0.0-1.0 X 10^3 Eosinophils # (Auto) 0.2 0.0-0.3 10^3/uL Basophils # (Auto) 0.1 0.0-0.1 10^3/uL Sodium Level 136 135-145 MMOL/L Potassium Level 4.3 3.6-5.0 MMOL/L Chloride Level 100 98-107 MMOL/L Carbon Dioxide Level 26 21-32 MMOL/L Anion Gap 10 5-14 MMOL/L Blood Urea Nitrogen 24 H 7-18 MG/DL Creatinine 0.94 0.60-1.30 MG/DL Estimat Glomerular Filtration Rate 59 BUN/Creatinine Ratio 26 Glucose Level 135 H 70-105 MG/DL Calcium Level 9.5 8.5-10.1 MG/DL Corrected Calcium 9.5 8.5-10.1 MG/DL Magnesium Level 2.2 1.8-2.4 MG/DL Total Bilirubin 0.4 0.1-1.0 MG/DL Aspartate Amino Transf (AST/SGOT) 18 5-34 U/L Alanine Aminotransferase (ALT/SGPT) 23 0-55 U/L Alkaline Phosphatase 86 40-136 U/L B-Type Natriuretic Peptide 71.1 <100.0 PG/ML Total Protein 7.3 6.4-8.2 GM/DL Albumin 4.0 3.2-4.5 GM/DL Thyroid Stimulating Hormone (TSH) 5.55 H 0.35-4.94 UIU/ML Free Thyroxine 0.97 0.70-1.48 NG/DL Urine Color YELLOW Urine Clarity SLIGHTLY CLOUDY Urine pH 5 5-9 Urine Specific [place] 1.015 L 1.016-1.022 Urine Protein 1+ H NEGATIVE Urine Glucose (UA) NEGATIVE NEGATIVE Urine Ketones NEGATIVE NEGATIVE Urine Nitrite NEGATIVE NEGATIVE Urine Bilirubin NEGATIVE NEGATIVE Urine Urobilinogen NORMAL NORMAL MG/DL Urine Leukocyte Esterase 3+ H NEGATIVE Urine RBC (Auto) 1+ H NEGATIVE Urine RBC 0-2 /HPF Urine WBC 50-100 H /HPF Urine Squamous Epithelial Cells 5-10 /HPF Urine Crystals NONE /LPF Urine Bacteria MODERATE H /HPF Urine Casts NONE /LPF Urine Mucus SMALL H /LPF Urine Culture Indicated YES My Orders Orders - ERIN CASTELLANO MD BNP (10/13/18 03:30) Cbc With Automated Diff (10/13/18 03:30) Comprehensive Metabolic Panel (10/13/18 03:30) Magnesium (10/13/18 03:30) Ua Culture If Indicated (10/13/18 03:30) Ct Chest Wo (10/13/18 03:30) Ed Iv/Invasive Line Start (10/13/18 03:30) Albuterol/Ipra Inhalation Soln (Duoneb I (10/13/18 03:45) Svn Small Volume Nebulizer (10/13/18 03:32) Thyroid Stimulating Hormone (10/13/18 04:07) Free T4 (Free Thyroxine) (10/13/18 04:07) Fentanyl Injection (Sublimaze Injection (10/13/18 04:15) Urine Culture (10/13/18 04:13) Ceftriaxone For Iv Use (Rocephin For I (10/13/18 05:00) Fentanyl Injection (Sublimaze Injection (10/13/18 05:15) Ketorolac Injection (Toradol Injection) (10/13/18 05:45) Rx-Oxycodone/Apap 5-325 Mg (Rx-Percocet (10/13/18 06:00) Medications Given in ED Current Medications Medications Dose Ordered Sig/[place] Route Start Time Stop Time Status Last Admin Dose Admin Albuterol/ Ipratropium 3 ml ONCE ONCE INH 10/13/18 03:45 10/13/18 03:47 DC 10/13/18 03:40 3 ML Ceftriaxone Sodium 1000 mg/ Sterile Water 10 ml @ 200 mls/hr ONCE ONCE IV 10/13/18 05:00 10/13/18 05:02 DC 10/13/18 05:45 200 MLS/HR Fentanyl Citrate 25 mcg ONCE ONCE IVP 10/13/18 04:15 4/10/19 04:16 DC 10/13/18 04:32 25 MCG Fentanyl Citrate 50 mcg ONCE ONCE IVP 10/13/18 05:15 10/13/18 05:16 DC 10/13/18 05:27 50 MCG Ketorolac Tromethamine 30 mg ONCE ONCE IVP 10/13/18 05:45 10/13/18 05:46 DC 10/13/18 05:51 30 MG Vital Signs/I&O 10/13/18 10/13/18 10/13/18 03:24 03:40 06:06 Temp 95.9 Pulse 61 Resp 24 B/P (MAP) 137/116 (123) Pulse Ox 96 95 O2 Delivery Room Air Room Air Room Air Blood Pressure Mean: 123 Progress Progress Note #1: Time: 05:44 Progress Note Wheezing was heard on exam. DuoNeb treatment was administered. Labs and urinalysis were obtained to evaluate for causes of her falls. A significant urinary tract infection was identified. Rocephin was ordered for initial therapy. Pain was initially treated with fentanyl 25 g followed by fentanyl 50 g. On initial assessment patient was found to have tenderness of the chest wall inferior to and lateral to the right breast. CT was obtained to evaluate for rib fractures and pulmonary contusion. Images were reviewed. Report is still pending. Toradol has been ordered for further pain management. Progress Note #2: Time: 06:06 Progress Note Toradol was administered for further pain control. A take-home pack of Percocet is being dispensed. Patient received incentive spirometry training by RT. Injuries seem to be consistent with rib fractures suspected on CT scan. There is tenderness on exam in the location identified by the radiologist. Patient did not have tachycardia or hypoxia. Homans sign was negative. Diagnostic Imaging Diagonstic Imaging: CT Plain Films/CT/US/NM/MRI: chest Comments CT chest viewed by me and stat rad report reviewed. There are possible multiple right rib fractures which correlate well with patient's pain. Departure Impression Primary Impression: Rib fractures Qualified Codes: S22.41XA - Multiple fractures of ribs, right side, initial encounter for closed fracture Additional Impressions: Fall on same level Qualified Codes: W18.30XA - Fall on same level, unspecified, initial encounter Urinary tract infection Qualified Codes: N39.0 - Urinary tract infection, site not specified Asthma exacerbation Qualified Codes: J45.901 - Unspecified asthma with (acute) exacerbation Disposition: HOME, SELF-CARE Condition: Improved Departure-Patient Inst. Decision time for Depature: 05:45 Referrals: HERACLIO MCBRIDE MD (PCP/Family) Primary Care Physician Patient Instructions: Rib Fractures in Adults Add. Discharge Instructions: Use Percocet as prescribed to control pain well. Exercise deep breathing at least 10 times per hour while awake. Follow-up with your primary care provider soon as possible. Complete your antibiotic as prescribed and review your culture results with your doctor. Culture results should be available within 48 hours. Return to care if you have worsening symptoms or if you develop new symptoms such as fever or cough. All discharge instructions reviewed with patient and/or family. Voiced understanding. Scripts Cephalexin (Keflex) 500 Mg Capsule 500 MG PO TID, #20 CAP Prov: ERIN CASTELLANO MD 10/13/18 Oxycodone HCl/Acetaminophen (Percocet 5-325 mg Tablet) 1 Each Tablet 1-2 TAB PO Q6H for PAIN-MODERATE MDD 6 TABS, #20 TAB Prov: ERIN CASTELLANO MD 10/13/18 Copy Copies To 1: HERACLIO MCBRIDE MD, JOSHUA T MD Oct 13, 2018 05:46
[2018-10-13] MEDS ORDERED: RX-OXYCODONE/APAP 5-325 MG #4 TAB PK PO PRN (06:00)
[2018-10-13] MEDS ORDERED: OXYC1TAB87 PO (06:10)
[2018-10-13] MEDS ORDERED: CEPH-507 PO (06:15)
[2018-10-13 06:25] VITALS: BP 117/49
--- NOTE | 2018-10-13 08:36 | Diagnostic Imaging Report ---
PROCEDURE: CT chest without contrast. TECHNIQUE: Multiple contiguous axial images were obtained through the chest without the use of intravenous contrast. Auto Exposure Controls were utilized during the CT exam to meet ALARA standards for radiation dose reduction. INDICATION: Fall from standing 2 days ago with increased pain and difficulty taking deep breaths. Unable to lay supine. COMPARISON: Radiographs from 01/15/2017 FINDINGS: The heart is normal in size. There is no pericardial effusion. No mediastinal adenopathy is seen. There is mild calcific atherosclerosis. No focal consolidation is seen. There is minimal dependent atelectasis. There is no pleural effusion or pneumothorax. No central endobronchial lesions are seen. There is subtle irregularity of the lateral right fifth and sixth ribs, which is thought to be from remote trauma. No acute displaced fracture is seen. The vertebral body heights are preserved. There are mild multilevel degenerative changes present with posterior disc osteophyte complex at T10-T11 which causes narrowing of the spinal canal. Imaged portions of the upper abdomen demonstrate a 5 mm nonobstructing calculus in the right kidney. Cholecystectomy clips are noted. There is a small diverticulum at the duodenum. IMPRESSION: 1. Mild irregularity of the right fifth and sixth ribs is thought to be due to remote trauma, please correlate with point tenderness. No acute displaced fractures are seen. 2. No acute pulmonary abnormality seen. Dictated by: Dictated on workstation # [id number]
== END 2018-10-13 06:25 | disposition home or self-care (01) ==
LOC: EDUNIT# 03:14 → ER 03:17
DX: S22.41XA Multiple fractures of ribs, right side, initial encounter for closed fracture (principal); N39.0 Urinary tract infection, site not specified; J45.901 Unspecified asthma with (acute) exacerbation; I25.2 Old myocardial infarction; I10 Essential (primary) hypertension; M79.7 Fibromyalgia; E03.9 Hypothyroidism, unspecified; E11.9 Type 2 diabetes mellitus without complications; F41.9 Anxiety disorder, unspecified; F32.9 Major depressive disorder, single episode, unspecified; R40.2142 Coma scale, eyes open, spontaneous, at arrival to emergency department; R40.2252 Coma scale, best verbal response, oriented, at arrival to emergency department; R40.2362 Coma scale, best motor response, obeys commands, at arrival to emergency department; Z87.19 Personal history of other diseases of the digestive system; Z87.440 Personal history of urinary (tract) infections; Z95.9 Presence of cardiac and vascular implant and graft, unspecified; Z91.041 Radiographic dye allergy status; Z79.82 Long term (current) use of aspirin; Z79.4 Long term (current) use of insulin; Z87.891 Personal history of nicotine dependence; Z90.710 Acquired absence of both cervix and uterus; Z98.51 Tubal ligation status; Z87.01 Personal history of pneumonia (recurrent); W18.30XA Fall on same level, unspecified, initial encounter
CPT/HCPCS: 36415; 71250; 80053; 81000; 83735; 83880; 84439; 84443; 85025; 87088; 94640; 94664

== ENCOUNTER → 2021-01-01 | Outpatient (CLI) | payer MEDICARE ==
[~2021-01-01] MED LIST changes: +ASPI-1238 PO; +CALC-78 PO; +CEPH-507 PO; +DOCU100T7 PO; +ENAL20TA16 PO; +FURO80TA3 PO; +GABA300C PO; -MONT10TA24 PO; +MONT10TA32 PO; +MULT-422 PO; +OMEG12002 PO; +OXYC1TAB87 PO; +SENN-145 PO; +SERT-412 PO; +UBID30CA20 PO; -UBID30CA9 PO; +VITA1TAB78 PO; +[UNRECOGNIZED DRUG - CODE] PO
--- NOTE | 2021-01-01 16:24 | Diagnostic Imaging Report ---
INDICATION: Postmenopausal state. COMPARISON: 08/03/2014 FINDINGS: AP Spine L1-L4: [BMD (g/cm2): 1.052] [T-Score: -1.2] [Z-Score: -0.7] [BMD Previous: 1.091] [BMD % Change: -3.6] LT Hip Neck: [BMD (g/cm2): 0.629] [T-Score: -2.9] [Z-Score: -1.9] LT Hip Total: [BMD (g/cm2):0.792] [T-Score:-1.7] [Z-Score: -1.0] [BMD Previous: 0.911] [BMD % Change: -13.1] RT Hip Neck: [BMD (g/cm2):0.709] [T-Score:-2.4] [Z-Score:-1.3] RT Hip Total: [BMD (g/cm2):0.881] [T-score:-1.0] [Z-Score:-0.3] [BMD Previous:0.886] [BMD % Change:-0.6] *Indicates significant change from prior examination based on 95% confidence level. World Health Organization criteria for BMD interpretation classify patients as Normal (T-score at or above -1.0), Osteopenic (T-score between -1.0 and -2.5) or Osteoporotic (T-score at or below -2.5). LIMITATIONS AND MODIFICATION: None. FRACTURE RISK (FRAX SCORE): The ten year probability of (%): Major Osteoporotic Fracture: [24.4] Hip Fracture: [7.5] IMPRESSION: 1. Osteoporosis. 2. No significant change in bone mineral density since prior examination. 3. See below National Osteoporosis Foundation guidelines on when to potentially initiate pharmacologic therapy. Based on the National Osteoporosis Foundation Guidelines, pharmacologic treatment should be initiated in any of the following, unless clinical conditions suggest otherwise: * Any patient with prior fragility fracture of the hip or vertebrae. A spine fracture indicates 5X risk for subsequent spine fracture and 2X risk for subsequent hip fracture. * Osteoporosis (T-score <-2.5). * Postmenopausal women and men age 50 and older with low bone mass/osteopenia (T-score between -1.0 and -2.5) by DXA and 10-year major osteoporotic fracture greater than 20% or a 10-year probability of hip fracture greater than 3%. These fracture risks are supplied above in the FRAX score, if applicable. * Clinician judgement and/or patient preferences may indicate treatment for people with 10-year fracture probabilities above or below these levels. Dictated by: Dictated on workstation # [id number]
== END ==
LOC: RAD 12:16
PROVIDERS: ATTEND Family Medicine
DX: M81.0 Age-related osteoporosis without current pathological fracture (principal); Z78.0 Asymptomatic menopausal state
CPT/HCPCS: 77080

== ENCOUNTER 2021-12-03 15:23 | Emergency (ER) | payer MEDICARE ==
[~2021-12-03] VITALS: Ht 152 cm; Wt 104.3 kg
[~2021-12-03 15:23] MED LIST changes: -CITA40TA11 PO; +CITA40TA13 PO; +MONT-40 PO; -MONT10TA32 PO; +POTA10TA37 PO
[2021-12-03] MEDS ORDERED: NS IV 500 ML 500 ML IV ONE (15:30)
--- NOTE | 2021-12-03 16:23 | Diagnostic Imaging Report ---
INDICATION: Left shoulder pain. FINDINGS: AP view of the left humerus shows a comminuted fracture of the proximal left humerus shaft with lateral displacement and angulation of the distal component. IMPRESSION: Angulated/displaced, comminuted fracture of the proximal left humerus shaft. Dictated by: Dictated on workstation # [id number]
[2021-12-03] MEDS ORDERED: oxyCODONE/APAP 5/325MG (PERCOCET 5) TABLET PO ONE (16:30)
[2021-12-03] MEDS ORDERED: OXYC1TAB11 PO (17:03)
--- NOTE | 2021-12-03 17:07 | ED Upper Extremity ---
General Chief Complaint: Trauma-Non Activation Stated Complaint: FALL Nursing Triage Note: Pt to ED via EMS with c/o fall and left arm pain. Pt reports tripping walking out of her DIL's room, pt has left arm splinted per EMS. Pt was given 50mcg fentanyl and 500ml NS per EMS. Pt denies hitting head, - LOC Source: patient Exam Limitations: no limitations History of Present Illness Date Seen by Provider: December 03, 2021 Time Seen by Provider: 16:43 Initial Comments tHIS IS A 71-YEAR-OLD FEMALE WHO PRESENTED TO THE er VIA [facility] ems AFTER SHE TRIPPED AND FELL AT HER HOME. Allergies and Home Medications Allergies Coded Allergies: erythromycin base (Unverified Allergy, Severe, RASH, 10/03/14) Patient Home Medication List Albuterol Sulfate (Albuterol Sulfate) 2.5 Mg/3 Ml Vial.neb, 2.5 MG IH Q6H PRN for SHORTNESS OF BREATH, (Reported) Entered as Reported by: DANIEL ODONNELL on 01/16/17 1108 Aspirin (Aspirin EC) 81 Mg Tablet.dr, 81 MG PO DAILY, (Reported) Entered as Reported by: OLVIN HOFFMAN on 02/13/20 1404 Atorvastatin Calcium (Atorvastatin Calcium) 80 Mg Tablet, 80 MG PO HS, (Reported) Entered as Reported by: DANIEL ODONNELL on 01/16/17 1108 Calcium Carbonate/Vitamin D3 (Calcium 500 + Vit D Caplet) 1 Each Tablet, 1 EACH PO DAILY, (Reported) Entered as Reported by: OLVIN HOFFMAN on 02/13/20 1418 Calcium Polycarbophil (Calcium Polycarbophil) 625 Mg Tablet, 625 MG PO HS, (Reported) Entered as Reported by: OLVIN HOFFMAN on 02/13/20 1404 Docusate Sodium (Stool Softener) 100 Mg Tablet, 100 MG PO HS, (Reported) Entered as Reported by: OLVIN HOFFMAN on 02/13/20 1418 Enalapril Maleate (Enalapril Maleate) 20 Mg Tablet, 20 MG PO DAILY, (Reported) Entered as Reported by: DANIEL ODONNELL on 01/16/17 1108 Furosemide (Furosemide) 80 Mg Tablet, 80 MG PO DAILY, (Reported) Entered as Reported by: OLVIN HOFFMAN on 02/13/20 1425 Gabapentin (Neurontin) 300 Mg Capsule, 300 MG PO TID, (Reported) Entered as Reported by: OLVIN HOFFMAN on 02/13/20 140 Insulin Aspart (Novolog Flexpen) 300 Units/3 Ml Solution, 25 UNITS SQ AC, (Reported) Entered as Reported by: DANIEL ODONNELL on 01/16/171107 Insulin Detemir (Levemir Flextouch) 100 Unit/1 Ml Insuln.pen, 30 UNITS SQ BID, (Reported) Entered as Reported by: DANIEL ODONNELL on 01/16/171107 Levothyroxine Sodium (Levothyroxine Sodium) 125 Mcg Tablet, 125 MCG PO DAILY, (Reported) Entered as Reported by: DANIEL ODONNELL on 01/16/171107 Montelukast Sodium (Montelukast Sodium) 10 Mg Tablet, 10 MG PO HS, (Reported) Entered as Reported by: DANIEL ODONNELL on 01/16/171107 Multivitamin with Minerals (One Daily Plus Minerals) 1 Each Tablet, 1 EACH PO DAILY, (Reported) Entered as Reported by: OLVIN HOFFMAN on 02/13/20 140 [place]-3/Dha/Epa/Fish Oil (Fish Oil 1,200 mg Softgel) 1,200 Mg Capsule, 1,200 MG PO DAILY, (Reported) Entered as Reported by: OLVIN HOFFMAN on 02/13/20 1422 Potassium Chloride (Potassium Chloride) 10 Meq Tab.er.prt, 10 MEQ PO BID, (Repor jarrett) Entered as Reported by: DANIEL ODONNELL on 01/16/171107 Sertraline HCl (Sertraline HCl) 25 Mg Tablet, 25 MG PO DAILY, (Reported) Entered as Reported by: OLVIN HOFFMAN on 02/13/20 140 Ubidecarenone (Co Q-10) 30 Mg Capsule, 30 MG PO DAILY, (Reported) Entered as Reported by: DANIEL ODONNELL on 01/16/171107 Past Opjdgtf-Lbunlz-Siikxa Hx Patient Social History Tobacco Use?: No Substance use?: No Alcohol Use?: No Immunizations Up To Date Tetanus Booster (TDap): Unknown PED Vaccines UTD: Yes Influenza Vaccine Up-to-Date: Yes; Up-to-Date Seasonal Allergies Seasonal Allergies: No Past Medical History Surgeries: Yes Hysterectomy, Tonsillectomy Respiratory: Yes Asthma Cardiac: No Heart Attack, Hypertension Neurological: No 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 Sexually Transmitted Disease: No HIV/AIDS: No Genitourinary: No UTI-Chronic Gastrointestinal: No Chronic Diarrhea Musculoskeletal: No Arthritis, Fibromyalgia Endocrine: No Diabetes, Insulin dep, Hypothyroidsim HEENT: No Cataract Hearing Impairment: Hard of Hearing Cancer: No Psychosocial: No Anxiety, Depression Integumentary: No Blood Disorders: No Adverse Reaction/Blood Tranf: No Family Medical History CVA 19 FATHER, Onset:Unknown FH: breast cancer 19 FATHER, Onset:Unknown FH: colon cancer 19 MOTHER, Onset:Unknown FHx: irritable bowel syndrome 19 MOTHER, Onset:Unknown Kidney stone 19 FATHER, Onset:Unknown Physical Exam Vital Signs Vital Signs - First Documented 12/03/21 15:24 Temp 36.6 Pulse 70 Resp 16 B/P (MAP) 88/50 (63) Pulse Ox 98 O2 Delivery Nasal Cannula O2 Flow Rate 2.00 Capillary Refill : Less Than 3 Seconds Height, Weight, BMI Height: 5'0.00" Weight: 228lbs. 0.0oz. 103.080326ao; 45.00 BMI Method:Stated Progress/Results/Core Measures Results/Orders My Orders Orders - UMESH JOSE HYGIENE ASSISTANT Ed Iv/Invasive Line Start (12/03/21 15:30) Ns Iv 500 Ml (Sodium Chloride 0.9%) (12/03/21 15:30) Shoulder, Left, 1 View (12/03/21 16:12) Oxycodone/Apap 5/325mg Tablet (Percocet (12/03/21 16:30) Medications Given in ED Current Medications Medications Dose Ordered Sig/[place] Route Start Time Stop Time Status Last Admin Dose Admin Oxycodone/ Acetaminophen 1 tab ONCE ONCE PO 12/03/21 16:30 12/03/21 16:32 DC 12/03/21 16:35 1 TAB Sodium Chloride 500 ml @ 0 mls/hr Q0M ONCE IV 12/03/21 15:30 12/03/21 15:31 DC 12/03/21 15:43 999 MLS/HR Vital Signs/I&O 12/03/21 15:24 Temp 36.6 Pulse 70 Resp 16 B/P (MAP) 88/50 (63) Pulse Ox 98 O2 Delivery Nasal Cannula O2 Flow Rate 2.00 Blood Pressure Mean: 63 Departure Communication (Admissions) Time/Spoke to Consulting Phy: 16:26 Dr. Tariq Impression Primary Impression: Fracture, humerus closed, shaft Disposition: 01 HOME, SELF-CARE Condition: Stable Departure-Patient Inst. Decision time for Depature: 16:59 Referrals: HERACLIO MCBRIDE MD (PCP) Primary Care Physician [facility] (Family) Primary Care Physician Patient Instructions: Upper Arm Fracture ED Add. Discharge Instructions: Plan: 1. Keep arm in sling at all times for stabilization. When lying down you can place a pillow under your elbow for support. 2. May take Oxycodone 5/325mg tabs by mouth every 6 hours as needed for pain. 3. Ice 20 minutes at a time for swelling. 4. You can call the local [facility] in [place] or [facility] and they will provide you with a shower chair, commode, any additional assistive devices you may require. 5. Call Dr. Tariq office tomorrow to schedule follow up. Office number is [phone]. 6. If you lose sensation in your fingers, they become cold, increased pain, or discolored please return to the ER. 7. Return for any new, concerning, or worsening symptoms. [phone] [facility] All discharge instructions reviewed with patient and/or family. Voiced understanding. Scripts Oxycodone HCl/Acetaminophen (Oxycodone-Acetaminophen 5-325) 5 Mg-325 Mg Tablet 1 EACH PO Q6H PRN for PAIN-MODERATE MDD 6, #20 TAB 0 Refills Prov: UMESH JOSE HYGIENE ASSISTANT 12/03/21 UMESH JOSE HYGIENE ASSISTANT December 03, 2021 17:07
[2021-12-03 17:55] VITALS: BP 130/64
== END 2021-12-03 17:55 | disposition home or self-care (01) ==
LOC: EDUNIT# 15:23 → ER 15:25
DX: S42.352A Displaced comminuted fracture of shaft of humerus, left arm, initial encounter for closed fracture (principal); E11.9 Type 2 diabetes mellitus without complications; Z79.4 Long term (current) use of insulin; W01.0XXA Fall on same level from slipping, tripping and stumbling without subsequent striking against object, initial encounter; Y92.009 Unspecified place in unspecified non-institutional (private) residence as the place of occurrence of the external cause
CPT/HCPCS: 73020

== ENCOUNTER 2022-03-06 06:13 | Emergency (ER) | payer MEDICARE ==
[~2022-03-06 06:13] MED LIST changes: +OXYC1TAB11 PO; +POTA-177 PO; -POTA10TA37 PO
--- NOTE | 2022-03-06 06:32 | ED EENT ---
History of Present Illness General Stated Complaint: BOTH EARS PAINFUL & SWOLLEN Source: patient Exam Limitations: no limitations History of Present Illness Date Seen by Provider: Mar 06, 2022 Time Seen by Provider: 06:22 Initial Comments 71-year-old female presents emerged department today for bilateral ear pain. Symptoms present for about a week and 1/2 to 2 weeks. She has progressed worsening swelling, redness of bilateral ears. She has had "sores" behind bilateral ears for several months. She has been putting cream on it without much relief. No painful or difficulty swallowing, trismus. No eye pain or pain with extraocular movements. No fevers or chills. She has nausea without any vomiting. Allergies and Home Medications Allergies Coded Allergies: erythromycin base (Unverified Allergy, Severe, RASH, 10/03/14) Patient Home Medication List Home Medication List Reviewed: Yes Albuterol Sulfate (Albuterol Sulfate) 2.5 Mg/3 Ml Vial.neb, 2.5 MG IH Q6H PRN for SHORTNESS OF BREATH, (Reported) Entered as Reported by: DANIEL ODONNELL on 01/16/17 1108 Aspirin (Aspirin EC) 81 Mg Tablet.dr, 81 MG PO DAILY, (Reported) Entered as Reported by: OLVIN HOFFMAN on 02/13/20 1404 Atorvastatin Calcium (Atorvastatin Calcium) 80 Mg Tablet, 80 MG PO HS, (Reported) Entered as Reported by: DANIEL ODONNELL on 01/16/17 1108 Calcium Carbonate/Vitamin D3 (Calcium 500 + Vit D Caplet) 1 Each Tablet, 1 EACH PO DAILY, (Reported) Entered as Reported by: OLVIN HOFFMAN on 02/13/20 1418 Calcium Polycarbophil (Calcium Polycarbophil) 625 Mg Tablet, 625 MG PO HS, (Reported) Entered as Reported by: OLVIN HOFFMAN on 02/13/20 1404 Docusate Sodium (Stool Softener) 100 Mg Tablet, 100 MG PO HS, (Reported) Entered as Reported by: OLVIN HOFFMAN on 02/13/20 1418 Enalapril Maleate (Enalapril Maleate) 20 Mg Tablet, 20 MG PO DAILY, (Reported) Entered as Reported by: DANIEL ODONNELL on 01/16/17 1108 Furosemide (Furosemide) 80 Mg Tablet, 80 MG PO DAILY, (Reported) Entered as Reported by: OLVIN HOFFMAN on 02/13/20 1425 Gabapentin (Neurontin) 300 Mg Capsule, 300 MG PO TID, (Reported) Entered as Reported by: OLVIN HOFFMAN on 02/13/20 140 Insulin Aspart (Novolog Flexpen) 300 Units/3 Ml Solution, 25 UNITS SQ AC, (Reported) Entered as Reported by: DANIEL ODONNELL on 01/16/17 110 Insulin Detemir (Levemir Flextouch) 100 Unit/1 Ml Insuln.pen, 30 UNITS SQ BID, (Reported) Entered as Reported by: DANIEL ODONNELL on 01/16/17 110 Levothyroxine Sodium (Levothyroxine Sodium) 125 Mcg Tablet, 125 MCG PO DAILY, (Reported) Entered as Reported by: DANIEL ODONNELL on 01/16/171107 Montelukast Sodium (Montelukast Sodium) 10 Mg Tablet, 10 MG PO HS, (Reported) Entered as Reported by: DANIEL ODONNELL on 01/16/171107 Multivitamin with Minerals (One Daily Plus Minerals) 1 Each Tablet, 1 EACH PO DAILY, (Reported) Entered as Reported by: OLVIN HOFFMAN on 02/13/20 140 [place]-3/Dha/Epa/Fish Oil (Fish Oil 1,200 mg Softgel) 1,200 Mg Capsule, 1,200 MG PO DAILY, (Reported) Entered as Reported by: OLVIN HOFFMAN on 02/13/20 142 Oxycodone HCl/Acetaminophen (Oxycodone-Acetaminophen 5-325) 5 Mg-325 Mg Tablet, 1 EACH PO Q6H PRN for PAIN-MODERATE Prescribed by: UMESH JOSE on 12/03/21 1703 Potassium Chloride (Potassium Chloride) 10 Meq Tab.er.prt, 10 MEQ PO BID, (Reported) Entered as Reported by: DANIEL ODONNELL on 01/16/17 110 Sertraline HCl (Sertraline HCl) 25 Mg Tablet, 25 MG PO DAILY, (Reported) Entered as Reported by: OLVIN HOFFMAN on 02/13/20 140 Ubidecarenone (Co Q-10) 30 Mg Capsule, 30 MG PO DAILY, (Reported) Entered as Reported by: DANIEL ODONNELL on 01/16/17 110 Review of Systems Review of Systems Constitutional: no symptoms reported Eyes: No Symptoms Reported Ears: Pain, Other (Swelling) Nose: no symptoms reported Mouth: no symptoms reported Throat: no symptoms reported Respiratory: no symptoms reported Cardiovascular: no symptoms reported Gastrointestinal: nausea Musculoskeletal: no symptoms reported Skin: no symptoms reported Neurological: No Symptoms Reported Hematologic/Lymphatic: No Symptoms Reported Immunological/Allergic: no symptoms reported Past Owyadif-Qjuhml-Jaupgr Hx Patient Social History Tobacco Use?: No Use of E-Cig and/or Vaping dev: No Substance use?: No Alcohol Use?: No Immunizations Up To Date Tetanus Booster (TDap): Unknown PED Vaccines UTD: Yes Seasonal Allergies Seasonal Allergies: No Past Medical History Surgeries: Yes Hysterectomy, Tonsillectomy Respiratory: Yes Asthma Cardiac: No Heart Attack, Hypertension Neurological: No Female 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 Sexually Transmitted Disease: No HIV/AIDS: No Genitourinary: No UTI-Chronic Gastrointestinal: No Chronic Diarrhea Musculoskeletal: No Arthritis, Fibromyalgia Endocrine: No Diabetes, Insulin dep, Hypothyroidsim HEENT: No Cataract Hearing Impairment: Hard of Hearing Cancer: No Psychosocial: No Anxiety, Depression Integumentary: No Blood Disorders: No Adverse Reaction/Blood Tranf: No Family Medical History Reviewed Nursing Family Hx CVA 19 FATHER, Onset:Unknown FH: breast cancer 19 FATHER, Onset:Unknown FH: colon cancer 19 MOTHER, Onset:Unknown FHx: irritable bowel syndrome 19 MOTHER, Onset:Unknown Kidney stone 19 FATHER, Onset:Unknown No Pertinent Family Hx Physical Exam Height, Weight, BMI Height: 5'0.00" Weight: 228lbs. 0.0oz. 103.502392om; 45.00 BMI Method:Stated General Appearance: WD/WN, no apparent distress Eyes: bilateral eye normal inspection, bilateral eye PERRL, bilateral eye EOMI, bilateral eye abnormal EOM, bilateral eye abnormal pupil, bilateral eye A-V nicking, bilateral eye conjunctival hemorrhage, bilateral eye conjunctival inflammation, bilateral eye conjunctivae pale, bilateral eye corneal abrasion, bilateral eye lid inflammation, bilateral eye lid injury, bilateral eye lid injury, bilateral eye foreign body, bilateral eye hyphema, bilateral eye ocular penetration, bilateral eye lateral nystagmus, bilateral eye vertical nystagmus, bilateral eye papilledema, bilateral eye scleral icterus, bilateral eye stye, bilateral eye vision changes, bilateral eye other Ears: bilateral ear other (Bilateral otitis externa with some swelling of the external ear and ear canal. No purulence. TM is normal and intact bilaterally. There are abrasion type lesions behind both ears, appear fungal in nature.) Nose: normal inspection Mouth/Throat: normal mouth inspection, pharynx normal Neck: non-tender, full range of motion, normal inspection Cardiovascular: regular rate, rhythm, no edema, no gallop, no JVD, no murmur Respiratory: chest non-tender, lungs clear, normal breath sounds, no respiratory distress, no accessory muscle use Gastrointestinal: normal bowel sounds, non tender, soft, no organomegaly Neurologic/Psychiatric: alert, oriented x 3 Skin: normal color, warm/dry Departure Communication (Admissions) Patient is hemodynamically stable. Has what appears bilateral otitis externa, likely from the abrasions under ears which I think is from mask use. Complaining of oral antibiotics and treat conservatively at this time. Given strict return precautions advised follow-up with primary doctor in the next 2 to 3 days Impression Primary Impression: Bilateral otitis externa Qualified Codes: H60.393 - Other infective otitis externa, bilateral Disposition: HOME, SELF-CARE Condition: Stable Departure-Patient Inst. Decision time for Depature: 06:46 Referrals: HERACLIO MCBRIDE MD (PCP) Primary Care Physician [facility]/[place] (Family) Primary Care Physician Patient Instructions: Outer Ear Infection (DC) Add. Discharge Instructions: Take antibiotics as prescribed until they are gone. Follow-up with your primary doctor in the next 2 to 3 days. Return to the emergency department for worsening symptoms fevers vomiting or if your symptoms change in any way concerning to you. Scripts Ondansetron (Ondansetron Odt) 4 Mg Tab.rapdis 4 MG PO Q6H PRN for NAUSEA-1ST LINE for 7 Days, #20 TAB Prov: CORRIE BRUNSON DO 03/06/22 Clindamycin HCl (Clindamycin HCl) 150 Mg Capsule 300 MG PO TID for 7 Days, #54 CAP Prov: CORRIE BRUNSON DO 03/06/22 CORRIE BRUNSON DO Mar 06, 2022 06:32
[2022-03-06 06:36] VITALS: BP 149/78
[2022-03-06] MEDS ORDERED: CLIN150C20 PO (06:45)
[2022-03-06] MEDS ORDERED: ONDA4TAB11 PO (06:46)
== END 2022-03-06 06:56 | disposition home or self-care (01) ==
LOC: EDUNIT# 06:13 → ER 06:22
DX: H60.93 Unspecified otitis externa, bilateral (principal); E11.9 Type 2 diabetes mellitus without complications; Z79.4 Long term (current) use of insulin
CPT/HCPCS: 82947; 99283

== ENCOUNTER 2022-08-20 09:48 | Emergency (ER) | payer MEDICARE ==
[~2022-08-20] VITALS: Ht 152.4 cm; Wt 104.3 kg
[~2022-08-20 09:48] MED LIST changes: +CLIN150C20 PO; +ONDA4TAB11 PO; +UBID30CA10 PO; -UBID30CA20 PO
--- NOTE | 2022-08-20 11:16 | ED General ---
General Chief Complaint: General Problems/Pain Stated Complaint: AFIB Source of Information: Patient, Family Exam Limitations: No Limitations History of Present Illness Date Seen by Provider: Aug 20, 2022 Time Seen by Provider: 11:03 Initial Comments Patient is a 72-year-old female who presents to the emergency room by EMS for chief complaint of feeling lightheaded, dizzy, short of breath. She was riding with her son to the library this morning when he got stopped by the police. This caused her to feel very anxious. 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 Apparently after he dropped her off she continued to have persistent symptoms and EMS was called. EMS reported the patient was in A-fib. She has no history of A-fib. Upon my arrival into the room she is normal sinus rhythm at about 80 beats a minute. No ectopy is observed. Blood pressure is normal, oxygen saturations are normal. Patient appears calm and in no acute distress. She did take 2 [id number] "anxiety pills" prior to arrival. She denied having chest pain, nausea, abdominal pain. No recent symptoms of illness such as fevers, chills, URI/flu symptoms. No burning with urination or diarrhea. She does endorse a history of feeling very anxious/nervous anytime she leaves her house. Timing/Duration: 1-3 Hours Severity: Moderate Associated Systoms: Diaphoresis, Malaise, Nausea/Vomiting, Shortness of Air Allergies and Home Medications Allergies Coded Allergies: erythromycin base (Unverified Allergy, Severe, RASH, 10/03/14) Patient Home Medication List Home Medication List Reviewed: Yes Albuterol Sulfate (Albuterol Sulfate) 2.5 Mg/3 Ml Vial.neb, 2.5 MG IH Q6H PRN for SHORTNESS OF BREATH, (Reported) Entered as Reported by: DANIEL ODONNELL on 01/16/17 1108 Aspirin (Aspirin EC) 81 Mg Tablet.dr, 81 MG PO DAILY, (Reported) Entered as Reported by: OLVIN HOFFMAN on 02/13/20 1404 Atorvastatin Calcium (Atorvastatin Calcium) 80 Mg Tablet, 80 MG PO HS, (Repor jarrett) Entered as Reported by: DANIEL ODONNELL on 01/16/17 1108 Calcium Carbonate/Vitamin D3 (Calcium 500 + Vit D Caplet) 1 Each Tablet, 1 EACH PO DAILY, (Reported) Entered as Reported by: OLVIN HOFFMAN on 02/13/20 141 Calcium Polycarbophil (Calcium Polycarbophil) 625 Mg Tablet, 625 MG PO HS, (Reported) Entered as Reported by: OLVIN HOFFMAN on 02/13/20 140 Clindamycin HCl (Clindamycin HCl) 150 Mg Capsule, 300 MG PO TID Prescribed by: CORRIE BRUNSON MD on 03/06/22 0645 Docusate Sodium (Stool Softener) 100 Mg Tablet, 100 MG PO HS, (Reported) Entered as Reported by: OLVIN HOFFMAN on 02/13/20 141 Enalapril Maleate (Enalapril Maleate) 20 Mg Tablet, 20 MG PO DAILY, (Reported) Entered as Reported by: DANIEL ODONNELL on 01/16/17 110 Furosemide (Furosemide) 80 Mg Tablet, 80 MG PO DAILY, (Reported) Entered as Reported by: OLVIN HOFFMAN on 02/13/20 142 Gabapentin (Neurontin) 300 Mg Capsule, 300 MG PO TID, (Reported) Entered as Reported by: OLVIN HOFFMAN on 02/13/20 140 Insulin Aspart (Novolog Flexpen) 300 Units/3 Ml Solution, 25 UNITS SQ AC, (Reported) Entered as Reported by: DANIEL ODONNELL on 01/16/17 110 Insulin Detemir (Levemir Flextouch) 100 Unit/1 Ml Insuln.pen, 30 UNITS SQ BID, (Reported) Entered as Reported by: DANIEL ODONNELL on 01/16/17 110 Levothyroxine Sodium (Levothyroxine Sodium) 125 Mcg Tablet, 125 MCG PO DAILY, (Reported) Entered as Reported by: DANIEL ODONNELL on 01/16/17 110 Montelukast Sodium (Montelukast Sodium) 10 Mg Tablet, 10 MG PO HS, (Reported) Entered as Reported by: DANIEL ODONNELL on 01/16/17 110 Multivitamin with Minerals (One Daily Plus Minerals) 1 Each Tablet, 1 EACH PO DAILY, (Reported) Entered as Reported by: OLVIN HOFFMAN on 02/13/20 140 [place]-3/Dha/Epa/Fish Oil (Fish Oil 1,200 mg Softgel) 1,200 Mg Capsule, 1,200 MG PO DAILY, (Reported) Entered as Reported by: OLVIN HOFFMAN on 02/13/20 1422 Ondansetron (Ondansetron Odt) 4 Mg Tab.rapdis, 4 MG PO Q6H PRN for NAUSEA-1ST LINE Prescribed by: CORRIE BRUNSON MD on 03/06/22 0646 Oxycodone HCl/Acetaminophen (Oxycodone-Acetaminophen 5-325) 5 Mg-325 Mg Tablet, 1 EACH PO Q6H PRN for PAIN-MODERATE Prescribed by: UMESH JOSE on 12/03/21 1703 Potassium Chloride (Potassium Chloride) 10 Meq Tab.er.prt, 10 MEQ PO BID, (Reported) Entered as Reported by: DANIEL ODONNELL on 01/16/17 1108 Sertraline HCl (Sertraline HCl) 25 Mg Tablet, 25 MG PO DAILY, (Reported) Entered as Reported by: OLVIN HOFFMAN on 02/13/20 1404 Ubidecarenone (Co Q-10) 30 Mg Capsule, 30 MG PO DAILY, (Reported) Entered as Reported by: DANIEL ODONNELL on 01/16/17 1108 Past Lhhvwbl-Blvsyc-Kddodh Hx Immunizations Up To Date Tetanus Booster (TDap): Unknown PED Vaccines UTD: Yes Seasonal Allergies Seasonal Allergies: No Past Medical History Surgeries: Yes Hysterectomy, Tonsillectomy Respiratory: Yes Asthma Cardiac: No Heart Attack, Hypertension Neurological: No Female Reproductive Disorders: Denies [employer]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 Sexually Transmitted Disease: No HIV/AIDS: No Genitourinary: No UTI-Chronic Gastrointestinal: No Chronic Diarrhea Musculoskeletal: No Arthritis, Fibromyalgia Endocrine: No Diabetes, Insulin dep, Hypothyroidsim HEENT: No Cataract Hearing Impairment: Hard of Hearing Cancer: No Psychosocial: No Anxiety, Depression Integumentary: No Blood Disorders: No Adverse Reaction/Blood Tranf: No Family Medical History CVA 19 FATHER, Onset:Unknown FH: breast cancer 19 FATHER, Onset:Unknown FH: colon cancer 19 MOTHER, Onset:Unknown FHx: irritable bowel syndrome 19 MOTHER, Onset:Unknown Kidney stone 19 FATHER, Onset:Unknown No Pertinent Family Hx Physical Exam Vital Signs Vital Signs - First Documented 08/20/22 09:48 Temp 36.7 Pulse 73 Resp 18 B/P (MAP) 143/70 (94) Pulse Ox 95 O2 Delivery Room Air Capillary Refill : Height, Weight, BMI Height: 5'0.00" Weight: 228lbs. 0.0oz. 103.200248yd; 45.00 BMI Method:Stated Progress/Results/Core Measures Suspected Sepsis SIRS Temperature: Pulse: Respiratory Rate: Laboratory Tests 08/20/22 09:50: White Blood Count 11.3H Blood Pressure / Mean: Laboratory Tests 08/20/22 09:50: Creatinine 1.07, Platelet Count 387, Total Bilirubin 0.5 Results/Orders Lab Results Laboratory Tests Test 08/20/22 09:50 Range/Units White Blood Count 11.3 H 4.3-11.0 10^3/uL Red Blood Count 4.56 3.80-5.11 10^6/uL Hemoglobin 14.2 11.5-16.0 g/dL Hematocrit 43 35-52 % Mean Corpuscular Volume 93 80-99 fL Mean Corpuscular Hemoglobin 31 25-34 pg Mean Corpuscular Hemoglobin Concent 33 32-36 g/dL Red Cell Distribution Width 13.2 10.0-14.5 % Platelet Count 387 130-400 10^3/uL Mean Platelet Volume 10.2 9.0-12.2 fL Immature Granulocyte % (Auto) 1 % Neutrophils (%) (Auto) 74 42-75 % Lymphocytes (%) (Auto) 16 12-44 % Monocytes (%) (Auto) 7 0-12 % Eosinophils (%) (Auto) 2 0-10 % Basophils (%) (Auto) 1 0-10 % Neutrophils # (Auto) 8.3 H 1.8-7.8 10^3/uL Lymphocytes # (Auto) 1.8 1.0-4.0 10^3/uL Monocytes # (Auto) 0.8 0.0-1.0 10^3/uL Eosinophils # (Auto) 0.3 0.0-0.3 10^3/uL Basophils # (Auto) 0.1 0.0-0.1 10^3/uL Immature Granulocyte # (Auto) 0.1 0.0-0.1 10^3/uL Sodium Level 141 135-145 MMOL/L Potassium Level 3.6 3.6-5.0 MMOL/L Chloride Level 100 98-107 MMOL/L Carbon Dioxide Level 24 21-32 MMOL/L Anion Gap 17 H 5-14 MMOL/L Blood Urea Nitrogen 23 H 7-18 MG/DL Creatinine 1.07 0.60-1.30 MG/DL Estimat Glomerular Filtration Rate 55 BUN/Creatinine Ratio 21 Glucose Level 192 H 70-105 MG/DL Calcium Level 9.8 8.5-10.1 MG/DL Corrected Calcium 9.7 8.5-10.1 MG/DL Total Bilirubin 0.5 0.1-1.0 MG/DL Aspartate Amino Transf (AST/SGOT) 14 5-34 U/L Alanine Aminotransferase (ALT/SGPT) 18 0-55 U/L Alkaline Phosphatase 71 40-136 U/L Total Protein 8.1 6.4-8.2 GM/DL Albumin 4.1 3.2-4.5 GM/DL My Orders Orders - SHAYNE MENESES MD Ekg Tracing (08/20/22 11:16) Cbc With Automated Diff (08/20/22 11:16) Comprehensive Metabolic Panel (08/20/22 11:16) Vital Signs/I&O 08/20/22 08/20/22 09:48 12:43 Temp 36.7 36.7 Pulse 73 86 Resp 18 18 B/P (MAP) 143/70 (94) 122/75 Pulse Ox 95 98 O2 Delivery Room Air Room Air Capillary Refill : Progress Note : Time: 12:00 Progress Note Patient seen and examined. Evaluation today includes physical exam, CBC, chemistry and EKG. Exam is grossly unremarkable. Vital signs are stable, heart rate is in the upper 70s low 80s normal sinus rhythm. Differential diagnosis based on history and physical include A-fib with RVR that spontaneously resolved, anxiety/panic attack. Her labs have been reviewed, CBC is unremarkable, chemistry shows that she is mildly hyperglycemic in the 190s. EKG no ectopy, sinus rhythm at 83. I have reviewed the results with the patient. I did not have any confirmatory rhythm strips or EMS EKG to verify that the patient was indeed in A-fib. I recommended to the patient and her son who is at the bedside that she call and follow-up with Dr. Norris within the week. She feels back to baseline albeit somewhat fatigued. No clinical or objective findings to warrant further studies from the emergency department at this time. Patient and family are comfortable with plan of care. All questions are sought and answered. Patient is stable for discharge. ECG Initial ECG Impression Date: Aug 20, 2022 Initial ECG Impression Time: 10:10 Initial ECG Rate: 83 Initial ECG Rhythm: Normal Sinus Initial ECG Intervals AK 175 QRS 90 QTC 476 Comment Poor R wave progression V1 V2; No st elevation or depression; no ectopy Departure Impression Primary Impression: Palpitations Additional Impression: Anxiety Disposition: 01 HOME, SELF-CARE Condition: Improved Departure-Patient Inst. Decision time for Depature: 12:05 Referrals: HERACLIO MCBRIDE MD (PCP) Primary Care Physician [facility] (Family) Primary Care Physician Patient Instructions: Palpitations (DC) Add. Discharge Instructions: Continue your daily medications as prescribed by Dr. Mcbride. Please call Dr. Norris's office for a follow-up appointment next week. If you have any return of feelings of palpitations especially with shortness of breath, chest pain, nausea/vomiting please return to the emergency department for reevaluation. I have sent a copy of your chart with laboratory results to both Dr. Mcbride as well as Dr. Norris's office Copy Copies To 1: HERACLIO MCBRIDE MD Copies To 2: GUEVARA NORRIS MD, KATHRYN M MD Aug 20, 2022 11:16
[2022-08-20 11:23] LABS: BASOPHILS # (AUTO) 0.1 10^3/uL (0.0-0.1); BASOPHILS % (AUTO) 1 % (0-10); EOSINOPHILS # (AUTO) 0.3 10^3/uL (0.0-0.3); EOSINOPHILS % (AUTO) 2 % (0-10); HEMATOCRIT 43 % (35-52); HEMOGLOBIN 14.2 g/dL (11.5-16.0); LYMPHOCYTES # (AUTO) 1.8 10^3/uL (1.0-4.0); LYMPHOCYTES % (AUTO) 16 % (12-44); MEAN CORPUSCULAR HEMOGLOBIN 31 pg (25-34); MEAN CORPUSCULAR HGB CONC 33 g/dL (32-36); MEAN CORPUSCULAR VOLUME 93 fL (80-99); MEAN PLATELET VOLUME 10.2 fL (9.0-12.2); MONOCYTES # (AUTO) 0.8 10^3/uL (0.0-1.0); MONOCYTES % (AUTO) 7 % (0-12); NEUTROPHILS # (AUTO) 8.3 10^3/uL (1.8-7.8); NEUTROPHILS % (AUTO) 74 % (42-75); PLATELET COUNT 387 10^3/uL (130-400); WHITE BLOOD COUNT 11.3 10^3/uL (4.3-11.0)
[2022-08-20 11:30] LABS: ALBUMIN 4.1 GM/DL (3.2-4.5); POTASSIUM 3.6 MMOL/L (3.6-5.0)
[2022-08-20 11:31] LABS: CALCIUM 9.8 MG/DL (8.5-10.1)
[2022-08-20 11:32] LABS: TOTAL PROTEIN 8.1 GM/DL (6.4-8.2)
[2022-08-20 11:34] LABS: BILIRUBIN,TOTAL 0.5 MG/DL (0.1-1.0)
[2022-08-20 11:36] LABS: CREATININE SERUM 1.07 MG/DL (0.60-1.30)
[2022-08-20 12:43] VITALS: BP 122/75
[2022-08-21] MEDS ORDERED: ONDA4TAB11 PO (23:17)
[2022-08-21] MEDS ORDERED: DICY20TA PO (23:17)
== END 2022-08-20 12:43 | disposition home or self-care (01) ==
LOC: EDUNIT# 09:48 → ER 09:49
DX: F41.9 Anxiety disorder, unspecified (principal); E11.65 Type 2 diabetes mellitus with hyperglycemia
CPT/HCPCS: 36415; 80053; 85025; 93005

== ENCOUNTER 2022-08-21 19:53 | Emergency (ER) | payer MEDICARE ==
[~2022-08-21] VITALS: Ht 152.4 cm; Wt 118.0 kg
--- NOTE | 2022-08-21 20:10 | ED GI ---
General Stated Complaint: VOMITING - WEAKNESS History of Present Illness Date Seen by Provider: Aug 21, 2022 Time Seen by Provider: 20:10 Initial Comments 72-year-old female presents with some nausea is been going on since this morning. She feels like her belly is mildly distended. She has not had any vomiting. She is has some generalized malaise. No reports of diarrhea, no fevers chills or cough. She has Some diffuse crampy feeling over her belly but more just the nausea is the concern. Allergies and Home Medications Allergies Coded Allergies: erythromycin base (Unverified Allergy, Severe, RASH, 10/03/14) Patient Home Medication List Home Medication List Reviewed: Yes Albuterol Sulfate (Albuterol Sulfate) 2.5 Mg/3 Ml Vial.neb, 2.5 MG IH Q6H PRN for SHORTNESS OF BREATH, (Reported) Entered as Reported by: DANIEL ODONNELL on 01/16/17 1108 Aspirin (Aspirin EC) 81 Mg Tablet.dr, 81 MG PO DAILY, (Reported) Entered as Reported by: OLVIN HOFFMAN on 02/13/20 1404 Atorvastatin Calcium (Atorvastatin Calcium) 80 Mg Tablet, 80 MG PO HS, (Reported) Entered as Reported by: DANIEL ODONNELL on 01/16/17 1108 Calcium Carbonate/Vitamin D3 (Calcium 500 + Vit D Caplet) 1 Each Tablet, 1 EACH PO DAILY, (Reported) Entered as Reported by: OLVIN HOFFMAN on 02/13/20 1418 Calcium Polycarbophil (Calcium Polycarbophil) 625 Mg Tablet, 625 MG PO HS, (Reported) Entered as Reported by: OLVIN HOFFMAN on 02/13/20 1404 Clindamycin HCl (Clindamycin HCl) 150 Mg Capsule, 300 MG PO TID Prescribed by: CORRIE BRUNSON MD on 03/06/22 0645 Docusate Sodium (Stool Softener) 100 Mg Tablet, 100 MG PO HS, (Reported) Entered as Reported by: OLVIN HOFFMAN on 02/13/20 1418 Enalapril Maleate (Enalapril Maleate) 20 Mg Tablet, 20 MG PO DAILY, (Reported) Entered as Reported by: DANIEL ODONNELL on 01/16/17 1108 Furosemide (Furosemide) 80 Mg Tablet, 80 MG PO DAILY, (Reported) Entered as Reported by: OLVIN HOFFMAN on 02/13/20 142 Gabapentin (Neurontin) 300 Mg Capsule, 300 MG PO TID, (Reported) Entered as Reported by: OLVIN HOFFMAN on 02/13/20 140 Insulin Aspart (Novolog Flexpen) 300 Units/3 Ml Solution, 25 UNITS SQ AC, (Reported) Entered as Reported by: DANIEL ODONNELL on 01/16/17 110 Insulin Detemir (Levemir Flextouch) 100 Unit/1 Ml Insuln.pen, 30 UNITS SQ BID, (Reported) Entered as Reported by: DANIEL ODONNELL on 01/16/17 110 Levothyroxine Sodium (Levothyroxine Sodium) 125 Mcg Tablet, 125 MCG PO DAILY, (Reported) Entered as Reported by: DANIEL ODONNELL on 01/16/17 110 Montelukast Sodium (Montelukast Sodium) 10 Mg Tablet, 10 MG PO HS, (Reported) Entered as Reported by: DANIEL ODONNELL on 01/16/171107 Multivitamin with Minerals (One Daily Plus Minerals) 1 Each Tablet, 1 EACH PO DAILY, (Reported) Entered as Reported by: OLVIN HOFFMAN on 02/13/20 140 [place]-3/Dha/Epa/Fish Oil (Fish Oil 1,200 mg Softgel) 1,200 Mg Capsule, 1,200 MG PO DAILY, (Reported) Entered as Reported by: OLVIN HOFFMAN on 02/13/20 142 Ondansetron (Ondansetron Odt) 4 Mg Tab.rapdis, 4 MG PO Q6H PRN for NAUSEA-1ST LINE Prescribed by: CORRIE BRUNSON MD on 03/06/22 0646 Oxycodone HCl/Acetaminophen (Oxycodone-Acetaminophen 5-325) 5 Mg-325 Mg Tablet, 1 EACH PO Q6H PRN for PAIN-MODERATE Prescribed by: UMESH JOSE on 12/03/21 1703 Potassium Chloride (Potassium Chloride) 10 Meq Tab.er.prt, 10 MEQ PO BID, (Reported) Entered as Reported by: DANIEL ODONNELL on 01/16/17 110 Sertraline HCl (Sertraline HCl) 25 Mg Tablet, 25 MG PO DAILY, (Reported) Entered as Reported by: OLVIN HOFFMAN on 02/13/20 140 Ubidecarenone (Co Q-10) 30 Mg Capsule, 30 MG PO DAILY, (Reported) Entered as Reported by: DANIEL ODONNELL on 01/16/17 1108 Review of Systems Review of Systems Constitutional: No chills, No fever EENTM: No Symptoms Reported Respiratory: No Symptoms Reported Gastrointestinal: Abdomen Distended, Abdominal Pain; Denies Diarrhea; Nausea; Denies Vomiting Genitourinary: No Symptoms Reported Musculoskeletal: no symptoms reported Skin: no symptoms reported Psychiatric/Neurological: No Symptoms Reported Endocrine: No Symptoms Reported Hematologic/Lymphatic: No Symptoms Reported Past Cfmrhwu-Bhyoka-Ecmxdk Hx Immunizations Up To Date Tetanus Booster (TDap): Unknown PED Vaccines UTD: Yes First/Initial COVID19 Vaccinat: 2020 Seasonal Allergies Seasonal Allergies: No Past Medical History Surgery/Hospitalization HX: ANXIETY, CHF, HTN, [place], DIABETES, ASTHMA,HYPERLIPIDEMA,OSTEOPEROSIS Surgeries: Yes Hysterectomy, Tonsillectomy Respiratory: Yes Asthma Cardiac: No Heart Attack, Hypertension Neurological: No Female Reproductive Disorders: Denies [employer]UR[employer] MECH[employer]IC History: Hysterectomy Sexually Transmitted Disease: No HIV/AIDS: No Genitourinary: No UTI-Chronic Gastrointestinal: No Chronic Diarrhea Musculoskeletal: No Arthritis, Fibromyalgia Endocrine: No Diabetes, Insulin dep, Hypothyroidsim HEENT: No Cataract Hearing Impairment: Hard of Hearing Cancer: No Psychosocial: No Anxiety, Depression Integumentary: No Blood Disorders: No Adverse Reaction/Blood Tranf: No Family Medical History CVA 19 FATHER, Onset:Unknown FH: breast cancer 19 FATHER, Onset:Unknown FH: colon cancer 19 MOTHER, Onset:Unknown FHx: irritable bowel syndrome 19 MOTHER, Onset:Unknown Kidney stone 19 FATHER, Onset:Unknown No Pertinent Family Hx Physical Exam Vital Signs Vital Signs - First Documented 08/21/22 20:05 Temp 36.2 Pulse 83 Resp 16 B/P (MAP) 150/84 (106) Pulse Ox 95 O2 Delivery Room Air Capillary Refill : Height/Weight/BMI Height: 5'0.00" Weight: 228lbs. 0.0oz. 103.012728ql; 44.00 BMI Method:Stated General Appearance: WD/WN, no apparent distress Respiratory: lungs clear, normal breath sounds Cardiovascular: normal peripheral pulses, regular rate, rhythm Gastrointestinal: soft, distended (mild ), tenderness Neurologic/Psychiatric: alert, normal mood/affect, oriented x 3 Skin: warm/dry Progress/Results/Core Measures Results/Orders Lab Results Laboratory Tests Test 08/21/22 20:15 08/21/22 20:46 Range/Units White Blood Count 11.5 H 4.3-11.0 10^3/uL Red Blood Count 4.59 3.80-5.11 10^6/uL Hemoglobin 14.5 11.5-16.0 g/dL Hematocrit 42 35-52 % Mean Corpuscular Volume 92 80-99 fL Mean Corpuscular Hemoglobin 32 25-34 pg Mean Corpuscular Hemoglobin Concent 34 32-36 g/dL Red Cell Distribution Width 13.2 10.0-14.5 % Platelet Count 370 130-400 10^3/uL Mean Platelet Volume 9.5 9.0-12.2 fL Immature Granulocyte % (Auto) 1 % Neutrophils (%) (Auto) 71 42-75 % Lymphocytes (%) (Auto) 19 12-44 % Monocytes (%) (Auto) 8 0-12 % Eosinophils (%) (Auto) 1 0-10 % Basophils (%) (Auto) 0 0-10 % Neutrophils # (Auto) 8.1 H 1.8-7.8 10^3/uL Lymphocytes # (Auto) 2.2 1.0-4.0 10^3/uL Monocytes # (Auto) 0.9 0.0-1.0 10^3/uL Eosinophils # (Auto) 0.2 0.0-0.3 10^3/uL Basophils # (Auto) 0.1 0.0-0.1 10^3/uL Immature Granulocyte # (Auto) 0.1 0.0-0.1 10^3/uL Sodium Level 140 135-145 MMOL/L Potassium Level 3.8 3.6-5.0 MMOL/L Chloride Level 99 98-107 MMOL/L Carbon Dioxide Level 26 21-32 MMOL/L Anion Gap 15 H 5-14 MMOL/L Blood Urea Nitrogen 16 7-18 MG/DL Creatinine 1.05 0.60-1.30 MG/DL Estimat Glomerular Filtration Rate 56 BUN/Creatinine Ratio 15 Glucose Level 166 H 70-105 MG/DL Calcium Level 10.2 H 8.5-10.1 MG/DL Corrected Calcium 10.2 H 8.5-10.1 MG/DL Total Bilirubin 0.7 0.1-1.0 MG/DL Aspartate Amino Transf (AST/SGOT) 17 5-34 U/L Alanine Aminotransferase (ALT/SGPT) 17 0-55 U/L Alkaline Phosphatase 72 40-136 U/L C-Reactive Protein High Sensitivity 0.13 0.00-0.50 MG/DL Total Protein 7.9 6.4-8.2 GM/DL Albumin 4.0 3.2-4.5 GM/DL Lipase 23 8-78 U/L Urine Color YELLOW Urine Clarity CLOUDY Urine pH 8.5 5-9 Urine Specific [place] 1.010 L 1.016-1.022 Urine Protein TRACE H NEGATIVE Urine Glucose (UA) NEGATIVE NEGATIVE Urine Ketones NEGATIVE NEGATIVE Urine Nitrite NEGATIVE NEGATIVE Urine Bilirubin NEGATIVE NEGATIVE Urine Urobilinogen 1.0 < = 1.0 MG/DL Urine Leukocyte Esterase 3+ H NEGATIVE Urine RBC (Auto) NEGATIVE NEGATIVE Urine RBC 0-2 /HPF Urine WBC 50-100 H /HPF Urine Squamous Epithelial Cells TNTC H /HPF Urine Crystals PRESENT H /LPF Urine Amorphous Sediment MOD SYMONE PHOSPHATE H /LPF Urine Bacteria MODERATE H /HPF Urine Casts PRESENT /LPF Urine Hyaline Casts 2-5 H /LPF Urine Mucus SMALL H /LPF Urine Culture Indicated YES My Orders Orders - TAYLOR,DELON L DO Cbc With Automated Diff (08/21/22 20:21) Comprehensive Metabolic Panel (08/21/22 20:21) Hs C Reactive Protein (08/21/22 20:21) Lipase (08/21/22 20:21) Ua Culture If Indicated (08/21/22 20:21) Ondansetron Injection (Zofran Injectio (08/21/22 20:30) Urine Culture (08/21/22 20:46) Ct Abdomen/Pelvis W (08/21/22 21:25) Iohexol Injection (Omnipaque 350 Mg/Ml 1 (08/21/22 21:45) Received Contrast (Hold Metformin- Contr (08/21/22 21:45) Ns (Ivpb) (Sodium Chloride 0.9% Ivpb Bag (08/21/22 21:45) Metoclopramide Injection (Reglan Injecti (08/21/22 23:11) Dicyclomine Capsule (Bentyl Capsule) (08/21/22 23:15) Medications Given in ED Current Medications Medications Dose Ordered Sig/[place] Route Start Time Stop Time Status Last Admin Dose Admin Iohexol 100 ml ONCE ONCE IV 08/21/22 21:45 08/21/22 21:46 DC 08/21/22 21:53 100 ML Ondansetron HCl 4 mg ONCE ONCE IVP 08/21/22 20:30 08/21/22 20:31 DC 08/21/22 20:46 4 MG Sodium Chloride 100 ml ONCE ONCE IV 08/21/22 21:45 08/21/22 21:46 DC 08/21/22 21:54 80 ML Vital Signs/I&O 08/21/22 20:05 Temp 36.2 Pulse 83 Resp 16 B/P (MAP) 150/84 (106) Pulse Ox 95 O2 Delivery Room Air Progress Progress Note : Progress Note Patient labs showed a very minimal white count otherwise no significant acute findings. I did obtain a CT abdomen and pelvis with contrast. Reviewed that shows mild colitis but otherwise no significant acute findings. Patient's urine is contaminated so will await culture to determine if she needs to have further treatment. I will prescribe her Zofran and Bentyl to help with the colitis. I discussed with her that this is a self-limiting disease and that she should follow-up with her primary care provider if symptoms or not improved over the next 4 to 5 days. She can return to the ER if symptoms significantly worsen or change. She is stable and discharged Departure Impression Primary Impression: Colitis Disposition: 01 HOME, SELF-CARE Condition: Stable Departure-Patient Inst. Referrals: HERACLIO MCBRIDE MD (PCP) Primary Care Physician [facility] (Family) Primary Care Physician Patient Instructions: Colitis Add. Discharge Instructions: Clear liquid diet and advance as tolerated. Please follow-up with your primary care provider if your symptoms or not improving over the next couple days. You had been prescribed Zofran and Bentyl to help with the nausea and any cramping. Scripts Dicyclomine HCl (Dicyclomine HCl) 20 Mg Tablet 20 MG PO BID for Cramps, #1 TAB Prov: JAZMYN TAYLORVOR L DO 08/21/22 Ondansetron (Ondansetron Odt) 4 Mg Tab.rapdis 4 MG PO Q6H PRN for NAUSEA/VOMITING, #20 TAB 0 Refills Prov: TAYLOR,DELON L DO 08/21/22 DELON TAYLOR DO Aug 21, 2022 20:10
[2022-08-21 20:26] LABS: BASOPHILS # (AUTO) 0.1 10^3/uL (0.0-0.1); BASOPHILS % (AUTO) 0 % (0-10); EOSINOPHILS # (AUTO) 0.2 10^3/uL (0.0-0.3); EOSINOPHILS % (AUTO) 1 % (0-10); HEMATOCRIT 42 % (35-52); HEMOGLOBIN 14.5 g/dL (11.5-16.0); LYMPHOCYTES # (AUTO) 2.2 10^3/uL (1.0-4.0); LYMPHOCYTES % (AUTO) 19 % (12-44); MEAN CORPUSCULAR HEMOGLOBIN 32 pg (25-34); MEAN CORPUSCULAR HGB CONC 34 g/dL (32-36); MEAN CORPUSCULAR VOLUME 92 fL (80-99); MEAN PLATELET VOLUME 9.5 fL (9.0-12.2); MONOCYTES # (AUTO) 0.9 10^3/uL (0.0-1.0); MONOCYTES % (AUTO) 8 % (0-12); NEUTROPHILS # (AUTO) 8.1 10^3/uL (1.8-7.8); NEUTROPHILS % (AUTO) 71 % (42-75); PLATELET COUNT 370 10^3/uL (130-400); WHITE BLOOD COUNT 11.5 10^3/uL (4.3-11.0)
[2022-08-21 20:44] LABS: BILIRUBIN,TOTAL 0.7 MG/DL (0.1-1.0); CALCIUM 10.2 MG/DL (8.5-10.1); CREATININE SERUM 1.05 MG/DL (0.60-1.30); POTASSIUM 3.8 MMOL/L (3.6-5.0); TOTAL PROTEIN 7.9 GM/DL (6.4-8.2)
[2022-08-21] MEDS: ONDANSETRON 4 MG/2 ML (SDV) Z0FRAN IVP ONE (20:46)
[2022-08-21 20:53] LABS: BILIRUBIN,URINE NEGATIVE (NEGATIVE); CLARITY,URINE CLOUDY; COLOR,URINE YELLOW; GLUCOSE, URINE (UA) NEGATIVE (NEGATIVE); KETONES,URINE NEGATIVE (NEGATIVE); LEUKOCYTE ESTERASE ,URINE 3+ (NEGATIVE); NITRITE,URINE NEGATIVE (NEGATIVE); PH,URINE 8.5 (5-9); PROTEIN,URINE TRACE (NEGATIVE)
[2022-08-21 21:02] LABS: SQUAMOUS EPITHELIAL CELL,UR TNTC /HPF
[2022-08-21 21:06] LABS: AMORPHOUS SEDIMENT,UR MOD AMOR PHOSPHATE /LPF; BACTERIA,URINE MODERATE /HPF; RBC,URINE 0-2 /HPF; WBC,URINE 50-100 /HPF
[2022-08-21] MEDS ORDERED: HOLD METFORMIN - RECEIVED CONTRAST 20 ML VIAL IV SCH (21:45)
[2022-08-21] MEDS: IOHEXOL 350 MG/ML 100 ML (OMNIPAQUE 350) VIAL IV ONE (21:53)
[2022-08-21] MEDS: NS 100 ML (IVPB) BAG IV ONE (21:54)
[2022-08-21] MEDS ORDERED: DICY20TA PO (23:17)
[2022-08-21] MEDS ORDERED: ONDA4TAB11 PO (23:17)
[2022-08-21] MEDS: METOCLOPRAMIDE INJ 10 MG/2 ML (REGLAN) IVP STA (23:25)
[2022-08-21] MEDS: DICYCLOMINE 10 MG (BENTYL) CAP PO ONE (23:25)
[2022-08-21 23:26] VITALS: BP 117/66
--- NOTE | 2022-08-22 07:43 | Diagnostic Imaging Report ---
PROCEDURE: CT abdomen and pelvis with contrast. TECHNIQUE: Multiple contiguous axial images were obtained through the abdomen and pelvis after administration of intravenous contrast. Auto Exposure Controls were utilized during the CT exam to meet ALARA standards for radiation dose reduction. All CT scans use one or more of the following dose optimizing techniques: automated exposure control, MA and/or KvP adjustment based on patient size and exam type or iterative reconstruction. INDICATION: Abdominal pain, abdominal distention and nausea Images of the lower thorax reveal coronary artery calcification as well as calcifications at the aortic valve. There is slight basilar atelectasis and/or scarring. Gallbladder surgically absent without evidence of focal hepatic, splenic or pancreatic abnormality. There is no significant biliary ductal dilatation. Nonobstructing calculus is seen within the midportion of the right kidney. There is no hydronephrosis. There is no evidence of ascites. Abdomen appears to enhance which may be due to intra-abdominal lipomatosis. There is thinning of the anterior abdominal wall with protrusion of fat and bowel loops however no focal hernia is identified. There is no evidence of pathologically enlarged adenopathy. Unopacified bladder is unremarkable. There is localized L4-L5 degenerative disc disease. IMPRESSION: Nonobstructing 0.5 cm right renal calculus without acute abnormality seen within the abdomen or pelvis. Dictated by: Dictated on workstation # [id number]
== END 2022-08-21 23:29 | disposition home or self-care (01) ==
LOC: EDUNIT# 19:53 → ER 19:54
DX: K52.9 Noninfective gastroenteritis and colitis, unspecified (principal); E11.9 Type 2 diabetes mellitus without complications; Z79.01 Long term (current) use of anticoagulants
CPT/HCPCS: 36415; 74177; 80053; 81000; 83690; 85025; 86141; 87088

== ENCOUNTER → 2022-09-05 | Outpatient (CLI) | payer MEDICARE ==
[~2022-09-05] MED LIST changes: +DICY20TA PO
--- NOTE | 2022-09-05 14:55 | Diagnostic Imaging Report ---
INDICATION: Low back pain. EXAMINATION: Lumbar spine MRI without contrast, 09/05/2022. FINDINGS: There is normal height and alignment of the vertebral bodies other than minimal loss of height along the superior endplate at L2 which appears chronic. There is no associated edema. The visualized cord and tip of the conus are unremarkable in appearance and location. T11-T12 demonstrates a right paracentral disc extrusion which impresses upon the anterior aspect of the cord and causes moderate to near severe severe central stenosis. No cord compression is seen at this time; however, surgical consultation may be warranted. L1-L2: There is bilateral facet and ligamentum flavum hypertrophy. There is disc desiccation with minimal bulging disc material. No significant central stenosis is appreciated. There is moderate bilateral neural foraminal narrowing. L2-L3: There is a broad-based bulging disc. There is bilateral facet and ligamentum flavum hypertrophy with no central stenosis. There is moderate bilateral neural foraminal narrowing. L3-L4: There is mild broad-based bulging disc material with bilateral facet and ligamentum flavum hypertrophy. There is no significant central stenosis. There is moderate bilateral neural foraminal narrowing, left greater than right. L4-L5: There is disc desiccation with a broad-based bulging disc. There is bilateral facet and ligamentum flavum hypertrophy. There is moderate central stenosis with narrowing of the left lateral recess. There is moderate bilateral neural foraminal stenosis. L5-S1: There is disc desiccation with a broad-based bulging disc. There is bilateral facet and ligamentum flavum hypertrophy, left greater than right. There is moderate central stenosis with narrowing of the left lateral recess and likely encroaching upon the transiting left nerve root. There is moderate bilateral neural foraminal stenosis. The visualized intra-abdominal structures unremarkable for acute abnormality. IMPRESSION: 1. Multilevel degenerative findings, as discussed above. 2. Prominent right paracentral disc extrusion at T11-T12 causing [id number] severe central stenosis and pushing the cord posteriorly. See above discussion and recommendations. Dictated by: Dictated on workstation # [id number]
== END ==
LOC: RAD 13:29
PROVIDERS: ATTEND Family Medicine
DX: M47.816 Spondylosis without myelopathy or radiculopathy, lumbar region (principal); M47.817 Spondylosis without myelopathy or radiculopathy, lumbosacral region; M51.24 Other intervertebral disc displacement, thoracic region; M51.26 Other intervertebral disc displacement, lumbar region; M48.04 Spinal stenosis, thoracic region; M51.27 Other intervertebral disc displacement, lumbosacral region; M51.37 Other intervertebral disc degeneration, lumbosacral region; M48.061 Spinal stenosis, lumbar region without neurogenic claudication; M48.07 Spinal stenosis, lumbosacral region
CPT/HCPCS: 72148